=== PATIENT | male | born 1955 | race Caucasian/White ===

== ENCOUNTER 2016-03-06 17:58 | Inpatient (IN) | payer BC ==
[~2016-03-06] VITALS: Ht 170.2 cm; Wt 85.9 kg
[~2016-03-06 17:58] MED LIST: AMLO-114 PO; VALS1TAB33 PO
[2016-03-06] MEDS ORDERED: ASPIRIN 324 MG CHEW PO STA (18:29)
--- NOTE | 2016-03-06 18:32 | EMERGENCY ROOM VISIT NOTE ---
History Report prepared by Cari: Jacob Leon Under the Supervision of: Dr. Eren Davidson M.D. First contact with patient: 18:21 Chief Complaint: TACHYCARDIA Stated Complaint: RACING HEART,LIGHT HEADED, HIGH BP, DIZZY History of Present Illness The patient is a 61 year old male who presents to the Emergency Room with complaints of intermittent episodes of lightheadedness that occurred earlier today. The patient felt like if he did not hold onto something he would have passed out. The patient was experiencing diaphoresis with the lightheadedness episodes. He also felt his heart pounding and felt like he was skipping beats. His symptoms came in waves. He has a history of hypertension, and his blood pressure was even higher than baseline when he measured it earlier today. He did not miss his hypertension medications today. The patient was also experiencing indigestion. He was watching football with friends when the symptoms occurred. He notes that he ate a lot of salty foods today. The patient denies any history of heart disease. He has never had his heart scanned. Source of History: patient Onset: earlier today Position: other (global) Quality: other (lightheadedness) Timing: intermittent Associated Symptoms: + diaphoresis Review of Systems See HPI for pertinent positives & negatives. A total of 10 systems reviewed and were otherwise negative. Past Medical & Surgical Medical Problems: (1) HTN (hypertension) Social History Smoking Status: Never Smoker Marital Status: Housing Status: lives with family Current/Historical Medications Scheduled Amlodipine (Norvasc), 10 MG PO QAM Ascorbic Acid (Vitamin C), 1 TAB PO QAM Atorvastatin (Lipitor), 10 MG PO QPM Fish Oil ([place]-3), 2 CAP PO QAM Multivitamin (Multivitamin), 1 TAB PO QAM Valsartan/Hctz (Valsartan/Hydrochlorothia), 1 TAB PO QAM Allergies Coded Allergies: Levofloxacin (Verified Allergy, Unknown, DIFFICULTY WALKING, 09/17/15) Triamcinolone (Verified Allergy, Unknown, BLEEDING, 09/17/15) Physical Exam Vital Signs Date Time Temp Pulse Resp B/P Pulse Ox O2 Delivery O2 Flow Rate FiO2 03/06/16 18:57 81 144/84 89 145/85 93 140/86 03/06/16 18:37 Room Air 03/06/16 18:29 82 03/06/16 18:14 36.7 86 18 150/93 97 Room Air Physical Exam CONSTITUTIONAL: Mild distress. HEENT: No icterus, moist mucous membranes NECK: No meningismus, trachea is midline. CARDIOVASCULAR: Regular rate, normal perfusion. Infrequent PVCs on monitor. RESPIRATORY: Unlabored breathing. Clear to auscultation. GASTROINTESTINAL: Non-tender GENITOURINARY: No flank tenderness MUSCULOSKELETAL: Full range of motion NEUROLOGIC: No acute gross focal deficits. PSYCHIATRIC: Normal affect SKIN: Normal for ethnicity. Medical Decision & Procedures ER Provider Diagnostic Interpretation: X-ray results as stated below per interpretation by me and the radiologist. SINGLE VIEW CHEST CLINICAL HISTORY: Atypical chest pain. Palpitations. FINDINGS: An AP, portable, upright chest radiograph is compared to study dated 10/04/2008. The examination is degraded by portable technique and patient rotation. The heart is mildly enlarged. The pulmonary vasculature is noncongested. There are low lung volumes. Airspace opacities are seen at the left lung base. The lungs are otherwise clear. No pleural effusion or pneumothorax is seen. The bony thorax is grossly intact. IMPRESSION: 1. There are low lung volumes with airspace opacities at the left lung base. This likely represents atelectasis. Correlate clinically for evidence of an infectious or inflammatory pneumonitis. 2. The lungs are otherwise clear. 3. Mild cardiac enlargement without radiographic evidence of congestive failure. Electronically signed by: Willard Suazo M.D. 03/06/2016 7:35 PM Laboratory Results 03/06/16 18:30 Red Blood Count 4.83, Mean Corpuscular Volume 86.5, Mean Corpuscular Hemoglobin 31.3, Mean Corpuscular Hemoglobin Concent 36.1, Mean Platelet Volume 9.1, Neutrophils (%) (Auto) 55.7, Lymphocytes (%) (Auto) 31.2, Monocytes (%) (Auto) 9.5, Eosinophils (%) (Auto) 2.9, Basophils (%) (Auto) 0.6, Neutrophils # (Auto) 3.98, Lymphocytes # (Auto) 2.23, Monocytes # (Auto) 0.68, Eosinophils # (Auto) 0.21, Basophils # (Auto) 0.04 03/06/16 18:30 Test 03/06/16 18:30 White Blood Count 7.15 K/uL (4.8-10.8) Red Blood Count 4.83 M/uL (4.7-6.1) Hemoglobin 15.1 g/dL (14.0-18.0) Hematocrit 41.8 % (42-52) Mean Corpuscular Volume 86.5 fL (80-100) Mean Corpuscular Hemoglobin 31.3 pg (25-34) Mean Corpuscular Hemoglobin Concent 36.1 g/dl (32-36) Platelet Count 175 K/uL (130-400) Mean Platelet Volume 9.1 fL (7.4-10.4) Neutrophils (%) (Auto) 55.7 % Lymphocytes (%) (Auto) 31.2 % Monocytes (%) (Auto) 9.5 % Eosinophils (%) (Auto) 2.9 % Basophils (%) (Auto) 0.6 % Neutrophils # (Auto) 3.98 K/uL (1.4-6.5) Lymphocytes # (Auto) 2.23 K/uL (1.2-3.4) Monocytes # (Auto) 0.68 K/uL (0.11-0.59) Eosinophils # (Auto) 0.21 K/uL (0-0.5) Basophils # (Auto) 0.04 K/uL (0-0.2) RDW Standard Deviation 40.4 fL (36.4-46.3) RDW Coefficient of Variation 12.8 % (11.5-14.5) Immature Granulocyte % (Auto) 0.1 % Immature Granulocyte # (Auto) 0.01 K/uL (0.00-0.02) Prothrombin Time 10.5 SECONDS (9.0-12.0) Prothromb Time International Ratio 1.0 (0.9-1.1) Activated Partial Thromboplast Time 24.4 SECONDS (21.0-31.0) Partial Thromboplastin Ratio 0.9 Anion Gap 13.0 mmol/L (3-11) Est Creatinine Clear Calc Drug Dose 73.8 ml/min Estimated GFR () 83.5 Estimated GFR (Non- 72.1 BUN/Creatinine Ratio 17.7 (10-20) Calcium Level 9.1 mg/dl (8.5-10.1) Magnesium Level 2.3 mg/dl (1.8-2.4) Troponin I < 0.015 ng/ml (0-0.045) Labs reviewed by ED physician. Medications Administered Medications (Trade) Dose Ordered Sig/Giles Route Start Time Stop Time Status Last Admin Dose Admin Aspirin (Aspirin Chew) 324 mg NOW STAT PO 03/06/16 18:29 03/06/16 18:32 DC 03/06/16 18:59 324 MG ECG Indication: diaphoresis, other (lightheadedness) Rate (beats per minute): 84 Rhythm: sinus rhythm Findings: nonspecific-ST abn, no ectopy, other (normal intervals) ED Course 1823: Past medical records reviewed. The patient was evaluated in room B3b. A complete history and physical examination was performed. 1828: Aspirin 324 mg PO. 1944: Hospitalist service paged. 1947: Updated the patient. He is doing well. I discussed everything with him. He understands and agrees with the plan. 1999: Spoke with Dr. Martinez, [facility]. The patient will be evaluated. 2005: Potassium Chloride 40 meq PO, Potassium Chloride 40 meq IV. Medical Decision Differential diagnosis includes coronary artery disease, cardiac dysrhythmia, electrolyte abnormality. 61-year-old without previous cardiac history presents to the emergency room this New Year's for evaluation of palpitations, nausea and lightheadedness with near-syncope but no loss of consciousness. Review of systems was negative for cardiac or pulmonary complaints and no prior history of cardiac disease. EKG did not show any ST changes concerning for STEMI and troponin was normal. Potassium noted to be 2.8 and patient is on valsartan hydrochlorothiazide as well as amlodipine for high blood pressure. He remained hemodynamically stable throughout the emergency room course without any palpitations or chest pains although infrequent PVCs were noted on the monitor. Potassium supplementation was ordered both IV and by mouth and case discussed with Dr. Byrd for admission. Consults Time Called: 1994 Consulting Physician: Dr. Martinez [place] Hospitalist Returned Call: 1999 1999: Spoke with Dr. Martinez [facility]. The patient will be evaluated. Impression Primary Impression: Palpitations Additional Impression: Hypokalemia Scribe Attestation The scribe's documentation has been prepared under my direction and personally reviewed by me in its entirety. I confirm that the note above accurately reflects all work, treatment, procedures, and medical decision making performed by me. Departure Information Dispostion Being Evaluated By Hospitalist Referrals Hever Myers M.D. (PCP) Patient Instructions A Signature Page, My [facility]
[2016-03-06 18:48] LABS: BASO % 0.6 %; BASO ABS # 0.04 K/uL (0-0.2); COMPLETE YES; EOS % 2.9 %; HEMATOCRIT 41.8 % (42-52); IG% 0.1 %; LYMPH % 31.2 %; LYMPH ABS # 2.23 K/uL (1.2-3.4); MEAN CELL VOLUME 86.5 fL (80-100); MEAN CORPUSCULAR HEMOGLOBIN 31.3 pg (25-34); MEAN CORPUSCULAR HGB CONC 36.1 g/dl (32-36); MEAN PLATELET VOLUME 9.1 fL (7.4-10.4); MONO % 9.5 %; NEUT % 55.7 %; PLATELET COUNT 175 K/uL (130-400); RED BLOOD COUNT 4.83 M/uL (4.7-6.1); WHITE BLOOD COUNT 7.15 K/uL (4.8-10.8)
[2016-03-06 18:58] LABS: PARTIAL THROMBOPLASTIN RATIO 0.9; PROTHROMBIN TIME (PATIENT) 10.5 SECONDS (9.0-12.0)
[2016-03-06 19:05] LABS: BLOOD UREA NITROGEN 19 mg/dl (7-18); BUN/CREATININE RATIO 17.7 (10-20); CALCIUM 9.1 mg/dl (8.5-10.1); CARBON DIOXIDE 26 mmol/L (21-32); CHLORIDE 104 mmol/L (98-107); GLUCOSE 143 mg/dl (70-99); POTASSIUM 2.8 mmol/L (3.5-5.1); SODIUM 143 mmol/L (136-145)
--- NOTE | 2016-03-06 19:37 | DIAGNOSTIC IMAGING REPORT ---
SINGLE VIEW CHEST CLINICAL HISTORY: Atypical chest pain. Palpitations. FINDINGS: An AP, portable, upright chest radiograph is compared to study dated 10/04/2008. The examination is degraded by portable technique and patient rotation. The heart is mildly enlarged. The pulmonary vasculature is noncongested. There are low lung volumes. Airspace opacities are seen at the left lung base. The lungs are otherwise clear. No pleural effusion or pneumothorax is seen. The bony thorax is grossly intact. IMPRESSION: 1. There are low lung volumes with airspace opacities at the left lung base. This likely represents atelectasis. Correlate clinically for evidence of an infectious or inflammatory pneumonitis. 2. The lungs are otherwise clear. 3. Mild cardiac enlargement without radiographic evidence of congestive failure. Electronically signed by: Willard Suazo M.D. 03/06/2016 7:35 PM
[2016-03-06] MEDS ORDERED: POTASSIUM CHLORIDE 10 MEQ / 100ML WTR IV STA (20:06)
[2016-03-06] MEDS ORDERED: POTASSIUM CHLORIDE 10 MEQ TABCR PO STA (20:06)
[2016-03-06] MEDS ORDERED: VALS320T2 PO (20:16)
[2016-03-06] MEDS ORDERED: METOPROLOL TARTRATE 50 MG TAB PO STA (21:13)
[2016-03-06] MEDS ORDERED: NITROGLYCERIN 0.4 MG SL PER TAB CHARGE SL PRN (21:15)
[2016-03-06] MEDS ORDERED: ZOLPIDEM TARTRATE 5 MG TAB PO PRN (21:15)
[2016-03-06] MEDS ORDERED: ACETAMINOPHEN 325 MG TAB PO PRN (21:15)
[2016-03-06] MEDS ORDERED: ONDANSETRON INJ 2 MG/ML 2 ML VIAL IV PRN (21:15)
[2016-03-06 21:34] LABS: CKMB/CK RATIO 1.6 (0-3.0)
[2016-03-06 21:40] VITALS: Ht 170.2 cm; Wt 85.9 kg
[2016-03-06 22:15] VITALS: BP 171/93; PULSE 71; TEMP 36.7; O2SAT 96
[2016-03-06] MEDS: POTASSIUM CHLR 10MEQ / WTR IV SCH ×2 (22:19→23:32)
[2016-03-06] MEDS: NSS + 20MEQ KCL 1000ML 1,000 ML IV SCH (22:20)
[2016-03-06] MEDS: NITROGLYCERIN OINT 2% 1GM PACKET EXT SCH (22:59)
[2016-03-06 23:58] VITALS: BP 144/65; PULSE 61; TEMP 37; O2SAT 91
[2016-03-07] VITALS (7 sets, daily range): BP systolic 125–149; BP diastolic 70–82; PULSE 57–76; TEMP 36.7–37; O2SAT 91–96
[2016-03-07] MEDS: POTASSIUM CHLR 10MEQ / WTR IV SCH (00:46)
--- NOTE | 2016-03-07 02:10 | History and Physical ---
History & Physical Date & Time of Service: Mar 07, 2016 at 01:58 Chief Complaint: Acs,Hypokalemia Primary Care Physician: Hever Myers M.D. History of Present Illness Source: patient The patient is a 61-year-old male who presents emergency department with complaint of intermittent episodes of lightheadedness, diaphoresis, palpitations and near syncope that occurred earlier in the day prior to arrival. He reports that these symptoms happened when he was standing today. He notes that he had been eating a lot of salty foods today which is unusual for him. He's never had these symptoms before, and has never had any stress testing in the past. Past Medical/Surgical History Medical Problems: (1) HTN (hypertension) Status: Chronic Social History Smoking Status: Never Smoker Smokeless Tobacco Use: No Alcohol Use: none Drug Use: none Marital Status: Housing status: lives with family Multi-Drug Resistant Organisms History of MDRO: No Allergies Coded Allergies: Levofloxacin (Verified Allergy, Unknown, DIFFICULTY WALKING, 09/17/15) Triamcinolone (Verified Allergy, Unknown, BLEEDING, 09/17/15) Home Medications Scheduled Amlodipine (Norvasc), 10 MG PO QAM Ascorbic Acid (Vitamin C), 500 MG PO QAM Atorvastatin (Lipitor), 10 MG PO QPM Fish Oil ([place]-3), 2 CAP PO QAM Multivitamin (Multivitamin), 1 TAB PO QAM Valsartan/Hctz (Diovan Hct 320MG/25MG), 1 TAB PO DAILY Review of Systems The patient denies cough, lower extremity swelling, vision change, hearing change, sore throat, fevers, chills, sweats, weight change, fatigue, nausea, vomiting, abdominal pain, pelvic pain, blood in urine or stool, dysuria, urinary frequency or urgency, headache, memory loss, rash, abnormal bruising or bleeding, focal or generalized weakness, numbness or tingling in arms or legs, arthralgias or myalgias, back or neck pain, night sweats, or allergy symptoms. The review of systems is otherwise negative other than for that already noted above, and at least 10 systems have been reviewed. Physical Exam Vital Signs Date Time Temp Pulse Resp B/P Pulse Ox O2 Delivery O2 Flow Rate FiO2 03/07/16 00:05 Room Air 03/06/16 23:58 37.0 61 20 144/65 91 Room Air 03/06/16 22:15 36.7 71 18 171/93 96 Room Air 03/06/16 21:41 98 16 158/98 97 03/06/16 21:40 Room Air 03/06/16 20:33 85 16 164/94 95 Room Air 03/06/16 18:57 81 144/84 89 145/85 93 140/86 03/06/16 18:37 Room Air 03/06/16 18:29 82 03/06/16 18:14 36.7 86 18 150/93 97 Room Air The patient is awake, well-developed and adequately nourished, alert and oriented 3, normocephalic and atraumatic, lying in bed and in no acute distress. HEENT--PERRL, EOMI, mucous membranes moist, and oropharynx normal. Neck--supple, no JVD or bruits, thyroid normal, trachea midline, no adenopathy. Heart--normal S1 and S2, frequent extra beats during exam and noted on monitor, no murmurs, rubs or gallops. Lungs--clear bilaterally with good air movement, no respiratory distress, no accessory muscle use. Abdomen--normal bowel sounds and soft, nontender and nondistended, no hernias or masses, no organomegaly. Extremities--no cyanosis, clubbing or edema. There are good distal pulses b/l. Dermatologic--normal skin turgor, normal color, warm and dry, no abnormal lymph nodes, no rash. Neurologic--cranial nerves II through XII grossly intact. Rheumatologic--normal range of motion, nontender, muscles and joints. Psychiatric--normal affect. Diagnostics Laboratory Results Results Past 24 Hours Test 03/06/16 18:30 03/06/16 20:30 Range/Units White Blood Count 7.15 4.8-10.8 K/uL Red Blood Count 4.83 4.7-6.1 M/uL Hemoglobin 15.1 14.0-18.0 g/dL Hematocrit 41.8 42-52 % Mean Corpuscular Volume 86.5 80-100 fL Mean Corpuscular Hemoglobin 31.3 25-34 pg Mean Corpuscular Hemoglobin Concent 36.1 32-36 g/dl Platelet Count 175 130-400 K/uL Mean Platelet Volume 9.1 7.4-10.4 fL Neutrophils (%) (Auto) 55.7 % Lymphocytes (%) (Auto) 31.2 % Monocytes (%) (Auto) 9.5 % Eosinophils (%) (Auto) 2.9 % Basophils (%) (Auto) 0.6 % Neutrophils # (Auto) 3.98 1.4-6.5 K/uL Lymphocytes # (Auto) 2.23 1.2-3.4 K/uL Monocytes # (Auto) 0.68 0.11-0.59 K/uL Eosinophils # (Auto) 0.21 0-0.5 K/uL Basophils # (Auto) 0.04 0-0.2 K/uL RDW Standard Deviation 40.4 36.4-46.3 fL RDW Coefficient of Variation 12.8 11.5-14.5 % Immature Granulocyte % (Auto) 0.1 % Immature Granulocyte # (Auto) 0.01 0.00-0.02 K/uL Prothrombin Time 10.5 9.0-12.0 SECONDS Prothromb Time International Ratio 1.0 0.9-1.1 Activated Partial Thromboplast Time 24.4 21.0-31.0 SECONDS Partial Thromboplastin Ratio 0.9 Sodium Level 143 136-145 mmol/L Potassium Level 2.8 3.5-5.1 mmol/L Chloride Level 104 98-107 mmol/L Carbon Dioxide Level 26 21-32 mmol/L Anion Gap 13.0 3-11 mmol/L Blood Urea Nitrogen 19 7-18 mg/dl Creatinine 1.10 0.60-1.40 mg/dl Est Creatinine Clear Calc Drug Dose 73.8 ml/min Estimated GFR () 83.5 Estimated GFR (Non- 72.1 BUN/Creatinine Ratio 17.7 10-20 Random Glucose 143 70-99 mg/dl Calcium Level 9.1 8.5-10.1 mg/dl Magnesium Level 2.3 1.8-2.4 mg/dl Troponin I < 0.015 < 0.015 0-0.045 ng/ml Total Creatine Kinase 181 39-308 U/L Creatine Kinase MB 2.9 0.5-3.6 ng/ml Creatine Kinase MB Ratio 1.6 0-3.0 Diagnostic Radiology Patient Name: FLORIN GAUTHIER Horace Unit Number: [id number] Dictated: 03/06/161933 Transcribed: 03/06/161933 EV Printed Date/Time: [~ rep prt dt]/[~ rep prt tm] [~ rep ct labl] - [~ rep ct ivnm] [facility] [place] [address] Dictated: 03/06/161933 Transcribed: 03/06/161933 EV Printed Date/Time: [~ rep prt dt]/[~ rep prt tm] [~ rep ct labl] - [~ rep ct ivnm] CLINICAL HISTORY: Atypical chest pain. Palpitations. FINDINGS: An AP, portable, upright chest radiograph is compared to study dated 10/04/2008. The examination is degraded by portable technique and patient rotation. The heart is mildly enlarged. The pulmonary vasculature is noncongested. There are low lung volumes. Airspace opacities are seen at the left lung base. The lungs are otherwise clear. No pleural effusion or pneumothorax is seen. The bony thorax is grossly intact. IMPRESSION: 1. There are low lung volumes with airspace opacities at the left lung base. This likely represents atelectasis. Correlate clinically for evidence of an infectious or inflammatory pneumonitis. 2. The lungs are otherwise clear. 3. Mild cardiac enlargement without radiographic evidence of congestive failure. Electronically signed by: Willard Suazo M.D. 03/06/2016 7:35 PM The status of this report is Signed. Draft = Not yet reviewed or approved by Radiologist. Signed = Reviewed and approved by Radiologist. <AttendingPhy></AttendingPhy> <FamilyPhy>Hever Myers M.D.</FamilyPhy > <PrimaryPhy>Hever Myers M.D.</PrimaryPhy> <UnitNumber>[id number]</ UnitNumber> <VisitNumber>[id number]</VisitNumber> <PatientName>FLORIN GAUTHIER</PatientName> <DateOfBirth>1955</DateOfBirth> <Location>C.EDB</ Location> <ServiceDate>03/06/16</ServiceDate> <MNE>ESINDI</MNE> <OrderingPhy> Yoon Davidson MD</OrderingPhy> <OrderingPhyMNE>f rep ord dr perkins</OrderingPhyMNE > <DictatingPhyMNE>f rep dict dr perkins</DictatingPhyMNE> <CCListMNE>f rep ct marciae</ CCListMNE> <AdmittingPhyMNE>f pt admit dr perkins</AdmittingPhyMNE> <AttendingPhyMNE >f pt attend dr perkins</AttendingPhyMNE> <ConsultingPhyMNE>f pt consult dr perkins</ConsultingPhyMNE> <FamilyPhyMNE>f pt fam dr perkins</FamilyPhyMNE> <OtherPhyMNE>f pt other dr perkins</OtherPhyMNE> < PrimaryPhyMNE>f pt prim care dr perkins</PrimaryPhyMNE> <ReferringPhyMNE>f pt referring dr perkins</ReferringPhyMNE> EKG EKG shows normal sinus rhythm at 84, with possible old inferior wall IN, ST depressions of 1/2 millimeter in V3 and V5, and 1 mm in V4. Follow up EKG shows resolution of above ST depressions. Impression Assessment and Plan ACS/hypokalemia/PACs/PVCs/near syncope--the patient will be admitted to the telemetry unit, for serial cardiac enzymes, cardiac rhythm monitoring, and a 2- D echocardiogram with Dopplers. He'll be started on aspirin 81 mg by mouth daily, placed on Nitropaste 1 inch ACW every 6 hours. We'll stop amlodipine 10 mg by mouth daily, and start metoprolol tartrate 50 mg by mouth twice a day. We 'll change valsartan/HCTZ 320/25 to valsartan and 320 mg by mouth daily. He is been given potassium chloride 40 mEq by mouth in the ED, and ordered 40 mEq IV as well. We'll order follow-up BMP and magnesium levels for the a.m. We'll consult cardiology to assess patient in the a.m. Hyperlipidemia--continue atorvastatin 10 mg by mouth every afternoon and fish oil 2 capsules by mouth every morning. Hyperglycemia--blood sugar upon admission was 143, which check a hemoglobin A1c. Level of Care Telemetry Advanced Directives Existing Advance Directive: No Existing Living Will: No Existing Power of Bale Coverer: No Resuscitation Status FULL RESUSCITATION VTE Prophylaxis VTE Risk Assessment Done? Y/N: Yes Risk Level: Low Given or contraindicated: SCD's Social Service Consult None Apply
[2016-03-07] MEDS: NITROGLYCERIN OINT 2% 1GM PACKET EXT SCH ×2 (06:03→12:35)
[2016-03-07 07:18] LABS: BASO % 0.6 %; BASO ABS # 0.04 K/uL (0-0.2); COMPLETE YES; EOS % 2.6 %; HEMATOCRIT 37.5 % (42-52); IG% 0.1 %; LYMPH % 27.9 %; LYMPH ABS # 1.91 K/uL (1.2-3.4); MEAN CELL VOLUME 88.2 fL (80-100); MEAN CORPUSCULAR HEMOGLOBIN 30.6 pg (25-34); MEAN CORPUSCULAR HGB CONC 34.7 g/dl (32-36); MEAN PLATELET VOLUME 9.5 fL (7.4-10.4); MONO % 9.8 %; PLATELET COUNT 161 K/uL (130-400); RED BLOOD COUNT 4.25 M/uL (4.7-6.1); WHITE BLOOD COUNT 6.84 K/uL (4.8-10.8)
[2016-03-07 07:28] LABS: PARTIAL THROMBOPLASTIN RATIO 0.9; PROTHROMBIN TIME (PATIENT) 10.5 SECONDS (9.0-12.0)
[2016-03-07 07:47] LABS: BUN/CREATININE RATIO 18.4 (10-20); CALCIUM 8.2 mg/dl (8.5-10.1); CREATININE 0.9 mg/dl (0.60-1.40); MAGNESIUM 2.3 mg/dl (1.8-2.4); POTASSIUM 3.9 mmol/L (3.5-5.1)
[2016-03-07 08:05] LABS: ESTIMATED AVERAGE GLUCOSE 103 mg/dl; HA1C FLAG Normal (Normal)
[2016-03-07] MEDS ORDERED: VALSARTAN 80 MG TAB PO SCH (09:00)
[2016-03-07] MEDS ORDERED: ASCORBIC ACID 500 MG TAB PO SCH (09:00)
[2016-03-07] MEDS: NSS + 20MEQ KCL 1000ML 1,000 ML IV SCH (09:00)
[2016-03-07] MEDS ORDERED: OMEGA-3 (PURIFIED FISH OIL) 1 GM CAP PO SCH (09:00)
[2016-03-07] MEDS ORDERED: METOPROLOL TARTRATE 50 MG TAB PO SCH (09:00)
[2016-03-07] MEDS ORDERED: ASPIRIN 81 MG ECTAB PO SCH (09:00)
[2016-03-07] MEDS ORDERED: MULTIVITAMIN TAB PO SCH (09:00)
[2016-03-07] MEDS ORDERED: POTASSIUM CHLORIDE 20 MEQ/15 ML UDC PO ONE (10:00)
--- NOTE | 2016-03-07 10:46 | ECHOCARDIOGRAM REPORT ---
*NOTICE TO RECEIVING [employer] This information is strictly Confidential and protected under [place] law. [place] law prohibits you from making any further disclosure of this information unless further disclosure is expressly permitted by the written consent of the person to whom it pertains or is authorized by law. A general authorization for the release of medical or other information is not sufficient for this purpose. Hospital accepts no responsibility if the information is made available to any other person, INCLUDING THE PATIENT. Interpretation Summary * Name: FLORIN GAUTHIER Study Date: 03/07/2016 08:00 AM BP: 125/70 mmHg * Patient Location: [facility] HR: 60 * : 1955 (M/d/yyyy) Gender: Male Height: 67 in * Age: 61 yrs Ethnicity: CA Weight: 188 lb * Ordering Physician: SARINA SANDRA MD * Performed By: Nancy Travis * * Reason For Study: ACS * BSA: 2.0 m2 * -- Conclusions -- * 1. Normal LV size and wall thickness. * 2. Normal LV systolic function. LVEF 60-65%. Moderate posterior wall hypokinesis. * 3. Normal RV size and function. * 4. Grade I diastolic dysfunction. * 5. No significant valvular pathology. * 6. Normal estimated RA and PA pressures. * 7. No prior study for comparison. Procedure Details * A complete two-dimensional transthoracic echocardiogram was performed (2D, M-mode, Doppler and color flow Doppler). Left Ventricle * The left ventricle is grossly normal size. * There is normal left ventricular wall thickness. * Ejection Fraction = 60-65%. * There is moderate posterior wall hypokinesis. Right Ventricle * The right ventricle is grossly normal size. * The right ventricular systolic function is normal as assessed by tricuspid annular plane systolic excursion (TAPSE) (normal >1.5 cm). Atria * The left atrial size is normal. * Right atrial size is normal. * No ASD detected; PFO is not assessed. Mitral Valve * The mitral valve is grossly normal. * There is no mitral valve stenosis. * There is trace mitral regurgitation. Tricuspid Valve * The tricuspid valve is not well visualized, but is grossly normal. * There is no tricuspid stenosis. * There is trace tricuspid regurgitation. Aortic Valve * The aortic valve opens well. * No hemodynamically significant valvular aortic stenosis. * There is no significant aortic regurgitation. Pulmonic Valve * The pulmonic valve is not well seen, but is grossly normal. * There is no pulmonic valvular stenosis. * Trace pulmonic valvular regurgitation. Great Vessels * The aortic root and proximal ascending aorta are normal sized. Pericardium/Pleural * There is no pericardial effusion. Great Vessels * Normal inferior vena cava size and collapsability with sniff indicates a normal right atrial pressure of 3 mmHg Left Ventricular Diastolic Function * Grade I diastolic dysfunction, (abnormal relaxation pattern). MMode 2D Measurements and Calculations IVSd 1.1 cm IVSs 1.6 cm LVIDd 4.7 cm LVIDs 3.0 cm LVPWd 0.78 cm LVPWs 2.1 cm IVS/LVPW 1.5 FS 37.7 % EDV(Teich) 104.9 ml ESV(Teich) 33.9 ml EF(Teich) 67.7 % EDV(cubed) 107.1 ml ESV(cubed) 25.9 ml EF(cubed) 75.8 % % IVS thick 35.3 % % LVPW thick 166.2 % LV mass(C)d 158.8 grams LV mass(C)dI 80.6 grams/m\S\2 LV mass(C)s 216.3 grams LV mass(C)sI 109.8 grams/m\S\2 CO(Teich) 3.8 l/min CI(Teich) 1.9 l/min/m\S\2 SV(Teich) 71.0 ml SI(Teich) 36.0 ml/m\S\2 CO(cubed) 4.4 l/min CI(cubed) 2.2 l/min/m\S\2 SV(cubed) 81.2 ml SI(cubed) 41.2 ml/m\S\2 ACS 1.4 cm asc Aorta Diam 3.5 cm LVOT diam 2.3 cm LVOT area 4.0 cm\S\2 LVAd ap4 31.8 cm\S\2 LVLd ap4 8.5 cm EDV(MOD-sp4) 99.1 ml LVAs ap4 15.1 cm\S\2 LVLs ap4 6.8 cm ESV(MOD-sp4) 28.4 ml EF(MOD-sp4) 71.3 % LVAd ap2 28.4 cm\S\2 LVLd ap2 8.1 cm EDV(MOD-sp2) 84.5 ml LVAs ap2 13.8 cm\S\2 LVLs ap2 6.4 cm ESV(MOD-sp2) 25.3 ml EF(MOD-sp2) 70.1 % CO(MOD-sp4) 3.8 l/min CI(MOD-sp4) 1.9 l/min/m\S\2 SV(MOD-sp4) 70.7 ml SI(MOD-sp4) 35.9 ml/m\S\2 CO(MOD-sp2) 3.2 l/min CI(MOD-sp2) 1.6 l/min/m\S\2 SV(MOD-sp2) 59.2 ml SI(MOD-sp2) 30.1 ml/m\S\2 Doppler Measurements and Calculations MV E max magnolia 61.0 cm/sec MV A max magnolia 93.2 cm/sec MV E/A 0.65 MV dec time 0.19 sec Ao V2 max 116.2 cm/sec Ao max PG 5.4 mmHg Ao max PG (full) 1.2 mmHg NOAH(V,A) 3.5 cm\S\2 NOAH(V,D) 3.5 cm\S\2 LV V1 max PG 4.2 mmHg LV V1 mean PG 2.0 mmHg LV V1 max 102.4 cm/sec LV V1 mean 65.5 cm/sec LV V1 VTI 22.2 cm MR max magnolia 499.2 cm/sec MR max PG 99.7 mmHg SV(LVOT) 88.8 ml SI(LVOT) 45.1 ml/m\S\2 PA V2 max 48.7 cm/sec PA max PG 0.95 mmHg PI end-d magnolia 92.3 cm/sec TR max magnolia 264.6 cm/sec
[2016-03-07] MEDS ORDERED: NURSING VERBAL MED ORDER ONE (12:00)
[2016-03-07] MEDS ORDERED: PANTOprazole SOD 40 MG TAB PO ONE (12:15)
--- NOTE | 2016-03-07 15:55 | Medical Student: [facility] ---
Med Student History & Physical Date & Time of Service: Mar 07, 2016 at 15:50 Chief Complaint: Acs,Hypokalemia Primary Care Physician: Hever Myers M.D. History of Present Illness Source: patient, hospital records Pt is a 61 yo male with a history of hypertension and reflux, who presented to the ED yesterday with "severe" lightheadedness, palpitations accompanied by diaphoresis. Pt states these symptoms waxed and waned, with some improvement en route to hospital and worsening upon arrival at hospital. Pt was at a football constitution party eating salty foods when he suddenly felt very light headed and was near syncope. Pt denied any chest pain or shortness of breath associated with the episode. No n/v/d, abdominal pain, fever or chills. Pt denies previous cardiovascular sxs including GA, PVD or stroke. Past Medical/Surgical History Medical Problems: (1) Hypokalemia Status: Acute (2) Palpitations Status: Acute Family History Father - hx of cardiac bypass surgery, T2DM Mother - hx of heart failure, enlarged heart Siblings - no chronic medical conditions known. Social History Smoking Status: Never Smoker Smokeless Tobacco Use: No Alcohol Use: glass of wine daily Drug Use: none Marital Status: Housing status: lives with family Occupational Status: employed Allergies Coded Allergies: Levofloxacin (Verified Allergy, Unknown, DIFFICULTY WALKING, 09/17/15) Triamcinolone (Verified Allergy, Unknown, BLEEDING, 09/17/15) Medications Amlodipine (Norvasc), 10 MG PO QAM Ascorbic Acid (Vitamin C), 500 MG PO QAM Atorvastatin (Lipitor), 10 MG PO QPM Fish Oil ([place]-3), 2 CAP PO QAM Multivitamin (Multivitamin), 1 TAB PO QAM Valsartan (Diovan), 1 TAB PO DAILY Review of Systems Constitutional: + sweats, No chills, No fever Eyes: No diplopia, No worsening of vision Respiratory: No cough, No dyspnea at rest, No dyspnea on exertion, No shortness of breath Cardiovascular: + palpitations, No chest pain, No edema, No orthopnea Abdomen: No constipation, No diarrhea, No nausea, No pain, No vomiting Integumentary: + rash Physical Exam Vital Signs (24 Hours) Date Time Temp Pulse Resp B/P Pulse Ox O2 Delivery O2 Flow Rate FiO2 03/07/16 14:55 37.0 64 16 143/79 95 Room Air 03/07/16 12:00 Room Air 03/07/16 11:42 37.0 58 18 149/82 96 Room Air 03/07/16 09:32 57 03/07/16 08:00 95 Room Air 03/07/16 07:06 36.7 60 20 125/70 95 Room Air 03/07/16 05:05 36.8 76 20 130/72 91 Room Air 03/07/16 04:15 Room Air 03/07/16 00:05 Room Air 03/06/16 23:58 37.0 61 20 144/65 91 Room Air 03/06/16 22:15 36.7 71 18 171/93 96 Room Air 03/06/16 21:41 98 16 158/98 97 03/06/16 21:40 Room Air 03/06/16 20:33 85 16 164/94 95 Room Air 03/06/16 18:57 81 144/84 89 145/85 93 140/86 03/06/16 18:37 Room Air 03/06/16 18:29 82 03/06/16 18:14 36.7 86 18 150/93 97 Room Air General Appearance: WD/WN, no apparent distress Head: normocephalic, atraumatic Eyes: normal inspection, EOMI, sclerae normal Neck: supple, no adenopathy, no JVD, no carotid bruits Respiratory/Chest: lungs clear, normal breath sounds, no respiratory distress, no accessory muscle use Cardiovascular: regular rate, rhythm, no edema, no gallop, no JVD, no murmur, normal peripheral pulses Abdomen/GI: non tender, soft Extremities/Musculoskelatal: normal inspection, no pedal edema Neurologic/Psych: no motor/sensory deficits, alert, normal mood/affect Skin: normal color, warm/dry, no rash Diagnostics Laboratory Results Results Past 24 Hours Test 03/06/16 18:30 03/06/16 20:30 03/07/16 06:36 Range/Units White Blood Count 7.15 6.84 4.8-10.8 K/uL Red Blood Count 4.83 4.25 4.7-6.1 M/uL Hemoglobin 15.1 13.0 14.0-18.0 g/dL Hematocrit 41.8 37.5 42-52 % Mean Corpuscular Volume 86.5 88.2 80-100 fL Mean Corpuscular Hemoglobin 31.3 30.6 25-34 pg Mean Corpuscular Hemoglobin Concent 36.1 34.7 32-36 g/dl Platelet Count 175 161 130-400 K/uL Mean Platelet Volume 9.1 9.5 7.4-10.4 fL Neutrophils (%) (Auto) 55.7 59.0 % Lymphocytes (%) (Auto) 31.2 27.9 % Monocytes (%) (Auto) 9.5 9.8 % Eosinophils (%) (Auto) 2.9 2.6 % Basophils (%) (Auto) 0.6 0.6 % Neutrophils # (Auto) 3.98 4.03 1.4-6.5 K/uL Lymphocytes # (Auto) 2.23 1.91 1.2-3.4 K/uL Monocytes # (Auto) 0.68 0.67 0.11-0.59 K/uL Eosinophils # (Auto) 0.21 0.18 0-0.5 K/uL Basophils # (Auto) 0.04 0.04 0-0.2 K/uL RDW Standard Deviation 40.4 42.6 36.4-46.3 fL RDW Coefficient of Variation 12.8 13.2 11.5-14.5 % Immature Granulocyte % (Auto) 0.1 0.1 % Immature Granulocyte # (Auto) 0.01 0.01 0.00-0.02 K/uL Prothrombin Time 10.5 10.5 9.0-12.0 SECONDS Prothromb Time International Ratio 1.0 1.0 0.9-1.1 Activated Partial Thromboplast Time 24.4 24.6 21.0-31.0 SECONDS Partial Thromboplastin Ratio 0.9 0.9 Sodium Level 143 145 136-145 mmol/L Potassium Level 2.8 3.9 3.5-5.1 mmol/L Chloride Level 104 111 98-107 mmol/L Carbon Dioxide Level 26 26 21-32 mmol/L Anion Gap 13.0 8.0 3-11 mmol/L Blood Urea Nitrogen 19 17 7-18 mg/dl Creatinine 1.10 0.90 0.60-1.40 mg/dl Est Creatinine Clear Calc Drug Dose 73.8 90.3 ml/min Estimated GFR () 83.5 106.5 Estimated GFR (Non- 72.1 91.9 BUN/Creatinine Ratio 17.7 18.4 10-20 Random Glucose 143 101 70-99 mg/dl Calcium Level 9.1 8.2 8.5-10.1 mg/dl Magnesium Level 2.3 2.3 1.8-2.4 mg/dl Troponin I < 0.015 < 0.015 0-0.045 ng/ml Total Creatine Kinase 181 39-308 U/L Creatine Kinase MB 2.9 0.5-3.6 ng/ml Creatine Kinase MB Ratio 1.6 0-3.0 Estimated Average Glucose 103 mg/dl Hemoglobin A1c 5.2 4.5-5.6 % Phosphorus Level 2.6 2.5-4.9 mg/dl Impression Assessment and Plan Pt is 61 yo male who presented with near syncope and was found to be hypokalemic. Possible etiologies include ACS, electrolyte abnormalities secondary to HCTZ, cardiac dysrhythmias. Hypokalemia 1. K replacement with KCL 2. Stop Valsartan/HCTZ, start Valsartan alone to help replenish K. Lightheadedness/PVCs 1. Continue to monitor troponins q 6 hrs. 2. Cardiology Consult - Echocardiogram, Stress Test 3. Monitor BP, bradycardia (likely secondary to beta oscar). Consider d/c pending Cardiology consult. Full Resuscitation. Medical Student Supervision Note: Please see my separate documentation of care for this patient. Documented By: Santiago Zuleta Advanced Directives Existing Advance Directive: No Existing Living Will: No Existing Power of Fabrication Mig Welder: No
[2016-03-07] MEDS ORDERED: AMLO-114 PO (16:13)
[2016-03-07] MEDS ORDERED: VALS320T PO (16:13)
--- NOTE | 2016-03-07 16:17 | Discharge Instructions ---
Discharge Instructions Admission Reason for Admission: Acs,Hypokalemia Discharge Discharge Diagnosis / Problem: Low potassium level. Discharge Goals Goal(s): Improve disease control Activity Recommendations Activity Limitations: resume your previous activity Exercise/Sports Limitations: gradually increase as tolerated May Resume Sexual Activity: when tolerated Shower/Bathe: no limitations Driving or Machine Use: no limitations . Instructions / Follow-Up Instructions / Follow-Up Follow up with your PCP to review your blood pressure medications. Get a "Basic Metabolic Panel" checked to check your POTASSIUM level. This was most recently 3.9 on 03/07/16, and was 2.8 when you were admitted on 03/06/16. Some of your blood pressure medications were also changed The medication VALSARTAN-HYDROCHLOROTHIAZIDE was stopped, and we prescribed VALSARTAN 320mg to take once a day. This was sent to your preferred pharmacy. Keep taking the Amlodipine 10mg once a day. Current Hospital Diet Patient's current hospital diet: AHA Diet (Heart Healthy) Discharge Diet Recommended Diet: AHA Diet (Heart Healthy) Procedures Procedures Performed: Echocardiogram Stress test Pending Studies Studies pending at discharge: no Laboratory Results Hemoglobin A1c Test 03/07/16 06:36 Range/Units Estimated Average Glucose 103 mg/dl Hemoglobin A1c 5.2 4.5-5.6 % Medical Emergencies . Who to Call and When: Medical Emergencies: If at any time you feel your situation is an emergency, please call 911 immediately. . Non-Emergent Contact Non-Emergency issues call your: Primary Care Provider . . "Provider Documentation" section prepared by Janet Brunson. VTE Core Measure Inpt VTE Proph given/why not?: SCD's
--- NOTE | 2016-03-07 16:25 | Discharge Summary ---
Discharge Summary Admission Date: Mar 06, 2016 at 20:59 Discharge Date: Mar 07, 2016 Discharge Disposition: Home Principal Diagnosis: Hypokalemia. Procedures: ECHOCARDIOGRAM 03/07/16: * -- Conclusions -- * 1. Normal LV size and wall thickness. * 2. Normal LV systolic function. LVEF 60-65%. Moderate posterior wall hypokinesis. * 3. Normal RV size and function. * 4. Grade I diastolic dysfunction. * 5. No significant valvular pathology. * 6. Normal estimated RA and PA pressures. * 7. No prior study for comparison. STRESS TEST COMPLETED: Pending final read by time of discharge, but negative per Cardiology. (Janet Brunson MD) Medication Reconciliation New Medications: Valsartan (Diovan) 320 Mg Tab 1 TAB PO DAILY for 30 Days, #30 TAB 5 Refills Continued Medications: Amlodipine (Norvasc) 10 Mg Tab 10 MG PO QAM for 30 Days, #30 TAB (This prescription has been renewed) Ascorbic Acid (Vitamin C) 500 Mg Tab 500 MG PO QAM Atorvastatin (Lipitor) 10 Mg Tab 10 MG PO QPM, TAB Fish Oil ([place]-3) 1 Ea Cap 2 CAP PO QAM, CAP Multivitamin (Multivitamin) Tab 1 TAB PO QAM, TAB Discontinued Medications: Valsartan/Hctz (Diovan Hct 320MG/25MG) 1 Tab Tab 1 TAB PO DAILY, TAB Discharge Exam Review of Systems: Constitutional: No chills, No fatigue, No fever, No sweats, No weakness, No weight loss Eyes: No worsening of vision ENT: No hearing loss Respiratory: No cough, No dyspnea at rest, No dyspnea on exertion, No shortness of breath, No sputum, No wheezing Cardiovascular: No PND, No chest pain, No claudication, No edema, No orthopnea Abdomen: No constipation, No diarrhea, No nausea, No pain, No vomiting Musculoskeletal: No calf pain, No joint pain, No muscle pain, No swelling Genitourinary - Female: No dysuria, No urinary frequency, No urinary urgency Genitourinary - Male: No dysuria, No hematuria, No urinary frequency, No urinary urgency Neurologic: No memory loss, No paralysis, No weakness Psychiatric: No depression symptoms Endocrine: No fatigue Hematologic / Lymphatic: No abnormal bleeding/bruising Integumentary: No rash Physical Exam: General Appearance: WD/WN, no apparent distress Eyes: normal inspection, PERRL ENT: hearing grossly normal Neck: supple, no JVD Respiratory/Chest: lungs clear, normal breath sounds, no respiratory distress Cardiovascular: regular rate, rhythm, no murmur, normal peripheral pulses Abdomen / GI: normal bowel sounds, non tender, soft Extremities: no calf tenderness, no pedal edema Neurologic/Psychiatric: alert, normal mood/affect, normal reflexes, oriented x 3 Skin: no rash Lymphatic: no adenopathy (Janet Brunson MD) Hospital Course HPI: The patient is a 61 year old male who presents to the Emergency Room with complaints of intermittent episodes of lightheadedness that occurred earlier today. The patient felt like if he did not hold onto something he would have passed out. The patient was experiencing diaphoresis with the lightheadedness episodes. He also felt his heart pounding and felt like he was skipping beats. His symptoms came in waves. He has a history of hypertension, and his blood pressure was even higher than baseline when he measured it earlier today. He did not miss his hypertension medications today. The patient was also experiencing indigestion. He was watching football with friends when the symptoms occurred. He notes that he ate a lot of salty foods today. The patient denies any history of heart disease. He has never had his heart scanned. 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 Stress test negative - final report pending. - Was reviewed by Cardiology - BP meds adjusted - Valsartan-HCTZ stopped, Valsartan 320mg daily started, Amlodipine continued, Metoprolol given as inpatient but pt was borderline bradycardic Hypokalemia - Was repleted with PO and IV supplementation - Discharge level 3.9, was 2.8 on admission Hyperlipidemia - Is tolerating 10mg atorvastatin, would recommend increasing to higher dose once BP meds stable Screening for DM - HbA1c <6 Total Time Spent: Greater than 30 minutes This includes examination of the patient, discharge planning, medication reconciliation, and communication with other providers. (Janet Brunson MD) Resident Physician Supervision Note: I was present with Dr. Brunson during the history and exam. I discussed the case with the resident and agree with the findings and plan as documented in the note. I also personally discussed the case with Dr. Lopez of cardiology after he reviewed the stress images. Recommend 1) Stop ARB-HCTZ combination in light of hypokalemia and discharge on ARB. 2) Was started on beta oscar as inpatient but had some bradycardia; given normal stress test, will stop beta oscar and resume home dose of Norvasc. 3) He will need outpatient follow up in 1-2 weeks to check BMP (potassium) and blood pressure. Documented By: Santiago Zuleta (Santiago Zuleta.,D.O.) Discharge Instructions Please refer to the electronic Patient Visit Report (Discharge Instructions) for additional information. (Janet Brunson MD) Follow-Up Within 1 week to have potassium level rechecked and BP checked (Janet Brunson MD) Additional Copies To Hever Myers M.D. Resident Tracking Resident Involvement: Resident Care Provided Care Provided: Adult Hospital Medicine (Janet Brunson MD)
--- NOTE | 2016-03-07 16:26 | EXERCISE STRESS ECHO ---
*NOTICE TO RECEIVING CONSTITUTION PARTY AGENCY This information is strictly Confidential and protected under [place] law. [place] law prohibits you from making any further disclosure of this information unless further disclosure is expressly permitted by the written consent of the person to whom it pertains or is authorized by law. A general authorization for the release of medical or other information is not sufficient for this purpose. Hospital accepts no responsibility if the information is made available to any other person, INCLUDING THE PATIENT. Interpretation Summary * Name: FLORIN GAUTHIER Study Date: 03/07/2016 03:12 PM BP: 157/84 mmHg * Patient Location: [facility] HR: 68 * : 1955 (M/d/yyyy) Gender: Male Height: 67 in * Age: 61 yrs Ethnicity: [place] Weight: 189 lb * Ordering Physician: MD Hever Lopez MD * Performed By: Nancy Travis * * Reason For Study: syncope * BSA: 2.0 m2 * -- Conclusions -- * 1. Negative exercise stress echo for ischemia at 91% MPHR. Appropriate augmentation of resting hypokinetic posterior wall * 2. No exercise induced ST changes. Frequent PVCs with periods of bigeminy during stress. No couplets or sustained arrhythmias. * 3. Excellent functional capacity. Exercised 10:18 mins, achieving 12.2 METS. * 4. No exercise induced chest pain * 5. Normal hemodynamic response to exercise. * 6. See Echo report from earlier today for full details regarding rest images. Procedure Details * ECHOEX, CPT #84851 Left Ventricular Findings with Stress * This was essentially a normal study. Stress Parameters * Normal baseline electrocardiogram. * Stress ECG: No ST changes. No arrhythmias. * Frequent PVCs with periods of bigeminy during stress. No couplets or sustained arrhythmias. * The stress portion of this study was personally supervised by the undersigned interpreting physician. * Rest heart rate was '68' BPM. * Rest blood pressure was '157/84' * Maximum heart rate achieved was 146 bpm. * Maximum heart rate was 91 % of maximum age-predicted heart rate. * Maximum blood pressure was '183/83' * Total exercise time was '10:18' * Maximum exercise MET level achieved was '12.20' METS * Maximum treadmill speed was '4.20' miles per hour. * Maximum treadmill elevation was '16.00'% grade. * Normal blood pressure response to exercise. * Test terminated due to target heart rate achieved. Left Ventricular Findings with Stress * The study was technically adequate.
--- NOTE | 2016-03-07 19:59 | CARDIOLOGY CONSULTATION ---
DATE OF CONSULTATION: 03/07/2016 CONSULTATION REQUESTED BY: Hung Martinez MD REASON FOR CONSULTATION: Chest pain, question of ACS. HISTORY OF PRESENT ILLNESS: Mr. Melara is a very pleasant 61-year-old man with a history of hypertension and GERD, who presented to the Emergency Department yesterday after an episode of lightheadedness and palpitations. The patient states that he had been in his normal state of health up until mid afternoon, when after getting up and talking with guests at his home, he started to feel dizzy with associated palpitations and diaphoresis. He denied any associated chest pain or shortness of breath, but due to the symptoms was concerned and presented to the Emergency Department. The patient states that at baseline he is very active; walks and runs without symptoms, although not as much recently. He denies any prior history of chest pain. He has no significant cardiac history in the past. In the Emergency Department, the patient was initially hypertensive with blood pressure up to the 170s. Orthostatics were negative. He was afebrile and satting well on room air. He had a chest x-ray which showed mild cardiomegaly, but no significant pulmonary vascular congestion and no acute cardiopulmonary process. His troponins were negative x2. He had an initial EKG which showed normal sinus rhythm with no significant dynamic ST changes. There was question of an inferior infarct noted on his first and second EKG, not seen on the third EKG. The patient remained chest pain free. Overnight he was started on aspirin, nitro paste and metoprolol. Overnight on telemetry, he was bradycardic with heart rates to the high 40s and low 50s. PAST MEDICAL HISTORY: 1. Hypertension. 2. GERD. SOCIAL HISTORY: He has never smoked. Denies significant alcohol use. Denies any drug use. He is and lives with his family. 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 ALLERGIES: ALLERGIC TO LEVOFLOXACIN AND TRIAMCINOLONE. HOME MEDICATIONS: Include; amlodipine 10 mg, vitamin C, atorvastatin 10 mg, fish oil, multivitamin, valsartan and hydrochlorothiazide 1 tab p.o. daily. FAMILY HISTORY: Father had coronary artery disease requiring CABG in his 70s. Otherwise, no significant history of premature coronary artery disease or sudden cardiac . REVIEW OF SYSTEMS: A 10-point review of systems was completed and otherwise negative and as listed in the HPI. PHYSICAL EXAMINATION: VITAL SIGNS: Temperature 36.7, pulse 60, blood pressure 125/70, satting 95% on room air. GENERAL: The patient appears comfortable, in no acute distress. He is alert and oriented x3. HEENT: Sclerae are anicteric. Oropharynx is clear. Mucous membranes are moist. NECK: Supple with no lymphadenopathy. LUNGS: Clear to auscultation bilaterally. HEART: Regular rate and rhythm with no murmurs, rubs or gallops. ABDOMEN: Soft, nontender, nondistended with positive bowel sounds and no hepatosplenomegaly. EXTREMITIES: Warm with no significant lower extremity edema. He had intact distal pulses throughout. SKIN: Showed no rashes or lesions. NEUROLOGIC: Cranial nerves II-XII are grossly intact. Remainder of exam was nonfocal. LABORATORY DATA: Hemoglobin 13, white blood cell count 6.8, platelets of 161. INR 1.0. Sodium 145, potassium 3.9, BUN 17, creatinine 0.9, troponin was negative x2. CK-MB was within normal limits at 2.9. IMAGING: Chest x-ray showed no acute cardiopulmonary process with mild cardiomegaly. Echo reviewed by me today shows preserved LV function, with apparent moderate posterior wall hypokinesis. There is no other significant valvular pathology. IMPRESSION AND PLAN: 1. Transient presyncope/palpitations. 2. Posterior wall hypokinesis. 3. Hypertension. 4. Dyslipidemia. The patient presents today with transient episode of presyncope in the setting of diaphoresis and palpitations. EKG and troponin have largely been unremarkable and telemetry has shown no significant arrhythmia. Echocardiogram this morning shows presumably new posterior wall motion abnormality. In that setting with risk factors suspicion for acute coronary syndrome is elevated, although risk of adverse cardiac events is likely low. We will plan to further risk stratify with a stress test. We will obtain an exercise stress echocardiogram later today. Assuming that test is unremarkable, the patient could go home and follow up as an outpatient with continued blood pressure control. These findings were discussed with the primary team. We will follow up with patient while in hospital. Thank you for this consultation. Please contact with any questions. PAUL
[2016-03-07] MEDS ORDERED: ATORVASTATIN 10 MG TAB PO SCH (21:00)
[2017-02-19] MEDS ORDERED: ASCA500 PO (09:12)
[2017-02-19] MEDS ORDERED: OMEG10007 PO (09:12)
[2017-02-19] MEDS ORDERED: ATOR10TA82 PO (09:12)
[2017-02-19] MEDS ORDERED: MULT-506 PO (09:12)
== END 2016-03-07 16:41 | disposition home or self-care (01) | DRG 641 ==
LOC: ENRESERVTM → ENRESERVDT → C.EDB 18:02 → C.MED 20:59
PROVIDERS: ADMIT Hospitalist; ATTEND Hospitalist
DX: E87.6 Hypokalemia (principal); I10 Essential (primary) hypertension; E78.5 Hyperlipidemia, unspecified; K21.9 Gastro-esophageal reflux disease without esophagitis

== ENCOUNTER → 2016-03-17 | Outpatient (CLI) | payer BC, OTHER ==
[~2016-03-17] MED LIST changes: +ASCA500 PO; +ATOR10TA88 PO; +MULT-506 PO; +OMEG10007 PO; -VALS1TAB33 PO; +VALS320T PO
[2016-03-17 18:41] LABS: CHOLESTEROL/HDL RATIO 3.6
[2016-03-17 19:04] LABS: BLOOD UREA NITROGEN 17 mg/dl (7-18); BUN/CREATININE RATIO 18.9 (10-20); CALCIUM 9.3 mg/dl (8.5-10.1); CARBON DIOXIDE 24 mmol/L (21-32); CHLORIDE 106 mmol/L (98-107); CREATININE 0.89 mg/dl (0.60-1.40); GLUCOSE 83 mg/dl (70-99); POTASSIUM 3.8 mmol/L (3.5-5.1); SODIUM 140 mmol/L (136-145)
[2016-03-17 19:07] LABS: ALB/GLOB RATIO 1.2 (0.9-2); ALKALINE PHOSPHATASE 82 U/L (45-117); ALT/SGPT 41 U/L (12-78); AST/SGOT 16 U/L (15-37)
== END | disposition home or self-care (01) ==
LOC: C.LABBFT 12:54
PROVIDERS: ATTEND Internal Medicine
DX: I10 Essential (primary) hypertension (principal); R73.9 Hyperglycemia, unspecified; E87.6 Hypokalemia; E78.5 Hyperlipidemia, unspecified

== ENCOUNTER 2017-02-19 20:31 | Inpatient (IN) | payer BC ==
[~2017-02-19] VITALS: Ht 170.2 cm; Wt 89.3 kg
[~2017-02-19 20:31] MED LIST changes: +ATOR10TA82 PO; -ATOR10TA88 PO
[2017-02-19] MEDS ORDERED: SODIUM CHLORIDE 0.9% 1000ML 1,000 ML IV STA (20:37)
--- NOTE | 2017-02-19 20:50 | EMERGENCY ROOM VISIT NOTE ---
History Report prepared by Cari: Kelley Suggs Under the Supervision of: Dr. Kartik Garcia M.D. First contact with patient: 20:35 Chief Complaint: CARDIAC ASSESSMENT Stated Complaint: etoh, V tach History of Present Illness The patient is a 62 year old who presents to the Emergency Room with complaints of an episode of syncope beginning just [employer]. The patient states that he was watching a football game and was drinking wine tonight. After the game he went home and reports that he felt his heart racing and had an episode of syncope. Just after the fall he had an episode of vomiting and his called the ambulance. The patient was noted to be pale and diaphoretic per EMS. He reports a history of low potassium and notes that he had a stress test 1 year ago. He denies any history of atrial fibrillation. Source of History: patient, EMS Onset: just [employer] Position: other (global) Quality: other (syncope) Timing: other (episode) Associated Symptoms: + vomiting Note: Pt complains of his heart racing. Review of Systems See HPI for pertinent positives & negatives. A total of 10 systems reviewed and were otherwise negative. Past Medical & Surgical Medical Problems: (1) ACS (acute coronary syndrome) (2) HTN (hypertension) Family History No pertinent family history stated. Social History Smoking Status: Never Smoker Alcohol Use: occasionally Drug Use: none Marital Status: Housing Status: lives with family Occupation Status: employed Current/Historical Medications Scheduled Amlodipine Besylate (Norvasc), 10 MG PO QAM Ascorbic Acid (Vitamin C), 500 MG PO QAM Atorvastatin (Lipitor), 10 MG PO QPM Fish Oil ([place]-3), 2 CAP PO QAM Multivitamin (Multivitamin), 1 TAB PO QAM Valsartan (Diovan), 320 MG PO DAILY Allergies Coded Allergies: Levofloxacin (Verified Allergy, Unknown, DIFFICULTY WALKING, 09/17/15) Triamcinolone (Verified Allergy, Unknown, BLEEDING, 09/17/15) Physical Exam Vital Signs Date Time Temp Pulse Resp B/P (MAP) Pulse Ox O2 Delivery O2 Flow Rate FiO2 02/19/17 22:44 64 02/19/17 21:45 67 16 118/72 94 Room Air 02/19/17 21:13 66 15 116/70 96 Room Air 02/19/17 20:47 74 02/19/17 20:47 93 Room Air 02/19/17 20:47 93 Room Air 02/19/17 20:37 93 Room Air 02/19/17 20:37 36.8 82 16 93/64 93 Room Air Physical Exam GENERAL: Patient is a healthy-appearing well-nourished male, he is diaphoretic HEAD: Normocephalic atraumatic EYES: Ocular movements intact pupils equal and react to light OROPHARYNX mucous membranes are moist no exudates present no erythema or edema present NECK: Supple no nuchal rigidity CHEST: Good equal expansion LUNGS: Clear and equal to auscultation CARDIAC: Normal S1 and S2 ABDOMEN: Soft nontender no guarding BACK: No CVA tenderness EXTREMITIES: No pain upon palpation normal muscle strength in all groups no clubbing cyanosis or edema NEURO: Patient is following commands and answering questions appropriately. Alert and oriented x3 Cranial Nerves 2-12 grossly intact Medical Decision & Procedures ER Provider Diagnostic Interpretation: Radiology results as stated below per my review and radiologist interpretation: CHEST ONE VIEW PORTABLE FINDINGS: Mildly low lung volumes with prominence of the cardiomediastinal silhouette and pulmonary vasculature. Lungs and pleural spaces otherwise clear. Osseous structures normal. Upper abdomen normal. IMPRESSION: 1. Mildly low lung volumes with hypoventilatory changes. No convincing evidence of acute cardiopulmonary disease. Electronically signed by: Kyle Bragg M.D. 02/19/2017 9:22 PM Dictated Date/Time: 02/19/2017 9:21 PM Laboratory Results 02/19/17 20:46 Red Blood Count 4.42, Mean Corpuscular Volume 92.3, Mean Corpuscular Hemoglobin 31.2, Mean Corpuscular Hemoglobin Concent 33.8, Mean Platelet Volume 9.9, Neutrophils (%) (Auto) 52.8, Lymphocytes (%) (Auto) 36.1, Monocytes (%) (Auto) 6.7, Eosinophils (%) (Auto) 3.6, Basophils (%) (Auto) 0.4, Neutrophils # (Auto) 4.83, Lymphocytes # (Auto) 3.31, Monocytes # (Auto) 0.61, Eosinophils # (Auto) 0.33, Basophils # (Auto) 0.04 02/19/17 20:46 Test 02/19/17 20:46 02/19/17 20:51 02/19/17 20:54 White Blood Count 9.16 K/uL (4.8-10.8) Red Blood Count 4.42 M/uL (4.7-6.1) Hemoglobin 13.8 g/dL (14.0-18.0) Hematocrit 40.8 % (42-52) Mean Corpuscular Volume 92.3 fL (80-100) Mean Corpuscular Hemoglobin 31.2 pg (25-34) Mean Corpuscular Hemoglobin Concent 33.8 g/dl (32-36) Platelet Count 200 K/uL (130-400) Mean Platelet Volume 9.9 fL (7.4-10.4) Neutrophils (%) (Auto) 52.8 % Lymphocytes (%) (Auto) 36.1 % Monocytes (%) (Auto) 6.7 % Eosinophils (%) (Auto) 3.6 % Basophils (%) (Auto) 0.4 % Neutrophils # (Auto) 4.83 K/uL (1.4-6.5) Lymphocytes # (Auto) 3.31 K/uL (1.2-3.4) Monocytes # (Auto) 0.61 K/uL (0.11-0.59) Eosinophils # (Auto) 0.33 K/uL (0-0.5) Basophils # (Auto) 0.04 K/uL (0-0.2) RDW Standard Deviation 43.7 fL (36.4-46.3) RDW Coefficient of Variation 12.9 % (11.5-14.5) Immature Granulocyte % (Auto) 0.4 % Immature Granulocyte # (Auto) 0.04 K/uL (0.00-0.02) Prothrombin Time 10.4 SECONDS (9.0-12.0) Prothromb Time International Ratio 1.0 (0.9-1.1) Activated Partial Thromboplast Time 21.6 SECONDS (21.0-31.0) Partial Thromboplastin Ratio 0.8 Est Creatinine Clear Calc Drug Dose 52.4 ml/min Estimated GFR () 54.4 Estimated GFR (Non- 46.9 BUN/Creatinine Ratio 11.8 (10-20) Calcium Level 8.4 mg/dl (8.5-10.1) Total Bilirubin 0.8 mg/dl (0.2-1) Direct Bilirubin 0.2 mg/dl (0-0.2) Aspartate Amino Transf (AST/SGOT) 203 U/L (15-37) Alanine Aminotransferase (ALT/SGPT) 173 U/L (12-78) Alkaline Phosphatase 102 U/L (45-117) Total Creatine Kinase 152 U/L (39-308) Creatine Kinase MB 3.1 ng/ml (0.5-3.6) Creatine Kinase MB Ratio 2.0 (0-3.0) Troponin I < 0.015 ng/ml (0-0.045) Total Protein 6.9 gm/dl (6.4-8.2) Albumin 3.7 gm/dl (3.4-5.0) Lipase 219 U/L (73-393) Beta-Hydroxybutyric Acid 1.44 mg/dL (0.2-2.81) Ethyl Alcohol mg/dL < 3.0 mg/dl (0-3) Bedside D-Dimer 431 ng/mlFEU (0-450) Bedside Hemoglobin 13.3 g/dl (14.0-18.0) Bedside Hematocrit 39 % (42-52) Bedside Sodium 141 mEq/L (135-144) Bedside Potassium 2.8 mEq/L (3.3-5.0) Bedside Chloride 102 mEq/L (101-112) Bedside Total CO2 20 mEq/l (24-31) Anion Gap 23.0 mmol/L (16-25) Bedside Blood Urea Nitrogen 18 mg/dl (7-18) Bedside Creatinine 1.3 mg/dl (0.6-1.3) Bedside Glucose (other) 301 mg/dl (70-99) Bedside Ionized Calcium (Kim) 1.15 mmol/l (1.12-1.32) Labs reviewed by ED physician. Medications Administered Medications (Trade) Dose Ordered Sig/Giles Route Start Time Stop Time Status Last Admin Dose Admin Sodium Chloride 1,000 ml @ 999 mls/hr Q1H1M STAT IV 02/19/17 20:37 02/19/17 21:37 DC 02/19/17 20:50 999 MLS/HR Magnesium Sulfate (Magnesium Sulfate) 1 gm NOW STAT IV 02/19/17 21:00 02/19/17 21:02 DC 02/19/17 21:13 1 GM Potassium Chloride (Klor-Con M10) 40 meq NOW STAT PO 02/19/17 21:00 02/19/17 21:02 DC 02/19/17 21:13 40 MEQ Potassium Chloride (Latisha Ciel Elix) 40 meq NOW STAT PO 02/19/17 21:37 02/19/17 21:38 DC 02/19/17 22:34 40 MEQ Metoclopramide HCl (Reglan Inj) 10 mg NOW STAT IV 02/19/17 21:37 02/19/17 21:38 DC 02/19/17 22:34 10 MG ECG Indication: chest pain Rate (beats per minute): 71 Rhythm: atrial fibrillation Findings: no acute ischemic change, no ectopy, other (old inferior infarct) Change: EKG #2: Normal Sinus, 73, 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 The patient was evaluated in room A1. A complete history and physical examination was performed. 2036: Sodium Chloride 1000 ml @ 999 mls/hr IV. 2099: Klor-Con M10 40meq PO, Magnesium Sulfate 1gm IV. 2136: Reglan Inj 10mg IV, Latisha Ciel Elix 40meq PO. 2220: I discussed the patient's case with Dr. Martinez, he has agreed to evaluate the patient for further management and care. 2226: Upon reexamination the patient is doing well. I discussed results and treatment plan with the patient. He verbalizes agreement and understanding. I spoke with Dr. Martinez from the [facility]. The patient will be evaluated for further management. Medical Decision Differential diagnosis: Etiologies such as cardiac ischemia, aortic dissection, pulmonary embolism, pneumonia, pneumothorax, musculoskeletal, infections, pericarditis, myocarditis , esophageal rupture, gastrointestinal, as well as others were entertained. This is a 62-year-old male who presents emergency department after an episode of ventricular tachycardia. I did take medical command on this patient. The patient had a heart rate in excess of 200. He was given IV amiodarone with successful conversion to in atrial fibrillation. The patient was found to have a low potassium level therefore I began repleting his potassium in the emergency department. He was also given a fluid bolus. The patient was found to have an elevation in his blood sugar and appears to be acutely dehydrated. He was sent for CAT scan of the head. I did discuss the case with the hospitalist service who agreed to admit the patient. Patient was in agreement with the treatment plan. Medication Reconcilliation Current Medication List: was personally reviewed by me Blood Pressure Screening Patient's blood pressure: Low blood pressure Blood pressure disposition: Did not require urgent referral Consults Time Called: 2215 Consulting Physician: Dr. Martinez Returned Call: 2220 I discussed the patient's case with Dr. Martinez, he has agreed to evaluate the patient for further management and care. Impression Primary Impression: Ventricular tachycardia Additional Impression: Hypokalemia Critical Care I have personally spent greater than 30 minutes of critical care time in the direct management of this patient. This includes bedside care, interpretation of diagnostic studies, and testing, discussion with consultants, patient, and family members, and other required patient management activities. This 30 minutes is in excess of all separately billable procedures. Scribe Attestation The scribe's documentation has been prepared under my direction and personally reviewed by me in its entirety. I confirm that the note above accurately reflects all work, treatment, procedures, and medical decision making performed by me. Departure Information Dispostion Being Evaluated By Hospitalist Hever Gaona M.D. (PCP) Patient Instructions My [facility] Problem Qualifiers
[2017-02-19] MEDS ORDERED: POTASSIUM CHLORIDE 10 MEQ TABCR PO STA (21:00)
[2017-02-19] MEDS ORDERED: MAGNESIUM SULFATE 1GM / D5W 1 GM BAG IV STA (21:00)
[2017-02-19 21:06] LABS: ISTAT CREATININE 1.3 mg/dl (0.6-1.3); ISTAT HEMOGLOBIN 13.3 g/dl (14.0-18.0); ISTAT IONIZED CALCIUM 1.15 mmol/l (1.12-1.32)
[2017-02-19] MEDS ORDERED: AMLO10TA2 PO (21:11)
[2017-02-19] MEDS ORDERED: VALS320T PO (21:11)
[2017-02-19 21:15] LABS: BASO % 0.4 %; BASO ABS # 0.04 K/uL (0-0.2); COMPLETE YES; EOS % 3.6 %; HEMATOCRIT 40.8 % (42-52); IG% 0.4 %; LYMPH % 36.1 %; LYMPH ABS # 3.31 K/uL (1.2-3.4); MEAN CELL VOLUME 92.3 fL (80-100); MEAN CORPUSCULAR HEMOGLOBIN 31.2 pg (25-34); MEAN CORPUSCULAR HGB CONC 33.8 g/dl (32-36); MEAN PLATELET VOLUME 9.9 fL (7.4-10.4); MONO % 6.7 %; NEUT % 52.8 %; PLATELET COUNT 200 K/uL (130-400); RED BLOOD COUNT 4.42 M/uL (4.7-6.1); WHITE BLOOD COUNT 9.16 K/uL (4.8-10.8)
--- NOTE | 2017-02-19 21:24 | DIAGNOSTIC IMAGING REPORT ---
CHEST ONE VIEW PORTABLE CLINICAL HISTORY: 62 years-old Male presenting with CHEST PAIN. TECHNIQUE: Portable upright AP view of the chest was obtained. COMPARISON: 03/06/2016. FINDINGS: Mildly low lung volumes with prominence of the cardiomediastinal silhouette and pulmonary vasculature. Lungs and pleural spaces otherwise clear. Osseous structures normal. Upper abdomen normal. IMPRESSION: 1. Mildly low lung volumes with hypoventilatory changes. No convincing evidence of acute cardiopulmonary disease. Electronically signed by: Kyle Bragg M.D. 02/19/2017 9:22 PM Dictated Date/Time: 02/19/2017 9:21 PM
[2017-02-19] MEDS ORDERED: POTASSIUM CHLORIDE 20 MEQ/15 ML UDC PO STA (21:37)
[2017-02-19] MEDS ORDERED: METOCLOPRAMIDE HCL INJ 5 MG/ML 2 ML VIAL IV STA (21:37)
[2017-02-19 21:39] LABS: ALT/SGPT 173 U/L (12-78); BLOOD UREA NITROGEN 18 mg/dl (7-18); BUN/CREATININE RATIO 11.8 (10-20); CALCIUM 8.4 mg/dl (8.5-10.1); CARBON DIOXIDE 21 mmol/L (21-32); CHLORIDE 103 mmol/L (98-107); CREATININE 1.56 mg/dl (0.60-1.40); GLUCOSE 301 mg/dl (70-99); POTASSIUM 2.8 mmol/L (3.5-5.1); SODIUM 139 mmol/L (136-145)
[2017-02-19 21:42] LABS: AST/SGOT 203 U/L (15-37)
[2017-02-19 21:49] LABS: ALKALINE PHOSPHATASE 102 U/L (45-117); BETA-HYDROXYBUTYRATE 1.44 mg/dL (0.2-2.81)
[2017-02-19 21:53] LABS: PARTIAL THROMBOPLASTIN RATIO 0.8; PROTHROMBIN TIME (PATIENT) 10.4 SECONDS (9.0-12.0)
--- NOTE | 2017-02-19 22:58 | DIAGNOSTIC IMAGING REPORT ---
HEAD WITHOUT CONTRAST (CT) CLINICAL HISTORY: 62 years-old Male presenting with Pt c/o syncope, EtOH and ventricular tachycardia. TECHNIQUE: Multidetector CT imaging of the head was performed without the use of intravenous contrast. IV contrast: None. A dose lowering technique was used consistent with the principles of ALARA (as low as reasonably achievable). COMPARISON: None. CT DOSE (mGy.cm): The estimated cumulative dose is 614.27 mGy.cm. FINDINGS: Quartz Cutter topogram: Unremarkable. Ventricles and sulci normal in size. Brain parenchyma normal in appearance with preserved corbett-white differentiation. No mass effect or midline shift. No hemorrhage or acute territorial infarct. No extra-axial fluid collection. Paranasal sinuses and mastoid air cells clear. Calvarium intact. IMPRESSION: 1. No acute intracranial abnormality. Electronically signed by: Kyle Bragg M.D. 02/19/2017 10:57 PM Dictated Date/Time: 02/19/2017 10:55 PM
[2017-02-19 22:59] LABS: MAGNESIUM 2.5 mg/dl (1.8-2.4)
[2017-02-20] VITALS (12 sets, daily range): BP systolic 154–172; BP diastolic 78–98; PULSE 58–73; TEMP 36.7–37.3; O2SAT 92–98; Ht 170.2 cm; Wt 89.3 kg
[2017-02-20] MEDS ORDERED: ACETAMINOPHEN 325 MG TAB PO PRN (00:30)
[2017-02-20] MEDS: NSS + 20MEQ KCL 1000ML 1,000 ML IV SCH ×2 (03:04→13:06)
--- NOTE | 2017-02-20 05:06 | History and Physical ---
History & Physical Date & Time of Service: Feb 20, 2017 at 04:55. The patient was seen and examined on 02/19/2017 Chief Complaint: Syncope And Collapse,Ventricular Tachycardia Primary Care Physician: Hever Myers M.D. History of Present Illness Source: patient, hospital records The patient is a 62-year-old male who presents emergency department with a syncopal episode that occurred just prior to arrival. He reports he was watching the [employer] game and was drinking some wine tonight with friends, and when he went home he felt his heart racing and had a syncopal episode. His reports that he then had a vomiting episode, and she called the ambulance. He reports having been admitted for a rapid heart rate in the past, on 03/06/2016, which is thought secondary to low potassium, and he did have a stress test performed that time which was normal. He reports that in route to the hospital, he had another syncopal episode, and EMS reports a heart rate 240 for which he received 300 mg of IV amiodarone in route. Past Medical/Surgical History Medical Problems: (1) HTN (hypertension) Status: Chronic Family History Noncontributory Social History Smoking Status: Never Smoker Smokeless Tobacco Use: No Alcohol Use: history of heavy use in the past Drug Use: none Marital Status: Housing status: lives with family Occupational Status: employed Immunizations History of Influenza Vaccine: Unknown History of Tetanus Vaccine?: Unknown History of Pneumococcal: Unknown History of Hepatitis B Vaccine: Unknown Multi-Drug Resistant Organisms History of MDRO: No Allergies Coded Allergies: Levofloxacin (Verified Allergy, Unknown, DIFFICULTY WALKING, 09/17/15) Triamcinolone (Verified Allergy, Unknown, BLEEDING, 09/17/15) Home Medications Scheduled Amlodipine Besylate (Norvasc), 10 MG PO QAM Ascorbic Acid (Vitamin C), 500 MG PO QAM Atorvastatin (Lipitor), 10 MG PO QPM Fish Oil ([place]-3), 2 CAP PO QAM Multivitamin (Multivitamin), 1 TAB PO QAM Valsartan (Diovan), 320 MG PO DAILY Review of Systems The patient denies chest pain, shortness of breath, cough, lower extremity swelling, vision change, hearing change, sore throat, fevers, chills, sweats, weight change, diarrhea or constipation, abdominal pain, pelvic pain, blood in urine or stool, dysuria, urinary frequency or urgency, rash, abnormal bruising or bleeding, imbalance, focal weakness, numbness or tingling in arms or legs, generalized arthralgias or myalgias, back or neck pain, or night sweats. The review of systems is otherwise negative other than for that already noted above, and at least 10 systems have been reviewed. Physical Exam Vital Signs Date Time Temp Pulse Resp B/P (MAP) Pulse Ox O2 Delivery O2 Flow Rate FiO2 02/20/17 02:14 36.7 73 16 166/82 (110) 98 Room Air 02/20/17 01:51 36.7 73 16 166/82 98 Room Air 02/20/17 01:00 67 20 142/81 92 Room Air 02/20/17 00:30 67 18 144/82 94 Room Air 02/20/17 00:00 69 18 144/78 94 Room Air 02/19/17 23:30 65 20 141/79 91 Room Air 02/19/17 23:00 67 18 135/76 93 Room Air 02/19/17 22:44 64 02/19/17 22:30 65 20 132/77 95 Room Air 02/19/17 22:00 70 21 134/90 95 Room Air 02/19/17 21:45 67 16 118/72 94 Room Air 02/19/17 21:13 66 15 116/70 96 Room Air 02/19/17 20:47 74 02/19/17 20:47 93 Room Air 02/19/17 20:47 93 Room Air 02/19/17 20:37 93 Room Air 02/19/17 20:37 36.8 82 16 93/64 93 Room Air The patient is awake, well-developed and adequately nourished, alert and oriented 3, normocephalic and atraumatic, lying in bed and in no acute distress. HEENT--PERRL, EOMI, mucous membranes and oropharynx dry. Neck--supple, no JVD or bruits, thyroid normal, trachea midline, no adenopathy. Heart--normal S1 and S2, no extra beats, no murmurs, rubs or gallops. Lungs--clear bilaterally with good air movement, no respiratory distress, no accessory muscle use. Abdomen--normal bowel sounds and soft, nontender and nondistended, no hernias or masses, no organomegaly. Extremities--no cyanosis, clubbing or edema. There are good distal pulses b/l. Dermatologic--normal skin turgor, normal color, warm and dry, no abnormal lymph nodes, no rash. Neurologic--cranial nerves II through XII grossly intact. Rheumatologic--normal range of motion. Psychiatric--normal affect. Diagnostics Laboratory Results Results Past 24 Hours Test 02/19/17 20:46 02/19/17 20:51 02/19/17 20:54 Range/Units White Blood Count 9.16 4.8-10.8 K/uL Red Blood Count 4.42 4.7-6.1 M/uL Hemoglobin 13.8 14.0-18.0 g/dL Hematocrit 40.8 42-52 % Mean Corpuscular Volume 92.3 80-100 fL Mean Corpuscular Hemoglobin 31.2 25-34 pg Mean Corpuscular Hemoglobin Concent 33.8 32-36 g/dl Platelet Count 200 130-400 K/uL Mean Platelet Volume 9.9 7.4-10.4 fL Neutrophils (%) (Auto) 52.8 % Lymphocytes (%) (Auto) 36.1 % Monocytes (%) (Auto) 6.7 % Eosinophils (%) (Auto) 3.6 % Basophils (%) (Auto) 0.4 % Neutrophils # (Auto) 4.83 1.4-6.5 K/uL Lymphocytes # (Auto) 3.31 1.2-3.4 K/uL Monocytes # (Auto) 0.61 0.11-0.59 K/uL Eosinophils # (Auto) 0.33 0-0.5 K/uL Basophils # (Auto) 0.04 0-0.2 K/uL RDW Standard Deviation 43.7 36.4-46.3 fL RDW Coefficient of Variation 12.9 11.5-14.5 % Immature Granulocyte % (Auto) 0.4 % Immature Granulocyte # (Auto) 0.04 0.00-0.02 K/uL Prothrombin Time 10.4 9.0-12.0 SECONDS Prothromb Time International Ratio 1.0 0.9-1.1 Activated Partial Thromboplast Time 21.6 21.0-31.0 SECONDS Partial Thromboplastin Ratio 0.8 Sodium Level 139 136-145 mmol/L Potassium Level 2.8 3.5-5.1 mmol/L Chloride Level 103 98-107 mmol/L Carbon Dioxide Level 21 21-32 mmol/L Anion Gap 15.0 23.0 16-25 mmol/L Blood Urea Nitrogen 18 7-18 mg/dl Creatinine 1.56 0.60-1.40 mg/dl Est Creatinine Clear Calc Drug Dose 52.4 ml/min Estimated GFR () 54.4 Estimated GFR (Non- 46.9 BUN/Creatinine Ratio 11.8 10-20 Random Glucose 301 70-99 mg/dl Calcium Level 8.4 8.5-10.1 mg/dl Phosphorus Level 5.0 2.5-4.9 mg/dl Magnesium Level 2.5 1.8-2.4 mg/dl Total Bilirubin 0.8 0.2-1 mg/dl Direct Bilirubin 0.2 0-0.2 mg/dl Aspartate Amino Transf (AST/SGOT) 203 15-37 U/L Alanine Aminotransferase (ALT/SGPT) 173 12-78 U/L Alkaline Phosphatase 102 45-117 U/L Total Creatine Kinase 152 39-308 U/L Creatine Kinase MB 3.1 0.5-3.6 ng/ml Creatine Kinase MB Ratio 2.0 0-3.0 Troponin I < 0.015 0-0.045 ng/ml Total Protein 6.9 6.4-8.2 gm/dl Albumin 3.7 3.4-5.0 gm/dl Lipase 219 73-393 U/L Beta-Hydroxybutyric Acid 1.44 0.2-2.81 mg/dL Ethyl Alcohol mg/dL < 3.0 0-3 mg/dl Bedside D-Dimer 431 0-450 ng/mlFEU Bedside Hemoglobin 13.3 14.0-18.0 g/dl Bedside Hematocrit 39 42-52 % Bedside Sodium 141 135-144 mEq/L Bedside Potassium 2.8 3.3-5.0 mEq/L Bedside Chloride 102 101-112 mEq/L Bedside Total CO2 20 24-31 mEq/l Bedside Blood Urea Nitrogen 18 7-18 mg/dl Bedside Creatinine 1.3 0.6-1.3 mg/dl Bedside Glucose (other) 301 70-99 mg/dl Bedside Ionized Calcium (Kim) 1.15 1.12-1.32 mmol/l Diagnostic Radiology Patient Name: FLORIN GAUTHIER Unit Number: [id number] Dictated: 02/19/172120 Transcribed: 02/19/172120 PBS Printed Date/Time: [~ rep prt dt]/[~ rep prt tm] [~ rep ct labl] - [~ rep ct ivnm] [facility] [place] [address] Dictated: 02/19/172120 Transcribed: 02/19/172120 PBS Printed Date/Time: [~ rep prt dt]/[~ rep prt tm] [~ rep ct labl] - [~ rep ct ivnm] [~ rep ct add3]] CHEST ONE VIEW PORTABLE CLINICAL HISTORY: 62 years-old Male presenting with CHEST PAIN. TECHNIQUE: Portable upright AP view of the chest was obtained. COMPARISON: 03/06/2016. FINDINGS: Mildly low lung volumes with prominence of the cardiomediastinal silhouette and pulmonary vasculature. Lungs and pleural spaces otherwise clear. Osseous structures normal. Upper abdomen normal. IMPRESSION: 1. Mildly low lung volumes with hypoventilatory changes. No convincing evidence of acute cardiopulmonary disease. Electronically signed by: Kyle Bragg M.D. 02/19/2017 9:22 PM Dictated Date/Time: 02/19/2017 9:21 PM The status of this report is Signed. Draft = Not yet reviewed or approved by Radiologist. Signed = Reviewed and approved by Radiologist. <AttendingPhy></AttendingPhy> <FamilyPhy>Hever Myers M.D.</FamilyPhy > <PrimaryPhy>Hever Myers M.D.</PrimaryPhy> <UnitNumber>[id number]</ UnitNumber> <VisitNumber>[id number]</VisitNumber> <PatientName>FLORIN GAUTHIER </PatientName> <DateOfBirth>1955</DateOfBirth> <Location>[facility]</Location> <ServiceDate>02/19/17</ServiceDate> <MNE>ESINDI</MNE> <OrderingPhy>Kartik Gracia MD</OrderingPhy> <OrderingPhyMNE>f rep ord dr perkins</OrderingPhyMNE> < DictatingPhyMNE>f rep dict dr perkins</DictatingPhyMNE> <CCListMNE>f rep ct mne</ CCListMNE> <AdmittingPhyMNE>f pt admit dr perkins</AdmittingPhyMNE> <AttendingPhyMNE >f pt attend dr perkins</AttendingPhyMNE> <ConsultingPhyMNE>f pt consult dr perkins</ConsultingPhyMNE> <FamilyPhyMNE>f pt fam dr perkins</FamilyPhyMNE> <OtherPhyMNE>f pt other dr perkins</OtherPhyMNE> < PrimaryPhyMNE>f pt prim care dr perkins</PrimaryPhyMNE> <ReferringPhyMNE>f pt referring dr perkins</ReferringPhyMNE> Patient Name: FLORIN GAUTHIER Unit Number: [id number] Dictated: 02/19/172254 Transcribed: 02/19/172254 PBS Printed Date/Time: [~ rep prt dt]/[~ rep prt tm] [~ rep ct labl] - [~ rep ct ivnm] [facility] Radiology Department [place] [id number] Dictated: 02/19/172254 Transcribed: 02/19/172254 PBS Printed Date/Time: [~ rep prt dt]/[~ rep prt tm] [~ rep ct labl] - [~ rep ct ivnm] [~ rep ct add3]] HEAD WITHOUT CONTRAST (CT) CLINICAL HISTORY: 62 years-old Male presenting with Pt c/o syncope, EtOH and ventricular tachycardia. TECHNIQUE: Multidetector CT imaging of the head was performed without the use of intravenous contrast. IV contrast: None. A dose lowering technique was used consistent with the principles of ALARA (as low as reasonably achievable). COMPARISON: None. CT DOSE (mGy.cm): The estimated cumulative dose is 614.27 mGy.cm. FINDINGS: [employer] topogram: Unremarkable. Ventricles and sulci normal in size. Brain parenchyma normal in appearance with preserved corbett-white differentiation. No mass effect or midline shift. No hemorrhage or acute territorial infarct. No extra-axial fluid collection. Paranasal sinuses and mastoid air cells clear. Calvarium intact. IMPRESSION: 1. No acute intracranial abnormality. Electronically signed by: Kyle Bragg M.D. 02/19/2017 10:57 PM Dictated Date/Time: 02/19/2017 10:55 PM The status of this report is Signed. Draft = Not yet reviewed or approved by Radiologist. Signed = Reviewed and approved by Radiologist. <AttendingPhy></AttendingPhy> <FamilyPhy>Hever Myers M.D.</FamilyPhy > <PrimaryPhy>Hever Myers M.D.</PrimaryPhy> <UnitNumber>[id number]</ UnitNumber> <VisitNumber>[id number]</VisitNumber> <PatientName>FLORIN GAUTHIER </PatientName> <DateOfBirth>1955</DateOfBirth> <Location>C.[facility]</Location> <ServiceDate>02/19/17</ServiceDate> <MNE>ESINDI</MNE> <OrderingPhy>Kartik Garcia MD</OrderingPhy> <OrderingPhyMNE>f rep ord dr perkins</OrderingPhyMNE> < DictatingPhyMNE>f rep dict dr perkins</DictatingPhyMNE> <CCListMNE>f rep ct gregorio</ CCListMNE> <AdmittingPhyMNE>f pt admit dr perkins</AdmittingPhyMNE> <AttendingPhyMNE >f pt attend dr perkins</AttendingPhyMNE> <ConsultingPhyMNE>f pt consult dr perkins</ConsultingPhyMNE> <FamilyPhyMNE>f pt fam dr perkins</FamilyPhyMNE> <OtherPhyMNE>f pt other dr perkins</OtherPhyMNE> < PrimaryPhyMNE>f pt prim care dr perkins</PrimaryPhyMNE> <ReferringPhyMNE>f pt referring dr perkins</ReferringPhyMNE> EKG Rhythm strip from EMS shows heart rate at 240 bpm, wide-complex tachycardia, V. tach versus atrial fibrillation with aberrancy. EKG in the emergency department shows atrial fibrillation. Follow-up EKG in the emergency department shows normal sinus rhythm at 73 bpm with no acute ST-T changes. Impression Assessment and Plan Syncope/wide-complex tachycardia/atrial fibrillation/conversion to normal sinus rhythm/administration of amiodarone 300 mg IV by EMS-- The patient will be admitted to telemetry for serial cardiac enzymes, cardiac rhythm monitoring and a 2-D echocardiogram with Dopplers. Patient is a normal sinus rhythm at this point, and will not administer any additional amiodarone at this time. Hypokalemia with potassium 2.8 will be corrected with both oral and IV treatments. Repeat BMP and magnesium level in the a.m. Hold amlodipine 10 mg by mouth every morning. Continue Diovan 320 mg by mouth daily with hold parameters Start aspirin 81 mg every morning. Consult cardiology EPS Dr. Vincent. Hyperlipidemia-- continue atorvastatin 10 mg by mouth every evening and fish oil. Level of Care Telemetry Advanced Directives Existing Advance Directive: No Existing Living Will: No Existing Power of Primary Care Provider: No Resuscitation Status FULL RESUSCITATION VTE Prophylaxis VTE Risk Assessment Done? Y/N: Yes Risk Level: Moderate Given or contraindicated: SCD's Social Service Consult None Apply
--- NOTE | 2017-02-20 06:37 | DIAGNOSTIC IMAGING REPORT ---
(RENAL)RETROPERITON COMP HISTORY: 62 years-old Male RENAL INSUFFICIENCY COMPARISON: None available TECHNIQUE: Multiple real-time sonographic images of the kidneys and urinary bladder were obtained assessing grayscale appearance and color Doppler flow. FINDINGS: Right kidney measures 12.4 x 5.9 x 5.6 cm and is within normal limits without renal calculi, hydronephrosis or focal renal mass lesion identified. Cortical medullary differentiation is preserved. Left kidney measures 11.6 x 6.2 x 5.3 cm and demonstrates multiple renal cysts, largest which measures up to 2.1 cm within the inferior pole. Additionally, there are several left-sided shadowing renal calculi present, largest of which measures 7 mm within the region of the upper pole. No associated hydronephrosis or definite solid renal mass lesions identified. Mild trabeculation of the urinary bladder wall. Ureteral jets not identified. IMPRESSION: 1. Multiple nonobstructing left-sided renal calculi. No hydronephrosis. 2. Mild nonspecific trabeculation of the urinary bladder wall . 3. Unremarkable sonographic appearance of the right kidney. The above report was generated using voice recognition software. It may contain grammatical, syntax or spelling errors. Electronically signed by: Hadley Cobb M.D. 02/20/2017 6:36 AM Dictated Date/Time: 02/20/2017 6:33 AM
[2017-02-20 07:02] LABS: ESTIMATED AVERAGE GLUCOSE 100 mg/dl; HA1C FLAG Normal (Normal)
[2017-02-20 07:55] LABS: BASO % 0.1 %; BASO ABS # 0.01 K/uL (0-0.2); EOS % 0.6 %; HEMATOCRIT 37.9 % (42-52); IG% 0.1 %; LYMPH % 16.7 %; LYMPH ABS # 1.29 K/uL (1.2-3.4); MEAN CELL VOLUME 89.8 fL (80-100); MEAN CORPUSCULAR HEMOGLOBIN 31.5 pg (25-34); MEAN PLATELET VOLUME 9.5 fL (7.4-10.4); MONO % 10.3 %; NEUT % 72.2 %; PLATELET COUNT 159 K/uL (130-400); RED BLOOD COUNT 4.22 M/uL (4.7-6.1); WHITE BLOOD COUNT 7.73 K/uL (4.8-10.8)
[2017-02-20 08:01] LABS: COMPLETE YES; MEAN CORPUSCULAR HGB CONC 35.1 g/dl (32-36)
[2017-02-20] MEDS ORDERED: HEPARIN SOD 5000 UNIT/0.5 ML CARP SQ ONE (08:15)
[2017-02-20 08:16] LABS: BUN/CREATININE RATIO 16.1 (10-20); CALCIUM 8.5 mg/dl (8.5-10.1); CREATININE 0.73 mg/dl (0.60-1.40); MAGNESIUM 2.5 mg/dl (1.8-2.4); POTASSIUM 4.1 mmol/L (3.5-5.1)
[2017-02-20] MEDS ORDERED: VALSARTAN 80 MG TAB PO SCH (09:00)
[2017-02-20] MEDS ORDERED: ASCORBIC ACID 500 MG TAB PO SCH (09:00)
[2017-02-20] MEDS ORDERED: ASPIRIN 81 MG ECTAB PO SCH (09:00)
[2017-02-20] MEDS ORDERED: MULTIVITAMIN TAB PO SCH (09:00)
--- NOTE | 2017-02-20 12:01 | ECHOCARDIOGRAM REPORT ---
*NOTICE TO RECEIVING REPUBLICAN AGENCY This information is strictly Confidential and protected under [place] law. [place] law prohibits you from making any further disclosure of this information unless further disclosure is expressly permitted by the written consent of the person to whom it pertains or is authorized by law. A general authorization for the release of medical or other information is not sufficient for this purpose. Hospital accepts no responsibility if the information is made available to any other person, INCLUDING THE PATIENT. Interpretation Summary * Name: FLORIN GAUTHIER Study Date: 02/20/2017 08:25 AM BP: 154/78 mmHg * Patient Location: [facility] HR: 70 * : 1955 (M/d/yyyy) Gender: Male Height: 67 in * Age: 62 yrs Ethnicity: CA Weight: 196 lb * Ordering Physician: Hung Martinez * Performed By: Roberta Chaney RDCS * * Reason For Study: VTACH, SYNCOPE * BSA: 2.0 m2 * -- Conclusions -- * 1. Normal LV size. Normal LV wall thickness. * 2. Normal LV systolic function. LVEF 60-65%. No regional wall motion abnormalities. * 3. Normal RV size and function. * 4. Mild mitral regurgitation. * 5. Compared with prior study on 03/07/2016: No regional wall motion abnormalities. Procedure Details * A complete two-dimensional transthoracic echocardiogram was performed (2D, M-mode, Doppler and color flow Doppler). Left Ventricle * The left ventricle is grossly normal size. * There is normal left ventricular wall thickness. * Ejection Fraction = 60-65%. * No regional wall motion abnormalities noted. Right Ventricle * The right ventricle is grossly normal size. * The right ventricular systolic function is normal as assessed by tricuspid annular plane systolic excursion (TAPSE) (normal >1.5 cm). Atria * The left atrial size is normal. * Right atrial size is normal. * No ASD detected; PFO is not assessed. Mitral Valve * The mitral valve is grossly normal. * There is no mitral valve stenosis. * There is mild mitral regurgitation. Tricuspid Valve * The tricuspid valve is not well visualized, but is grossly normal. * There is trace tricuspid regurgitation. Aortic Valve * The aortic valve is normal in structure and function. * The aortic valve is trileaflet. * No hemodynamically significant valvular aortic stenosis. * There is no significant aortic regurgitation. Pulmonic Valve * The pulmonary valve is inadequately visualized, but the Doppler data is adequate for interpretation. * Pulmonic stenosis is absent. * There is no significant pulmonary regurgitation. Great Vessels * The aortic root and proximal ascending aorta are normal sized. Pericardium/Pleural * There is no pericardial effusion. Great Vessels * IVC > 2.1, >50% change with respiration. Est RA 8 mmHg. MMode 2D Measurements and Calculations IVSd 1.3 cm IVSs 1.8 cm LVIDd 4.6 cm LVIDs 2.9 cm LVPWd 1.3 cm LVPWs 1.5 cm IVS/LVPW 10 FS 37.4 % EDV(Teich) 97.8 ml ESV(Teich) 31.8 ml EF(Teich) 67.5 % EDV(cubed) 97.9 ml ESV(cubed) 24.0 ml EF(cubed) 75.5 % % IVS thick 44.8 % % LVPW thick 20.1 % LV mass(C)d 223.5 grams LV mass(C)dI 111.5 grams/m\S\2 LV mass(C)s 183.9 grams LV mass(C)sI 91.7 grams/m\S\2 SV(Teich) 66.0 ml SI(Teich) 32.9 ml/m\S\2 SV(cubed) 73.9 ml SI(cubed) 36.9 ml/m\S\2 LA dimension 4.0 cm LVAd ap4 34.2 cm\S\2 LVLd ap4 8.7 cm EDV(MOD-sp4) 110.3 ml EDV(sp4-el) 114.5 ml LVAs ap4 19.0 cm\S\2 LVLs ap4 7.5 cm ESV(MOD-sp4) 41.6 ml ESV(sp4-el) 40.6 ml EF(MOD-sp4) 62.3 % EF(sp4-el) 64.5 % LVAd ap2 35.9 cm\S\2 LVLd ap2 8.8 cm EDV(MOD-sp2) 117.2 ml EDV(sp2-el) 124.1 ml LVAs ap2 20.3 cm\S\2 LVLs ap2 7.9 cm ESV(MOD-sp2) 46.0 ml ESV(sp2-el) 44.5 ml EF(MOD-sp2) 60.7 % EF(sp2-el) 64.2 % LVLd %diff 2.0 % EDV(MOD-bp) 115.2 ml LVLs %diff 4.4 % ESV(MOD-bp) 44.1 ml EF(MOD-bp) 61.7 % SV(MOD-sp4) 68.7 ml SI(MOD-sp4) 34.3 ml/m\S\2 SV(MOD-sp2) 71.2 ml SI(MOD-sp2) 35.5 ml/m\S\2 SV(MOD-bp) 71.1 ml SI(MOD-bp) 35.5 ml/m\S\2 SV(sp4-el) 73.9 ml SI(sp4-el) 36.9 ml/m\S\2 SV(sp2-el) 79.6 ml SI(sp2-el) 39.7 ml/m\S\2 Doppler Measurements and Calculations MV E max magnolia 97.6 cm/sec MV A max magnolia 100.3 cm/sec MV E/A 0.97 MV dec time 0.25 sec Ao V2 max 173.2 cm/sec Ao max PG 12.0 mmHg Ao max PG (full) 7.4 mmHg LV V1 max PG 4.6 mmHg LV V1 max 107.5 cm/sec TR max magnolia 282.9 cm/sec
--- NOTE | 2017-02-20 13:13 | Hospitalist Progress Note ---
Hospitalist Progress Note Date of Service Feb 20, 2017. (Jodi Velasquez ., PA-C) Subjective Pt evaluation today including: conversation w/ patient, physical exam, lab review, review of studies, review of inpatient medication list Voiding: no voiding problems Patient resting in bed. Denies any more palpations, lightheadedness/dizziness since admission. States he felt his heart racing yesterday while eating dinner. He felt extremely lightheaded, then had a syncope event. Had a similar experience in March- was hypokalemic at that time. K was corrected and HCTZ was discontinued. Symptoms of lightheadedness/dizziness- no syncopal event, and palpitations. Had cardiology workup at that time, which was negative. Was not instructed to f/u w/ cardiology outpatient. Went for ECHO this AM. Patient denies any fever, chills, sweats, lightheadedness, dizziness, vision changes, CP, palpitations, edema, SOB, wheezing, cough, abdominal pain, nausea, vomiting, diarrhea, urinary symptoms, melena, numbness/tingling, weakness, muscle/joint pain, anxiety/depression, active bleeding, or new skin discoloration/changes. (Jodi Velasquez ., PA-C) Medications Current Inpatient Medications Medications (Trade) Dose Ordered Sig/Giles Route Start Time Stop Time Status Last Admin Dose Admin Potassium Chloride/Sodium Chloride 1,000 ml @ 100 mls/hr Q10H IV 02/20/17 03:00 03/22/17 00:28 02/20/17 03:04 100 MLS/HR Acetaminophen (Tylenol Tab) 650 mg Q4H PRN PO 02/20/17 00:30 03/22/17 00:29 Ascorbic Acid (Vitamin C Tab) 500 mg QAM PO 02/20/17 09:00 03/22/17 08:59 02/20/17 08:20 500 MG Atorvastatin Calcium (Lipitor Tab) 10 mg QPM PO 02/20/17 21:00 03/22/17 20:59 Multivitamins (Multivitamin Tab) 1 tab QAM PO 02/20/17 09:00 03/22/17 08:59 02/20/17 08:22 1 TAB Valsartan (Diovan Tab) 320 mg DAILY PO 02/20/17 09:00 03/22/17 08:59 02/20/17 08:21 320 MG Aspirin (Ecotrin Tab) 81 mg QAM PO 02/20/17 09:00 03/22/17 08:59 02/20/17 08:22 81 MG Heparin Sodium (Porcine) (Heparin Sq 5000 Unit/0.5ml) 5,000 unit Q8 SQ 02/20/17 14:00 03/22/17 13:59 (Jodi Velasquez PA-C) Objective Vital Signs Date Time Temp Pulse Resp B/P (MAP) Pulse Ox O2 Delivery O2 Flow Rate FiO2 02/20/17 12:00 94 Room Air 02/20/17 11:16 37.3 64 18 172/88 (116) 94 Room Air 02/20/17 08:00 92 Room Air 02/20/17 07:17 36.9 70 18 154/78 (103) 92 Room Air 02/20/17 06:28 162/83 (109) 02/20/17 04:00 Room Air 02/20/17 02:14 36.7 73 16 166/82 (110) 98 Room Air 02/20/17 01:51 36.7 73 16 166/82 98 Room Air 02/20/17 01:00 67 20 142/81 92 Room Air 02/20/17 00:30 67 18 144/82 94 Room Air 02/20/17 00:00 69 18 144/78 94 Room Air 02/19/17 23:30 65 20 141/79 91 Room Air 02/19/17 23:00 67 18 135/76 93 Room Air 02/19/17 22:44 64 02/19/17 22:30 65 20 132/77 95 Room Air 02/19/17 22:00 70 21 134/90 95 Room Air 02/19/17 21:45 67 16 118/72 94 Room Air 02/19/17 21:13 66 15 116/70 96 Room Air 02/19/17 20:47 74 02/19/17 20:47 93 Room Air 02/19/17 20:47 93 Room Air 02/19/17 20:37 93 Room Air 02/19/17 20:37 36.8 82 16 93/64 93 Room Air (Jodi Velasquez PA-C) Physical Exam General Appearance: no apparent distress Eyes: normal inspection, PERRL ENT: hearing grossly normal Neck: supple Respiratory/Chest: lungs clear, no respiratory distress, no accessory muscle use Cardiovascular: regular rate, rhythm Abdomen: normal bowel sounds, non tender, soft Extremities: no pedal edema, no calf tenderness Neurologic/Psychiatric: alert, normal mood/affect, oriented x 3 Skin: normal color, warm/dry, no rash (Jodi Velasquez, JAMARCUS) Laboratory Results Last 24 Hours Test 02/19/17 20:46 02/19/17 20:51 02/19/17 20:54 02/20/17 07:42 White Blood Count 9.16 K/uL 7.73 K/uL Red Blood Count 4.42 M/uL 4.22 M/uL Hemoglobin 13.8 g/dL 13.3 g/dL Hematocrit 40.8 % 37.9 % Mean Corpuscular Volume 92.3 fL 89.8 fL Mean Corpuscular Hemoglobin 31.2 pg 31.5 pg Mean Corpuscular Hemoglobin Concent 33.8 g/dl 35.1 g/dl Platelet Count 200 K/uL 159 K/uL Mean Platelet Volume 9.9 fL 9.5 fL Neutrophils (%) (Auto) 52.8 % 72.2 % Lymphocytes (%) (Auto) 36.1 % 16.7 % Monocytes (%) (Auto) 6.7 % 10.3 % Eosinophils (%) (Auto) 3.6 % 0.6 % Basophils (%) (Auto) 0.4 % 0.1 % Neutrophils # (Auto) 4.83 K/uL 5.57 K/uL Lymphocytes # (Auto) 3.31 K/uL 1.29 K/uL Monocytes # (Auto) 0.61 K/uL 0.80 K/uL Eosinophils # (Auto) 0.33 K/uL 0.05 K/uL Basophils # (Auto) 0.04 K/uL 0.01 K/uL RDW Standard Deviation 43.7 fL 42.6 fL RDW Coefficient of Variation 12.9 % 13.1 % Immature Granulocyte % (Auto) 0.4 % 0.1 % Immature Granulocyte # (Auto) 0.04 K/uL 0.01 K/uL Prothrombin Time 10.4 SECONDS Prothromb Time International Ratio 1.0 Activated Partial Thromboplast Time 21.6 SECONDS Partial Thromboplastin Ratio 0.8 Sodium Level 139 mmol/L 141 mmol/L Potassium Level 2.8 mmol/L 4.1 mmol/L Chloride Level 103 mmol/L 110 mmol/L Carbon Dioxide Level 21 mmol/L 23 mmol/L Anion Gap 15.0 mmol/L 23.0 mmol/L 9.0 mmol/L Blood Urea Nitrogen 18 mg/dl 12 mg/dl Creatinine 1.56 mg/dl 0.73 mg/dl Est Creatinine Clear Calc Drug Dose 52.4 ml/min 111.9 ml/min Estimated GFR () 54.4 115.2 Estimated GFR (Non- 46.9 99.4 BUN/Creatinine Ratio 11.8 16.1 Random Glucose 301 mg/dl 92 mg/dl Estimated Average Glucose 100 mg/dl Hemoglobin A1c 5.1 % Calcium Level 8.4 mg/dl 8.5 mg/dl Phosphorus Level 5.0 mg/dl Magnesium Level 2.5 mg/dl 2.5 mg/dl Total Bilirubin 0.8 mg/dl 0.8 mg/dl Direct Bilirubin 0.2 mg/dl 0.2 mg/dl Aspartate Amino Transf (AST/SGOT) 203 U/L 99 U/L Alanine Aminotransferase (ALT/SGPT) 173 U/L 174 U/L Alkaline Phosphatase 102 U/L 91 U/L Total Creatine Kinase 152 U/L Creatine Kinase MB 3.1 ng/ml Creatine Kinase MB Ratio 2.0 Troponin I < 0.015 ng/ml 0.848 ng/ml Total Protein 6.9 gm/dl 6.6 gm/dl Albumin 3.7 gm/dl 3.5 gm/dl Lipase 219 U/L Beta-Hydroxybutyric Acid 1.44 mg/dL Ethyl Alcohol mg/dL < 3.0 mg/dl Bedside D-Dimer 431 ng/mlFEU Bedside Hemoglobin 13.3 g/dl Bedside Hematocrit 39 % Bedside Sodium 141 mEq/L Bedside Potassium 2.8 mEq/L Bedside Chloride 102 mEq/L Bedside Total CO2 20 mEq/l Bedside Blood Urea Nitrogen 18 mg/dl Bedside Creatinine 1.3 mg/dl Bedside Glucose (other) 301 mg/dl Bedside Ionized Calcium (Kim) 1.15 mmol/l (Jodi Velasquez, JAMARCUS) Assessment and Plan The patient is a 62-year-old male who presents emergency department with a syncopal episode that occurred just prior to arrival. He reports he was watching the [employer] game and was drinking some wine tonight with friends, and when he went home he felt his heart racing and had a syncopal episode. His reports that he then had a vomiting episode, and she called the ambulance. He reports having been admitted for a rapid heart rate in the past, on 03/06/2016, which is thought secondary to low potassium, and he did have a stress test performed that time which was normal. He reports that in route to the hospital, he had another syncopal episode, and EMS reports a heart rate 240 for which he received 300 mg of IV amiodarone in route. Syncope, wide-complex tachycardia, atrial fibrillation- converted to NSR, hypokalemia at 2.8: - Admit to tele for cardiac monitoring- NSR w/ rates in 70s since admission - Trending cardiac enzymes- mild troponin elevation at 0.848 - EKG QAM and PRN for chest pain - Treated w/ IV Amiodarone 300 mg x1, IV Mag 1 gm x1 - Hypokalemia now 4.1- replaced w/ 40 mEq KCL PO supplement x2 + IVF w/ KCL supplement @ 100 ml/hr -- ?etiology of hypoK- check urine sodium, potassium, osmolality- recommend outpatient nephrology f/u -- Start 10 mEq KCL supplement BID - ECHO: EF 60-65%, no wall abnormalities, mild mitral regurgitation - Head CT unremarkable for acute findings - Start ASA 81 mg daily - Consult cardiology, appreciate recommendations- planning for EP study tomorrow HTN: - Amlodipine 10 mg QAM held at admission due to hypotension- BPs improved, resume tomorrow - Continue Diovan 320 mg daily Hyperlipidemia: Continue Atorvastatin 10 mg QPM, fish oil JEFFREY w/ psychiatric lpn at 1.59 at admission- RESOLVED: - Treated w/ IVF, will d/c - Renal US unremarkable DVT prophylaxis: Heparin SQ TID Code Status: LEVEL I, FULL Dispo: Discharge to home once medically stable (Jodi Velasquez ., PA-C)
[2017-02-20] MEDS: HEPARIN SOD 5000 UNIT/0.5 ML CARP SQ SCH ×2 (14:38→21:12)
[2017-02-20] MEDS ORDERED: METOPROLOL TARTRATE 50 MG TAB PO ONE (15:04)
--- NOTE | 2017-02-20 15:18 | Discharge Instructions ---
Discharge Instructions Date of Service Feb 20, 2017. Admission Reason for Admission: Syncope And Collapse,Ventricular Tachycardia Discharge Discharge Diagnosis / Problem: Ventricular trachcardia, syncope, hypokalemia, HTN Discharge Goals Goal(s): Decrease discomfort, Improve function, Improve disease control, Learn about illness, Diagnostic testing, Therapeutic intervention, Prevent Disease Progression Activity Recommendations Activity Limitations: per Instructions/Follow-up section (As per [facility] instructions when discharged from [facility] facility ) . Instructions / Follow-Up Instructions / Follow-Up Please refer to [facility] instructions at discharge from their facility. FOLLOWS-UPS: Please follow-up with your PCP within 5-7 days after discharge from [facility] Please follow-up with Nephrology within 1-2 weeks after discharge from [facility] for continued hypokalemia workup Please follow-up/keep all of your subspecialty appointments Other follow-ups as per [facility] provider Current Hospital Diet Patient's current hospital diet: AHA Diet (Heart Healthy) Discharge Diet Recommended Diet: AHA Diet (Heart Healthy) Pending Studies Studies pending at discharge: no Laboratory Results Hemoglobin A1c Test 02/19/17 20:46 Range/Units Estimated Average Glucose 100 mg/dl Hemoglobin A1c 5.1 4.5-5.6 % Medical Emergencies . Who to Call and When: Medical Emergencies: If at any time you feel your situation is an emergency, please call 911 immediately. . Non-Emergent Contact Non-Emergency issues call your: Primary Care Provider . . "Provider Documentation" section prepared by Jodi Velasquez. . VTE Core Measure Inpt VTE Proph given/why not?: Unfractionated heparin SQ, SCD's
[2017-02-20] MEDS ORDERED: METO50TA16 PO (15:19)
[2017-02-20] MEDS ORDERED: POTA10CA28 PO (15:19)
[2017-02-20] MEDS ORDERED: ASPEC81 PO (15:19)
--- NOTE | 2017-02-20 15:23 | Discharge Summary ---
Discharge Summary Date of Service Feb 20, 2017. Discharge Summary Admission Date: Feb 20, 2017 at 00:28 Discharge Date: Feb 20, 2017 Discharge Disposition: Acute care facility ([facility]) Principal Diagnosis: Ventricular Tachycardia, Syncope Problems/Secondary Diagnoses: Syncope Lone atrial fibrillation Demand ischemia Hypokalemia HTN Hyperlipidemia JEFFREY Mild mitral regurgitation Immunizations: Have You Had Influenza Vaccine: Unknown History of Tetanus Vaccine?: Unknown History of Pneumococcal: Unknown History of Hepatitis B Vaccine: Unknown Procedures: ECHOCARDIOGRAM: Interpretation Summary * Name: FLORIN GAUTHIER Study Date: 02/20/2017 08:25 AM BP: 154/78 mmHg * Patient Location: [facility] HR: 70 * : 1955 (M/d/yyyy) Gender: Male Height: 67 in * Age: 62 yrs Ethnicity: AR Weight: 196 lb * Ordering Physician: Hung Martinez * Performed By: Roberta Chaney RDCS * * Reason For Study: VTACH, SYNCOPE * BSA: 2.0 m2 * -- Conclusions -- * 1. Normal LV size. Normal LV wall thickness. * 2. Normal LV systolic function. LVEF 60-65%. No regional wall motion abnormalities. * 3. Normal RV size and function. * 4. Mild mitral regurgitation. * 5. Compared with prior study on 03/07/2016: No regional wall motion abnormalities. Procedure Details * A complete two-dimensional transthoracic echocardiogram was performed (2D, M-mode, Doppler and color flow Doppler). Left Ventricle * The left ventricle is grossly normal size. * There is normal left ventricular wall thickness. * Ejection Fraction = 60-65%. * No regional wall motion abnormalities noted. Right Ventricle * The right ventricle is grossly normal size. * The right ventricular systolic function is normal as assessed by tricuspid annular plane systolic excursion (TAPSE) (normal >1.5 cm). Atria * The left atrial size is normal. * Right atrial size is normal. * No ASD detected; PFO is not assessed. Mitral Valve * The mitral valve is grossly normal. * There is no mitral valve stenosis. * There is mild mitral regurgitation. Tricuspid Valve * The tricuspid valve is not well visualized, but is grossly normal. * There is trace tricuspid regurgitation. Aortic Valve * The aortic valve is normal in structure and function. * The aortic valve is trileaflet. * No hemodynamically significant valvular aortic stenosis. * There is no significant aortic regurgitation. Pulmonic Valve * The pulmonary valve is inadequately visualized, but the Doppler data is adequate for interpretation. * Pulmonic stenosis is absent. * There is no significant pulmonary regurgitation. Great Vessels * The aortic root and proximal ascending aorta are normal sized. Pericardium/Pleural * There is no pericardial effusion. Great Vessels * IVC > 2.1, >50% change with respiration. Est RA 8 mmHg. CHEST ONE VIEW PORTABLE CLINICAL HISTORY: 62 years-old Male presenting with CHEST PAIN. TECHNIQUE: Portable upright AP view of the chest was obtained. COMPARISON: 03/06/2016. FINDINGS: Mildly low lung volumes with prominence of the cardiomediastinal silhouette and pulmonary vasculature. Lungs and pleural spaces otherwise clear. Osseous structures normal. Upper abdomen normal. IMPRESSION: 1. Mildly low lung volumes with hypoventilatory changes. No convincing evidence of acute cardiopulmonary disease. Electronically signed by: Kyle Bragg M.D. 02/19/2017 9:22 PM Dictated Date/Time: 02/19/2017 9:21 PM The status of this report is Signed. Draft = Not yet reviewed or approved by Radiologist. Signed = Reviewed and approved by Radiologist. HEAD WITHOUT CONTRAST (CT) CLINICAL HISTORY: 62 years-old Male presenting with Pt c/o syncope, EtOH and ventricular tachycardia. TECHNIQUE: Multidetector CT imaging of the head was performed without the use of intravenous contrast. IV contrast: None. A dose lowering technique was used consistent with the principles of ALARA (as low as reasonably achievable). COMPARISON: None. CT DOSE (mGy.cm): The estimated cumulative dose is 614.27 mGy.cm. FINDINGS: Restaurant Operations Manager topogram: Unremarkable. Ventricles and sulci normal in size. Brain parenchyma normal in appearance with preserved corbett-white differentiation. No mass effect or midline shift. No hemorrhage or acute territorial infarct. No extra-axial fluid collection. Paranasal sinuses and mastoid air cells clear. Calvarium intact. IMPRESSION: 1. No acute intracranial abnormality. Electronically signed by: Kyle Bragg M.D. 02/19/2017 10:57 PM Dictated Date/Time: 02/19/2017 10:55 PM The status of this report is Signed. Draft = Not yet reviewed or approved by Radiologist. Signed = Reviewed and approved by Radiologist. (RENAL)RETROPERITON COMP HISTORY: 62 years-old Male RENAL INSUFFICIENCY COMPARISON: None available TECHNIQUE: Multiple real-time sonographic images of the kidneys and urinary bladder were obtained assessing grayscale appearance and color Doppler flow. FINDINGS: Right kidney measures 12.4 x 5.9 x 5.6 cm and is within normal limits without renal calculi, hydronephrosis or focal renal mass lesion identified. Cortical medullary differentiation is preserved. Left kidney measures 11.6 x 6.2 x 5.3 cm and demonstrates multiple renal cysts, largest which measures up to 2.1 cm within the inferior pole. Additionally, there are several left-sided shadowing renal calculi present, largest of which measures 7 mm within the region of the upper pole. No associated hydronephrosis or definite solid renal mass lesions identified. Mild trabeculation of the urinary bladder wall. Ureteral jets not identified. IMPRESSION: 1. Multiple nonobstructing left-sided renal calculi. No hydronephrosis. 2. Mild nonspecific trabeculation of the urinary bladder wall . 3. Unremarkable sonographic appearance of the right kidney. The above report was generated using voice recognition software. It may contain grammatical, syntax or spelling errors. Electronically signed by: Hadley Cobb M.D. 02/20/2017 6:36 AM Dictated Date/Time: 02/20/2017 6:33 AM The status of this report is Signed. Draft = Not yet reviewed or approved by Radiologist. Signed = Reviewed and approved by Radiologist. Consultations: Cardiology- Dr. Vincent Medication Reconciliation New Medications: Aspirin (Aspirin EC Low Dose) 81 Mg Ectab 81 MG PO QAM for 30 Days Metoprolol Tartrate (Lopressor) (Lopressor) 50 Mg Tab 50 MG PO Q12 for 30 Days, #60 TAB Potassium Chloride (Micro-K Ext Rel) 10 Meq Capcr 10 MEQ PO BID for 30 Days Continued Medications: Amlodipine Besylate (Norvasc) 10 Mg Tab 10 MG PO QAM, TAB Ascorbic Acid (Vitamin C) 500 Mg Tab 500 MG PO QAM Atorvastatin (Lipitor) 10 Mg Tab 10 MG PO QPM, TAB Fish Oil (Ranchita-3) 1 Ea Cap 2 CAP PO QAM, CAP Multivitamin (Multivitamin) Tab 1 TAB PO QAM, TAB Valsartan (Diovan) 320 Mg Tab 320 MG PO DAILY, TAB Discharge Exam Review of Systems: Constitutional: No fever, No chills, No sweats, No weakness, No fatigue Eyes: No worsening of vision ENT: No hearing loss Respiratory: No cough, No shortness of breath, No hemoptysis Cardiovascular: No chest pain, No edema, No palpitations Abdomen: No pain, No nausea, No vomiting, No diarrhea, No constipation Musculoskeletal: No joint pain, No muscle pain, No swelling, No calf pain Genitourinary - Male: No hematuria, No dysuria Neurologic: No weakness, No numbness/tingling Psychiatric: No depression symptoms, No anxiety Endocrine: No fatigue Integumentary: No rash, No itch, No new/changing skin lesions Physical Exam: General Appearance: no apparent distress Eyes: normal inspection, PERRL ENT: hearing grossly normal Neck: supple Respiratory/Chest: lungs clear, no respiratory distress, no accessory muscle use Cardiovascular: regular rate, rhythm Abdomen / GI: normal bowel sounds, non tender, soft Extremities: no calf tenderness, no pedal edema Neurologic/Psychiatric: alert, normal mood/affect, oriented x 3 Skin: normal color, warm/dry, no rash Hospital Course Admission H&P: The patient is a 62-year-old male who presents emergency department with a syncopal episode that occurred just prior to arrival. He reports he was watching the [employer] game and was drinking some wine tonight with friends, and when he went home he felt his heart racing and had a syncopal episode. His reports that he then had a vomiting episode, and she called the ambulance. He reports having been admitted for a rapid heart rate in the past, on 03/06/2016, which is thought secondary to low potassium, and he did have a stress test performed that time which was normal. He reports that in route to the hospital, he had another syncopal episode, and EMS reports a heart rate 240 for which he received 300 mg of IV amiodarone in route. Physical Exam Vital Signs Date Time Temp Pulse Resp B/P (MAP) Pulse Ox O2 Delivery O2 Flow Rate FiO2 02/20/17 02:14 36.7 73 16 166/82 (110) 98 Room Air 02/20/17 01:51 36.7 73 16 166/82 98 Room Air 02/20/17 01:00 67 20 142/81 92 Room Air 02/20/17 00:30 67 18 144/82 94 Room Air 02/20/17 00:00 69 18 144/78 94 Room Air 02/19/17 23:30 65 20 141/79 91 Room Air 02/19/17 23:00 67 18 135/76 93 Room Air 02/19/17 22:44 64 02/19/17 22:30 65 20 132/77 95 Room Air 02/19/17 22:00 70 21 134/90 95 Room Air 02/19/17 21:45 67 16 118/72 94 Room Air 02/19/17 21:13 66 15 116/70 96 Room Air 02/19/17 20:47 74 02/19/17 20:47 93 Room Air 02/19/17 20:47 93 Room Air 02/19/17 20:37 93 Room Air 02/19/17 20:37 36.8 82 16 93/64 93 Room Air The patient is awake, well-developed and adequately nourished, alert and oriented 3, normocephalic and atraumatic, lying in bed and in no acute distress. HEENT--PERRL, EOMI, mucous membranes and oropharynx dry. Neck--supple, no JVD or bruits, thyroid normal, trachea midline, no adenopathy. Heart--normal S1 and S2, no extra beats, no murmurs, rubs or gallops. Lungs--clear bilaterally with good air movement, no respiratory distress, no accessory muscle use. Abdomen--normal bowel sounds and soft, nontender and nondistended, no hernias or masses, no organomegaly. Extremities--no cyanosis, clubbing or edema. There are good distal pulses b/l. Dermatologic--normal skin turgor, normal color, warm and dry, no abnormal lymph nodes, no rash. Neurologic--cranial nerves II through XII grossly intact. Rheumatologic--normal range of motion. Psychiatric--normal affect. Hospital Course: Syncope, wide-complex tachycardia, atrial fibrillation- converted to NSR, hypokalemia at 2.8: - Admit to [facility] for cardiac monitoring- NSR w/ rates in 70s since admission - Trending cardiac enzymes- mild troponin elevation at 0.848 - EKG QAM and PRN for chest pain - Treated w/ IV Amiodarone 300 mg x1, IV Mag 1 gm x1 - Hypokalemia now 4.1- replaced w/ 40 mEq KCL PO supplement x2 + IVF w/ KCL supplement @ 100 ml/hr -- ?etiology of hypoK- check urine sodium, potassium, osmolality- recommend outpatient nephrology f/u -- Start 10 mEq KCL supplement BID - ECHO: EF 60-65%, no wall abnormalities, mild mitral regurgitation - Head CT unremarkable for acute findings - Start ASA 81 mg daily - Consult cardiology, appreciate recommendations- recommend transfer to [facility] for VT ablation due to concerns of L ventricular origin HTN: - Amlodipine 10 mg QAM held at admission due to hypotension- BPs improved, resume - Continue Diovan 320 mg daily - Start Metoprolol tartrate 50 mg BID for better BP control Hyperlipidemia: Continue Atorvastatin 10 mg QPM, fish oil JEFFREY w/ rodeo clown at 1.59 at admission, now 0.73- RESOLVED: - Treated w/ IVF x3 bags - Renal US unremarkable DVT prophylaxis: Heparin SQ TID Code Status: LEVEL I, FULL Dispo: Transfer to [facility] Total Time Spent: Greater than 30 minutes This includes examination of the patient, discharge planning, medication reconciliation, and communication with other providers. Discharge Instructions Please refer to the electronic Patient Visit Report (Discharge Instructions) for additional information. Follow-Up Please follow-up with your PCP within 5-7 days after discharge from [facility] Please follow-up with Nephrology within 1-2 weeks after discharge from [facility] for continued hypokalemia workup Please follow-up/keep all of your subspecialty appointments Other follow-ups as per [facility] provider Additional Copies To Hever Myers M.D. Reviewed: Pt Seen/Exam by Me History Physician Signwriter Supervision Note: I interviewed and examined the patient. Discussed with MAYA Velasquez and agree with findings and plan as documented in the note. Any exceptions or clarifications are listed here: Pt was admitted for sustained ventricular tachycardia and syncope. First episode occurred at home with heart palpitations, followed by syncope. He then had another occurrence of the same in the EMS and was given amiodarone and broke to A-fib briefly, then to a sinus rhythm. He never had any chest pain. He normally is quite active with biking and exercising, running. He had a previous admission in 03/2016 for palpitations, hypokalemia, chest pain, and had a normal stress ECHO at that time, but no arrhythmias. He had no further arrhythmias on telemetry here, but was quite hypertensive. He was seen by Cardiology/EP and thought was that he has VT of LV origin. May need a LV ablation. He was started on metoprolol tartrate 50mg po bid and will be transferred to [facility] for evaluation for VT ablation. As for his hypokalemia, this is a recurrence of that with no etiology. The first time it happened in 03/2016, he was on HCTZ which was discontinued at that time. Currently no explanation. Could be RTA. Ordered urine lytes but not completed at the time of this summary. Should f/u with PCP and/or Nephrology as an outpt and have his BMP checked routinely. Vitals reviewed Tele with NSR, frequent couplets RRR no gr CTAB, no wcr Abd +BS soft NT ND Ext no edema, no calf tenderness Documented By: Bernie Aviles
--- NOTE | 2017-02-20 15:31 | Cardiology Consultation ---
Cardiology Consultation Date of Consultation: Feb 20, 2017. Requesting Physician: Dr. Martinez Reason for Consultation: WCT Pt evaluation today including: conversation w/ patient, conversation w/ family , physical exam, lab review, review of studies, review of inpatient medication list, conversation w/ attending History of Present Illness This is a very pleasant 62-year-old gentleman who has a history of lightheadedness and presyncope and momentary syncope in March 2016, that occurred out of hospital and no recordings of his rhythm were made. On arrival in the emergency room on that occasion he felt well, he underwent stress testing which was negative for ischemia and he had a normal echocardiogram and a normal electrocardiogram and no enzyme abnormality. He was found to be hypokalemic. He was discharged for outpatient follow-up, clinically he did well until having an episode of severe lightheadedness, presyncope and several episodes of syncope in close succession at around 7:00 PM on 02/20/2017. He was watching a football game, he went home, the symptoms worsened and the ambulance was called. He then was brought into the emergency room. In route he was noted to be in a wide complex tachycardia for which he received amiodarone, 12-lead was done as noted below. He then converted from the wide complex tachycardia to a rate controlled atrial fibrillation and after about 25 minutes after arrival in the emergency room to sinus rhythm. Since then he has remained in sinus rhythm with occasional isolated PVCs. An echocardiogram today showed normal left ventricular function without wall motion abnormalities, he had slight elevation of troponin on his second set ( his first was negative), and the third set was down significantly suggesting that this was demand ischemia. There were no acute changes on his electrocardiogram and no evidence of preexcitation. His potassium has been corrected. At the time of my evaluation he was feeling well and had no complaints. He did not have CPR or electric shock. Past Medical/Surgical History (1) HTN (hypertension) (2) Palpitations Social History Smoking Status: Never Smoker History of Alcohol Use: Yes (Glass a wine with supper. Not every night. ) Review of Systems Constitutional: No fever, No weight loss, No weakness Respiratory: No cough, No wheezing, No shortness of breath, No dyspnea on exertion Cardiac: + see HPI, + problem reported ([place], pre-syncope and syncope) , No chest pain, No orthopnea, No PND, No edema, No palpitations Abdomen: No pain, No nausea, No vomiting, No diarrhea, No GI bleeding Male : No urinary frequency, No nocturia more than once/night, No slowing stream, No sexual dysfunction Neurologic: No paralysis, No weakness, No numbness/tingling, No balance problems Heme: No abnormal bleeding/bruising, No clotting problems Endo: No fatigue Skin: No problem reported All Other Systems: Reviewed and Negative Allergies Coded Allergies: Levofloxacin (Verified Allergy, Unknown, DIFFICULTY WALKING, 09/17/15) Triamcinolone (Verified Allergy, Unknown, BLEEDING, 09/17/15) Medications Current Inpatient Medications Medications (Trade) Dose Ordered Sig/Giles Route Start Time Stop Time Status Last Admin Dose Admin Acetaminophen (Tylenol Tab) 650 mg Q4H PRN PO 02/20/17 00:30 03/22/17 00:29 Ascorbic Acid (Vitamin C Tab) 500 mg QAM PO 02/20/17 09:00 03/22/17 08:59 02/20/17 08:20 500 MG Atorvastatin Calcium (Lipitor Tab) 10 mg QPM PO 02/20/17 21:00 03/22/17 20:59 Multivitamins (Multivitamin Tab) 1 tab QAM PO 02/20/17 09:00 03/22/17 08:59 02/20/17 08:22 1 TAB Valsartan (Diovan Tab) 320 mg DAILY PO 02/20/17 09:00 03/22/17 08:59 02/20/17 08:21 320 MG Aspirin (Ecotrin Tab) 81 mg QAM PO 02/20/17 09:00 03/22/17 08:59 02/20/17 08:22 81 MG Heparin Sodium (Porcine) (Heparin Sq 5000 Unit/0.5ml) 5,000 unit Q8 SQ 02/20/17 14:00 03/22/17 13:59 Amlodipine Besylate (Norvasc Tab) 10 mg QAM PO 02/21/17 09:00 03/23/17 08:59 Fish Oil ([place]-3 (Purified Fish Oil) Cap) 1 gm QAM PO 02/21/17 09:00 03/23/17 08:59 Potassium Chloride (Klor-Con M10) 10 meq BID PO 02/20/17 21:00 03/22/17 20:59 Physical Exam Vital Signs Past 12 Hours Date Time Temp Pulse Resp B/P (MAP) Pulse Ox O2 Delivery O2 Flow Rate FiO2 02/20/17 13:07 64 18 171/90 (117) 94 Room Air 02/20/17 12:00 94 Room Air 02/20/17 11:16 37.3 64 18 172/88 (116) 94 Room Air 02/20/17 08:00 92 Room Air 02/20/17 07:17 36.9 70 18 154/78 (103) 92 Room Air 02/20/17 06:28 162/83 (109) 02/20/17 04:00 Room Air Constitutional: General Apperance: heathly-appearing Level of Distress: NAD Psychiatric: Mental Status: active & alert Head: normocephalic Eyes: EOM: EOMI ENMT: normal ENT inspection, hearing grossly normal Neck: supple, no masses Lungs: Respiratory effort: no dyspnea, good air movement Auscultation: breath sounds normal, no wheezing Cardiovascular: Heart Auscultation: RRR, no murmurs, no rubs, no gallops Peripheral Pulses: Bruits: none appreciated Abdomen: Bowel Sounds: normal Inspection & Palpation: soft, no tenderness, guarding & rebound, no masses Musculoskeletal: normal strength (5/5 throughout) Extremities: no edema Neurologic: Cranial Nerves: grossly intact Sensation: grossly intact Data Laboratory Results: Last 24 Hours Test 02/19/17 20:46 02/19/17 20:51 02/19/17 20:54 02/20/17 07:42 White Blood Count 9.16 K/uL 7.73 K/uL Red Blood Count 4.42 M/uL 4.22 M/uL Hemoglobin 13.8 g/dL 13.3 g/dL Hematocrit 40.8 % 37.9 % Mean Corpuscular Volume 92.3 fL 89.8 fL Mean Corpuscular Hemoglobin 31.2 pg 31.5 pg Mean Corpuscular Hemoglobin Concent 33.8 g/dl 35.1 g/dl Platelet Count 200 K/uL 159 K/uL Mean Platelet Volume 9.9 fL 9.5 fL Neutrophils (%) (Auto) 52.8 % 72.2 % Lymphocytes (%) (Auto) 36.1 % 16.7 % Monocytes (%) (Auto) 6.7 % 10.3 % Eosinophils (%) (Auto) 3.6 % 0.6 % Basophils (%) (Auto) 0.4 % 0.1 % Neutrophils # (Auto) 4.83 K/uL 5.57 K/uL Lymphocytes # (Auto) 3.31 K/uL 1.29 K/uL Monocytes # (Auto) 0.61 K/uL 0.80 K/uL Eosinophils # (Auto) 0.33 K/uL 0.05 K/uL Basophils # (Auto) 0.04 K/uL 0.01 K/uL RDW Standard Deviation 43.7 fL 42.6 fL RDW Coefficient of Variation 12.9 % 13.1 % Immature Granulocyte % (Auto) 0.4 % 0.1 % Immature Granulocyte # (Auto) 0.04 K/uL 0.01 K/uL Prothrombin Time 10.4 SECONDS Prothromb Time International Ratio 1.0 Activated Partial Thromboplast Time 21.6 SECONDS Partial Thromboplastin Ratio 0.8 Sodium Level 139 mmol/L 141 mmol/L Potassium Level 2.8 mmol/L 4.1 mmol/L Chloride Level 103 mmol/L 110 mmol/L Carbon Dioxide Level 21 mmol/L 23 mmol/L Anion Gap 15.0 mmol/L 23.0 mmol/L 9.0 mmol/L Blood Urea Nitrogen 18 mg/dl 12 mg/dl Creatinine 1.56 mg/dl 0.73 mg/dl Est Creatinine Clear Calc Drug Dose 52.4 ml/min 111.9 ml/min Estimated GFR () 54.4 115.2 Estimated GFR (Non- 46.9 99.4 BUN/Creatinine Ratio 11.8 16.1 Random Glucose 301 mg/dl 92 mg/dl Estimated Average Glucose 100 mg/dl Hemoglobin A1c 5.1 % Calcium Level 8.4 mg/dl 8.5 mg/dl Phosphorus Level 5.0 mg/dl Magnesium Level 2.5 mg/dl 2.5 mg/dl Total Bilirubin 0.8 mg/dl 0.8 mg/dl Direct Bilirubin 0.2 mg/dl 0.2 mg/dl Aspartate Amino Transf (AST/SGOT) 203 U/L 99 U/L Alanine Aminotransferase (ALT/SGPT) 173 U/L 174 U/L Alkaline Phosphatase 102 U/L 91 U/L Total Creatine Kinase 152 U/L Creatine Kinase MB 3.1 ng/ml Creatine Kinase MB Ratio 2.0 Troponin I < 0.015 ng/ml 0.848 ng/ml Total Protein 6.9 gm/dl 6.6 gm/dl Albumin 3.7 gm/dl 3.5 gm/dl Lipase 219 U/L Beta-Hydroxybutyric Acid 1.44 mg/dL Ethyl Alcohol mg/dL < 3.0 mg/dl Bedside D-Dimer 431 ng/mlFEU Bedside Hemoglobin 13.3 g/dl Bedside Hematocrit 39 % Bedside Sodium 141 mEq/L Bedside Potassium 2.8 mEq/L Bedside Chloride 102 mEq/L Bedside Total CO2 20 mEq/l Bedside Blood Urea Nitrogen 18 mg/dl Bedside Creatinine 1.3 mg/dl Bedside Glucose (other) 301 mg/dl Bedside Ionized Calcium (Kim) 1.15 mmol/l Test 02/20/17 14:15 Imaging: NAD EKG: During WCT 12 lead from ambulance suggests a VT with LV origin. On arrival in our ER he was in AF with a HR of 71 BPM, no pre-excitation. Telemetry reviewed: AF at a controlled HR on admission, about 25 min after arrival conversion to SR, remains in SR Echo: Normal LV function with no wall motion abnormalities Assessment & Plan 1. WCT: His tachycardia is suspicious for ventricular tachycardia, possibly left ventricular. The rate is just under 300 bpm. It is consistent with his symptoms. Although hypokalemia may have something to do with it seems unlikely at this is only due to hypokalemia with a potassium of 2.8. It may have responded to amiodarone, but he only got a dose in the ambulance. It seems that he has only rare episodes, at least that he is aware of, the only other time he was aware of it was in March 2016. It seems unlikely to be ischemic, his enzymes are slightly elevated but in the descending pattern and probably demand ischemia. I think the most appropriate course of action is to transfer him to a tertiary care center for definitive evaluation and treatment. I discussed all this with him and his and all are in agreement. I discussed it also with the cardiology department at [facility] and we will arrange transport tonight.
[2017-02-20] MEDS ORDERED: ATORVASTATIN 10 MG TAB PO SCH (21:00)
[2017-02-20] MEDS ORDERED: POTASSIUM CHLORIDE 10 MEQ TABCR PO SCH (21:00)
[2017-02-21] MEDS ORDERED: METOPROLOL TARTRATE 50 MG TAB PO SCH (07:00)
[2017-02-21] MEDS ORDERED: AMLODIPINE BESYLATE 5 MG TAB PO SCH (09:00)
[2017-02-21] MEDS ORDERED: OMEGA-3 (PURIFIED FISH OIL) 1 GM CAP PO SCH (09:00)
== END 2017-02-20 23:15 | disposition short-term general hospital (02) | DRG 309 ==
LOC: EDBD 20:31 → C.EDA 20:36 → C.MED 02-20 00:28 → ENRESERV 02-20 00:57 → C.2T 02-20 20:23
PROVIDERS: ADMIT Hospitalist; ATTEND Family Medicine
DX: I47.2 Ventricular tachycardia (principal); I24.8 Other forms of acute ischemic heart disease; N17.9 Acute kidney failure, unspecified; I48.91 Unspecified atrial fibrillation; E87.6 Hypokalemia; I10 Essential (primary) hypertension; E78.5 Hyperlipidemia, unspecified

== ENCOUNTER → 2017-03-10 | Outpatient (CLI) | payer OTHER ==
[~2017-03-10] MED LIST changes: -AMLO-114 PO; +AMLO10TA2 PO; +ASPI-320 PO; +METO50TA16 PO; +POTA10CA28 PO
[2017-03-10 17:42] LABS: ALBUMIN 3.9 gm/dl (3.4-5.0); ALT/SGPT 33 U/L (12-78); AST/SGOT 10 U/L (15-37); BLOOD UREA NITROGEN 15 mg/dl (7-18); CALCIUM 9.1 mg/dl (8.5-10.1); CARBON DIOXIDE 29 mmol/L (21-32); GLUCOSE 94 mg/dl (70-99); SODIUM 139 mmol/L (136-145)
[2017-03-10 17:47] LABS: ALKALINE PHOSPHATASE 78 U/L (45-117); CHOLESTEROL 121 mg/dl (0-200); LDL CHOLESTEROL CALCULATED 57 mg/dl; TOTAL PROTEIN 7.4 gm/dl (6.4-8.2)
== END | disposition home or self-care (01) ==
LOC: C.LABBFT 12:26
PROVIDERS: ATTEND Physician Assistant Medical
DX: R73.9 Hyperglycemia, unspecified (principal); R97.20 Elevated prostate specific antigen [PSA]

== ENCOUNTER → 2017-04-10 | Outpatient (CLI) | payer OTHER ==
[~2017-04-10] MED LIST changes: +ASPEC81 PO; -ASPI-320 PO
[2017-04-10 14:33] LABS: POTASSIUM RANDOM URINE 15.8 mEq/L
[2017-04-10 14:42] LABS: ALKALINE PHOSPHATASE 80 U/L (45-117); ALT/SGPT 32 U/L (12-78); AST/SGOT 15 U/L (15-37); BLOOD UREA NITROGEN 16 mg/dl (7-18); CALCIUM 9.2 mg/dl (8.5-10.1); CARBON DIOXIDE 28 mmol/L (21-32); CREATININE 1.01 mg/dl (0.60-1.40); GLUCOSE 100 mg/dl (70-99); POTASSIUM 3.5 mmol/L (3.5-5.1); SODIUM 139 mmol/L (136-145); TOTAL PROTEIN 7.6 gm/dl (6.4-8.2)
[2017-04-10 14:53] LABS: PHOSPHORUS 2.9 mg/dl (2.5-4.9)
== END | disposition home or self-care (01) ==
LOC: C.LAB1850 12:11
PROVIDERS: ATTEND Internal Medicine Nephrology
DX: E87.6 Hypokalemia (principal)

== ENCOUNTER → 2017-06-15 | Outpatient (CLI) | payer OTHER ==
[~2017-06-15] MED LIST changes: -ASPEC81 PO; +ASPI-320 PO
[2017-06-15 16:38] LABS: ALBUMIN 3.5 gm/dl (3.4-5.0); BLOOD UREA NITROGEN 14 mg/dl (7-18); CALCIUM 9.2 mg/dl (8.5-10.1); CARBON DIOXIDE 31 mmol/L (21-32); CREATININE 0.96 mg/dl (0.60-1.40); GLUCOSE 90 mg/dl (70-99); PHOSPHORUS 2.7 mg/dl (2.5-4.9); POTASSIUM 4.3 mmol/L (3.5-5.1); SODIUM 139 mmol/L (136-145)
== END | disposition home or self-care (01) ==
LOC: C.LABBFT 11:49
PROVIDERS: ATTEND Internal Medicine Nephrology
DX: E87.6 Hypokalemia (principal)

== ENCOUNTER 2017-10-18 18:46 | Emergency (ER) | payer OTHER ==
[~2017-10-18] VITALS: Ht 170.2 cm; Wt 84.0 kg
[2017-10-18 18:51] VITALS: TEMP 36.8; Ht 170.2 cm; Wt 84.0 kg
--- NOTE | 2017-10-18 20:16 | DIAGNOSTIC IMAGING REPORT ---
L ELBOW MIN 3 VIEWS ROUTINE CLINICAL HISTORY: Left elbow pain/ecchymosis. COMPARISON: None FINDINGS: Alignment of the left elbow is anatomic. No fracture or osseous lesion is evident. There is no evidence for a left elbow joint effusion. Marked soft tissue swelling overlying the olecranon is noted. There is minimal osteophytosis of the ulnotrochlear articulation. IMPRESSION: 1. No acute fracture or joint effusion of the left elbow. 2. Marked soft tissue swelling overlying the olecranon which is nonspecific but may reflect olecranon bursitis or soft tissue contusion. Electronically signed by: Aamir Ponce M.D. 10/18/2017 8:14 PM Dictated Date/Time: 10/18/2017 8:13 PM
[2017-10-18 20:47] VITALS: BP 167/72; PULSE 52; O2SAT 95
--- NOTE | 2017-10-20 00:46 | EMERGENCY ROOM VISIT NOTE ---
ED Visit Note First contact with patient: 19:23 Chief Complaint: Left elbow was swollen. History of Present Illness: Mr. Melara is a 62-year-old white male who ambulates into the ED son complaining of left elbow swelling. Patient reports approximately 1 hour ago he was driving and noticed that his left elbow was starting to swell. He reports he has not had any precipitating trauma and has had no previous significant injuries or surgeries to the elbow. Besides the swelling he has no other symptoms and denies pain, fevers, chills, skin eruptions, skin color changes, left upper extremity weakness/numbness/ tingling, decreased appetite, nausea, vomiting, shortness of breath. Review of Systems: As noted above in history of present illness. 8 body systems were reviewed and found to be negative as noted above. Past Medical History: Hypertension, ventricular tachycardia, defibrillator implantation. Current Medications: Lopressor, aspirin, potassium, Lipitor, multivitamins, Norvasc, Diovan. Allergies to Medications: Triamcinolone, levothyroxine. Social History: Patient is currently employed; he feels safe in his home environment; he denies tobacco use admits to alcohol use. Physical Examination: Vital Signs: Date Time Temp Pulse Resp B/P (MAP) Pulse Ox O2 Delivery O2 Flow Rate FiO2 10/18/17 20:47 52 18 167/72 95 10/18/17 18:51 36.8 46 18 189/95 95 Room Air GENERAL: 62-year-old male in no acute distress, nontoxic-appearing, afebrile and hemodynamically stable. NEUROLOGICAL: Awake, alert and oriented to person, place and time. Answering questions appropriately and following commands. SKIN: Warm, dry and pink. No soft tissue eruptions or trauma noted. LEFT UPPER EXTREMITY: No gross bony deformity. No tenderness over the shoulder , upper arm, elbow, forearm, wrist or hand. Over the olecranon process patient has what appears to be a non-traumatic bursitis of the olecranon bursa. There is no soft tissue injuries noted. No noted insect bites. The bursa is not erythematous. The bursa is nontender. He has full range of motion in all movements of the shoulder, elbow, forearm and wrist. All distal neurovascular statuses are intact and equal bilaterally. ED Course: Patient is assessed as noted above. Patient's medication list was reviewed. Left Elbow X-Rays: Were read by myself and the radiologist and shows no acute fractures or dislocations. Marked soft tissue swelling over the olecranon process of questionable etiology. Patient was placed in an Shaan bandage for compression. Patient was educated about today's findings and instructed on his treatment plan ; he verbalizes understanding and agreement with this plan. Clinical Impression: Nontraumatic olecranon bursitis. Decision-Making: Initially my differential diagnosis I considered bursitis, elbow fracture, elbow dislocation, skin infection, insect bite and other causes. Disposition: Patient discharged home in stable condition accompanied by his ; prior to departure he was reassessed and subjectively reported he was still pain free. Plan: Patient was encouraged you 600 mg of ibuprofen every 6 hours as needed for pain/ anti-inflammatory effect; patient was encouraged to take with food and stop for stomach pain or indigestion. Patient was encouraged to use the Shaan bandage for compression for the next 4-5 days or until resolution of swelling. Patient was educated on signs of infection. Patient was encouraged to follow-up with his PCP for recheck if no better in 4- 5 days. Patient was encouraged return the ED for any signs of infection, worsening/ uncontrolled pain or any new/concerning symptoms.
== END 2017-10-18 20:48 | disposition home or self-care (01) ==
LOC: C.EDB 18:47 → C.EDD 20:48
DX: M70.22 Olecranon bursitis, left elbow (principal); Z95.810 Presence of automatic (implantable) cardiac defibrillator

== ENCOUNTER 2018-05-04 01:01 | Inpatient (IN) ==
[2018-05-04] MEDS ORDERED: ACETAMINOPHEN 1,000 MG/100 ML VIAL IV STA (01:17)
[2018-05-04] MEDS ORDERED: ONDANSETRON INJ 2 MG/ML 2 ML VIAL IV STA (01:17)
[2018-05-04] MEDS ORDERED: MoRPHine SULFATE 10 MG/ML CARP/VIAL IV STA (01:17)
[2018-05-04] MEDS ORDERED: SODIUM CHLORIDE 0.9% 1000ML 1,000 ML IV SCH (01:30)
[2018-05-04 01:34] LABS: Basophils # (auto) 0.01 K/uL (0-0.2); Basophils % (auto) 0.1 %; Eosinophils # (auto) 0.28 K/uL (0-0.5); Eosinophils % (auto) 3.8 %; Hematocrit (blood only) 41.9 % (42-52); Hemoglobin 14.2 g/dL (14.0-18.0); Immature Granulocytes # (auto) 0.01 K/uL (0.00-0.02); Immature Granulocytes % (auto) 0.1 %; Lymphocytes % (auto) 6.8 %; Mean Corpuscular Hgb Conc 33.9 g/dL (32-36); Mean Corpuscular Volume 90.3 fL (80-100); Mean Platelet Volume 9.6 fL (7.4-10.4); Monocytes # (auto) 0.43 K/uL (0.11-0.59); Monocytes % (auto) 5.8 %; Neutrophils # (auto) 6.14 K/uL (1.4-6.5); Neutrophils % (auto) 83.4 %; Platelet Count 134 K/uL (130-400); RDW Coefficient of Variation 12.8 % (11.5-14.5); RDW Standard Deviation 42.4 fL (36.4-46.3); Red Blood Count 4.64 M/uL (4.7-6.1); White Blood Count 7.37 K/uL (4.8-10.8)
[2018-05-04 01:38] LABS: Appearance Urine Clear (Clear); Bacteria Urine Automated Negative (Negative); Bilirubin Urine Negative (Negative); Blood Urine 1+ (Negative); Color Urine Yellow; Glucose Urine UA Negative (Negative); Ketones Urine 1+ (Negative); Leukocyte Esterase Urine Trace (Negative); Nitrite Urine Negative (Negative); Protein Urine Negative (Negative); Specific Gravity Urine 1.022 (1.000-1.030); Urobilinogen Urine Negative (Negative)
[2018-05-04 01:52] LABS: Albumin Level 3.8 gm/dl (3.4-5.0); BUN Creatinine Ratio 13.4 (10-20); Calcium 8.1 mg/dl (8.5-10.1); Creatinine Clr Calc Pharmacy 56.3 ml/min; Est GFR (Non-African American) 52.6; Potassium 4.1 mmol/L (3.5-5.1)
[2018-05-04 01:55] LABS: Albumin Globulin Ratio 1.1 (0.9-2); Bilirubin,Total 0.9 mg/dl (0.2-1); Globulin 3.5 gm/dl (2.5-4.0); Total Protein 7.3 gm/dl (6.4-8.2)
[2018-05-04] MEDS ORDERED: cefTRIAXone SODIUM 1,000 MG/50 ML BAG IV STA (02:47)
--- NOTE | 2018-05-04 04:00 | Emergency Department Note ---
History of Present Illness General Chief complaint: Abdominal Pain Stated complaint: abd pain,bladder area, fever Time Seen by Provider: 05/04/18 01:07 History of Present Illness Maximum Pain Intensity: 8 This is a 63-year-old male presenting to the emergency department for evaluation of lower abdominal pain and fever. The patient was seen and evaluated 4 days ago with left flank pain and was found to have a 4 mm ureteral calculi at that time. The patient states that he is on Bactrim from his primary care physician as his initial symptoms were felt to be related to a urine infection. The patient is still taking the Bactrim. Tonight, approximately 8 hours prior to arrival, the patient noticed a fever of 101 F. He has been taking oxycodone and Flomax for his kidney stone. The patient was told to return to the ER if he developed a fever, and now presents for further evaluation. He rates his overall discomfort in 10/13. He continues to have some dull left flank pain and urinary hesitancy. Home Medications Home Medications Medication Instructions Recorded Confirmed Type amlodipine 5 mg PO QAM 04/29/18 05/04/18 History ascorbic acid (vitamin C) [Vitamin 500 mg PO DAILY 04/29/18 05/04/18 History C] aspirin 81 mg PO DAILY 04/29/18 05/04/18 History atorvastatin 10 mg PO QPM 04/29/18 05/04/18 History cholecalciferol (vitamin D3) 1,000 units PO DAILY 04/29/18 05/04/18 History [Vitamin D3] metoprolol succinate 100 mg PO QAM 04/29/18 05/04/18 History naproxen 250 mg PO BID #14 tab 04/29/18 05/04/18 Rx ondansetron 4 mg PO Q6H PRN #10 tab 04/29/18 05/04/18 Rx oxycodone 5 mg PO Q6H PRN #12 tab 04/29/18 05/04/18 Rx sulfamethoxazole-trimethoprim 1 tab PO BID 04/29/18 05/04/18 History tamsulosin 0.4 mg PO DAILY #20 cap 04/29/18 05/04/18 Rx valsartan 320 mg PO DAILY 04/29/18 05/04/18 History vit C-s.qdnmlx-niisvh-wfmbt sd 1 cap PO DAILY 04/29/18 05/04/18 History [[place]] Allergies Allergy/AdvReac Type Severity Reaction Status Date / Time levofloxacin Allergy Unknown DIFFICULTY Verified 05/04/18 01:35 WALKING triamcinolone Allergy Unknown BLEEDING Verified 05/04/18 01:35 Past Med/Surg History Medical History HTN (hypertension) (Chronic) ACS (acute coronary syndrome) Atrial fibrillation with rapid ventricular response Olecranon bursitis, left elbow (Acute) Syncope and collapse Social History Feels Safe at Home: Yes Smoking Status: Never smoker Review of Systems A total of 10 systems reviewed and were otherwise negative Physical Exam Vital Signs Vital Signs - 24 hr 05/04/18 01:04 05/04/18 02:26 05/04/18 04:27 Temperature 38.4 C H 37.3 C 37.0 C Temperature Source Oral Oral Oral Sepsis Recent Fever Within 48 Hours Yes Sepsis Action Taken by Nursing No Action Required Pulse Rate 73 Pulse Rate [Left Radial] 80 60 Respiratory Rate 18 18 18 Respiratory Effort / Characteristics Non-Labored Non-Labored Non-Labored Respiratory Depth Normal Normal Normal Blood Pressure 186/90 H Blood Pressure [Left Arm] 134/86 112/58 L Blood Pressure Mean 122 Blood Pressure Mean [Left Arm] 102 76 Pulse Oximetry 95 94 94 Oxygen Delivery Method Room Air Room Air Room Air VITALS: Vitals are noted on the nurse's note and reviewed by myself. Vital signs with noted fever GENERAL: Well-developed, well-nourished, white male who is mildly uncomfortable but not toxic. HEAD: Normocephalic atraumatic. EARS: External ear normal. External auditory canals clear, tympanic membranes pearly corbett without erythema or effusion bilaterally. NOSE: Patent, turbinates without inflammation or discharge. NECK: Supple without nuchal rigidity. No lymphadenopathy. No thyromegaly. Cervical spine is nontender. HEART: Regular rate and rhythm without murmurs gallops or rubs. LUNGS: Clear to auscultation bilaterally without wheezes, rales or rhonchi. No retractions or accessory muscle use. ABDOMEN: Positive normal bowel sounds x 4. Soft, nontender, without masses or organomegaly. No guarding or rebound tenderness. No CVA tenderness. MUSCULOSKELETAL: No muscle atrophy, erythema, or edema noted. Full range of motion in all extremities. NEURO: Patient was alert and oriented to person place and time. CN II through XII grossly intact. SKIN: The skin was without rashes, erythema, edema, or bruising. Capillary refill less than 2 seconds. Course Administered Medications Discontinued Medications Acetaminophen (Ofirmev) 1,000 mg in 100 mls @ 400 mls/hr IV NOW STA Stop: 05/04/18 01:31 Last Infusion: 05/04/18 02:10 Dose: 0 mls/hr Documented by: [id number] Admin: 05/04/18 01:28 Dose: 400 mls/hr Documented by: [id number] Sodium Chloride (Nss 1000ml) 1,000 mls @ 999 mls/hr IV .Q1H1M TOBY Stop: 05/04/18 02:30 Last Infusion: 05/04/18 02:26 Dose: 0 mls/hr Documented by: [id number] Admin: 05/04/18 01:28 Dose: 999 mls/hr Documented by: [id number] Ceftriaxone Sodium (Rocephin) 1,000 mg in 50 mls @ 100 mls/hr IV NOW STA Stop: 05/04/18 03:16 Last Infusion: 05/04/18 04:27 Dose: 0 mls/hr Documented by: [id number] Admin: 05/04/18 02:58 Dose: 100 mls/hr Documented by: [id number] Morphine Sulfate (Morphine Sulfate) 6 mg IV NOW STA Stop: 05/04/18 01:18 Last Admin: 05/04/18 01:27 Dose: 6 mg Documented by: [id number] Ondansetron HCl (Zofran) 4 mg IV NOW STA Stop: 05/04/18 01:18 Last Admin: 05/04/18 01:27 Dose: 4 mg Documented by: [id number] Medical Decision Making Differential Diagnosis Differential diagnosis: Etiologies such as ureteral calculi, sepsis, biliary colic, cholecystitis, hepatitis, pancreatitis, cardiac disease, pancreatitis, gastritis, peptic ulcer disease, appendicitis, cystitis, diverticulitis, mesenteric ischemia, inflammatory bowel disease, ileus, bowel obstruction, testicular/adnexal torsion, aortic pathology, shingles, as well as others were considered Laboratory Data Result diagrams: 05/04/18 01:20 05/04/18 01:20 Lab Results 05/04/18 05/04/18 05/04/18 Range/Units 01:20 01:20 01:20 WBC 7.37 (4.8-10.8) K/uL RBC 4.64 L (4.7-6.1) M/uL Hgb 14.2 (14.0-18.0) g/dL Hct 41.9 L (42-52) % MCV 90.3 (80-100) fL MCH 30.6 (25-34) pg MCHC 33.9 (32-36) g/dL RDW Std Deviation 42.4 (36.4-46.3) fL RDW Coeff of K[place] 12.8 (11.5-14.5) % Plt Count 134 (130-400) K/uL MPV 9.6 (7.4-10.4) fL Immature Gran % (Auto) 0.1 % Neut % (Auto) 83.4 % Lymph % (Auto) 6.8 % [place] % (Auto) 5.8 % Eos % (Auto) 3.8 % Baso % (Auto) 0.1 % Immature Gran # (Auto) 0.01 (0.00-0.02) K/uL Neut # (Auto) 6.14 (1.4-6.5) K/uL Lymph # (Auto) 0.50 L (1.2-3.4) K/uL [place] # (Auto) 0.43 (0.11-0.59) K/uL Eos # (Auto) 0.28 (0-0.5) K/uL Baso # (Auto) 0.01 (0-0.2) K/uL Sodium 135 L (136-145) mmol/L Potassium 4.1 (3.5-5.1) mmol/L Chloride 103 (98-107) mmol/L Carbon Dioxide 26 (21-32) mmol/L Anion Gap 6.0 (3-11) BUN 19 H (7-18) mg/dl Creatinine 1.41 H (0.6-1.4) mg/dl Est Cr Clr Drug Dosing 56.3 ml/min Est GFR ( Amer) 61.0 Est GFR (Non-Af Amer) 52.6 BUN/Creatinine Ratio 13.4 (10-20) Glucose 113 H (70-99) mg/dl Lactate (0.4-2.0) mmol/L Calcium 8.1 L (8.5-10.1) mg/dl Total Bilirubin 0.9 (0.2-1) mg/dl AST 27 (15-37) U/L ALT 36 (12-78) U/L Alkaline Phosphatase 96 (45-117) U/L Total Protein 7.3 (6.4-8.2) gm/dl Albumin 3.8 (3.4-5.0) gm/dl Globulin 3.5 (2.5-4.0) gm/dl Albumin/Globulin Ratio 1.1 (0.9-2) Lipase 90 (73-393) U/L Procalcitonin 0.09 (0-0.5) ng/ml Urine Color Urine Appearance (Clear) Urine pH (4.5-7.5) Ur Specific [place] (1.000-1.030) Urine Protein (Negative) Urine Glucose (UA) (Negative) Urine Ketones (Negative) Urine Blood (Negative) Urine Nitrite (Negative) Urine Bilirubin (Negative) Urine Urobilinogen (Negative) Ur Leukocyte Esterase (Negative) Urine WBC (Auto) (0-5) /hpf Urine RBC (Auto) (0-4) /hpf U Hyaline Cast (Auto) (0-5) /lpf U Epithel Cells (Auto) (0-5) /lpf Urine Bacteria (Auto) (Negative) Influenza Type A Ag (Neg) Influenza Type B Ag (Neg) 05/04/18 05/04/18 05/04/18 Range/Units 01:20 01:20 02:30 WBC (4.8-10.8) K/uL RBC (4.7-6.1) M/uL Hgb (14.0-18.0) g/dL Hct (42-52) % MCV (80-100) fL MCH (25-34) pg MCHC (32-36) g/dL RDW Std Deviation (36.4-46.3) fL RDW Coeff of Kely (11.5-14.5) % Plt Count (130-400) K/uL MPV (7.4-10.4) fL Immature Gran % (Auto) % Neut % (Auto) % Lymph % (Auto) % [place] % (Auto) % Eos % (Auto) % Baso % (Auto) % Immature Gran # (Auto) (0.00-0.02) K/uL Neut # (Auto) (1.4-6.5) K/uL Lymph # (Auto) (1.2-3.4) K/uL [place] # (Auto) (0.11-0.59) K/uL Eos # (Auto) (0-0.5) K/uL Baso # (Auto) (0-0.2) K/uL Sodium (136-145) mmol/L Potassium (3.5-5.1) mmol/L Chloride (98-107) mmol/L Carbon Dioxide (21-32) mmol/L Anion Gap (3-11) BUN (7-18) mg/dl Creatinine (0.6-1.4) mg/dl Est Cr Clr Drug Dosing ml/min Est GFR ( Amer) Est GFR (Non-Af Amer) BUN/Creatinine Ratio (10-20) Glucose (70-99) mg/dl Lactate 1.0 (0.4-2.0) mmol/L Calcium (8.5-10.1) mg/dl Total Bilirubin (0.2-1) mg/dl AST (15-37) U/L ALT (12-78) U/L Alkaline Phosphatase (45-117) U/L Total Protein (6.4-8.2) gm/dl Albumin (3.4-5.0) gm/dl Globulin (2.5-4.0) gm/dl Albumin/Globulin Ratio (0.9-2) Lipase (73-393) U/L Procalcitonin (0-0.5) ng/ml Urine Color Yellow Urine Appearance Clear (Clear) Urine pH 6.0 (4.5-7.5) Ur Specific [place] 1.022 (1.000-1.030) Urine Protein Negative (Negative) Urine Glucose (UA) Negative (Negative) Urine Ketones 1+ H (Negative) Urine Blood 1+ H (Negative) Urine Nitrite Negative (Negative) Urine Bilirubin Negative (Negative) Urine Urobilinogen Negative (Negative) Ur Leukocyte Esterase Trace H (Negative) Urine WBC (Auto) 5-10 H (0-5) /hpf Urine RBC (Auto) 5-10 H (0-4) /hpf U Hyaline Cast (Auto) 5-10 H (0-5) /lpf U Epithel Cells (Auto) 10-20 H (0-5) /lpf Urine Bacteria (Auto) Negative (Negative) Influenza Type A Ag Neg for Influ A (Neg) Influenza Type B Ag Neg for Influ B (Neg) Imaging Data Radiologist's Impression: Preliminary Findings Only See Final Report For Complete Findings US RENAL: Comparison: US dated 02/20/2017. Mild left hydronephrosis with evidence of calculus within left proximal ureter. Calculus appears to measure approximately 1 cm in length and is located approximately 2.7 cm from ureteropelvic junction. Correlate clinically and with urinalysis. CT can further assess as clinically warranted. Bilateral ureteral jets visualized in the bladder. Bilateral renal cysts. MDM Narrative Physical exam and history were performed. Nursing notes, EMR, and Medication List were personally reviewed. Patient appears to have developed a fever over the past several hours. He does have a recent diagnosis of ureteral calculi and continues being symptomatic from this. IV access was established and labs were obtained. The patient was hydrated with normal saline. He was given IV morphine, IV Zofran, and IV Tylenol. KUB and ultrasound were performed. Cultures and lactic were gathered. The patient blood work is as above and was reviewed. He does not have a significantly elevated white blood cell count, gross anemia, or significant electrolyte imbalance. Transaminases are not diagnostic. Urine is with esterase and white blood cells. He was given IV Rocephin for possible infection. Lactic acid is negative with cultures pending. KUB does suggest stone with radiology read pending. Ultrasound does confirm a ureteral calculi that appears just proximal to the UVJ. The ultrasound appears to suggest a 1 cm stone, which is markedly different from the [address] The patient does not appear well for discharge home. I have concern for the development of a septic/infected stone that is obstructing. The case was discussed with Dr. Travis of urology who recommended we keep the patient n.p.o. The case was also discussed with the on-call [facility] hospitalist who agreed to evaluate the patient here in the department. Please see the hospitalist dictation for further patient course, plan, and disposition. The chart was completed utilizing [employer] Voice Recognition Software. Grammatical errors, random word insertions, pronoun errors, and incomplete sentences are an occasional consequence of this system due to software limitations, ambient noise, and hardware issues. Any formal questions or concerns about the content, text, or information contained within the body of this dictation should be directly addressed to the provider for clarification. . Impression & Plan Left ureteral calculus Discharge Plan Visit Data Chief Complaint: Abdominal Pain Stated Complaint: abd pain,bladder area, fever ED Provider: Nicole Solis ED Midlevel Provider: Jhonny Mandujano Discharge Problem: Left ureteral calculus Discharge Instructions Interventions: ED Discharge Assessment Last Done: 05/04/18 04:50 Forms Stand Alone Forms: Call Back Authorization, [facility] Prescriptions Prescriptions: No Action atorvastatin 10 mg tablet 10 mg PO QPM RF: 0 metoprolol succinate 100 mg tablet extended release 24 hr 100 mg PO QAM RF: 0 amlodipine 5 mg tablet 5 mg PO QAM RF: 0 sulfamethoxazole-trimethoprim 800-160 mg tablet 1 tab PO BID RF: 0 valsartan 320 mg tablet 320 mg PO DAILY RF: 0 aspirin 81 mg Tablet,Delayed Release (Dr/Ec) 81 mg PO DAILY RF: 0 ascorbic acid (vitamin C) [Vitamin C] 500 mg Tablet 500 mg PO DAILY RF: 0 cholecalciferol (vitamin D3) [Vitamin D3] 1,000 unit Capsule 1,000 units PO DAILY RF: 0 [place] [id number] mg Capsule 1 cap PO DAILY RF: 0 tamsulosin 0.4 mg capsule 0.4 mg PO DAILY Qty: 20 RF: 0 ondansetron 4 mg tablet,disintegrating 4 mg PO Q6H PRN (Reason: nausea and vomiting) Qty: 10 RF: 0 oxycodone 5 mg tablet 5 mg PO Q6H PRN (Reason: pain) Qty: 12 RF: 0 naproxen 250 mg tablet 250 mg PO BID Qty: 14 RF: 0 Referrals Referrals: Christiano Myers MD [Primary Care Provider] -
--- NOTE | 2018-05-04 04:06 | History & Physical Report ---
Date of Service May 04, 2018 Assessment & Plan (1) Kidney stone: 63 y/o M Hx VT, HTN, HLD, BPH, nephrolithiasis. Presented to the ER 04/29 with L flank pain and was diagnosed with a 4mm ureteral calculus. He was discharged with Flomax, pain medications and Bactrim. He returns with worsening pain, nausea, vomiting and describes a fever as well. He had been sieving his urine and did not notice passage of a stone. He states that his pain travelled from his upper to mid L flank and then persisted in the same area. A f/u ultrasound on return to the ER demonstrates a 1cm stone, 3cm from the L UPJ. This likely represents an imaging disparity rather than an additional stone. Labs are notable for JEFFREY. A UA is negative. 1) Obstructing calculus - reported size merits intervention. NPO, IVF, narcotics, Flomax, antiemetics provided. Urology contacted. Despite his defibrillator, his RCRI is 0.4% and he can proceed to the OR without additional cardiovascular workup. He does not appear toxic and his UA is negative. However, a subjective fever was reported and intervention is pending. He is placed on Ceftriaxone therefore. 2) JEFFREY - IVF provided 3) HTN/HLD - Cont Norvasc, Metoprolol - Valsartan held pre-op. 4) VT - cont Metoprolol - defib set to detect at > 225BPM Full code - SCDs Total time for this admit including review of labs, meds, imaging, records - discussion with pt and ER attending - 38 min Present on Admission?: Yes History of Present Illness Chief Complaint: Flank pain, fever, obstructing calculus Primary Care Provider: Hever Myers MD 63 y/o M Hx VT, HTN, HLD, BPH, nephrolithiasis. Presented to the ER 04/29 with L flank pain and was diagnosed with a 4mm ureteral calculus. He was discharged with Flomax, pain medications and Bactrim. He returns with worsening pain, nausea, vomiting and describes a fever as well. He had been sieving his urine and did not notice passage of a stone. He states that his pain travelled from his upper to mid L flank and then persisted in the same area. A f/u ultrasound on return to the ER demonstrates a 1cm stone, 3cm from the L UPJ. This likely represents an imaging disparity rather than an additional stone. Labs are notable for JEFFREY. A UA is negative. PMH: 1) HTN 2) HLD 3) AF 4) VT - Defibrillator - the pt developed VT one year prior leading to a syncopal episode. He awoke spontaneously and did not require CPR. He underwent an extensive workup at both [place] and [facility] and subsequently had a defibrillator placed at [place]. 5) Renal calculus 2003 - passed spontaneously 6) The pt reports an equivocal stress test which was followed by a cardiac cath showing no significant coronary disease 2018. Surgical: Defibrillator 2018 Social: Does not smoke, 1-2 glasses of home made wine HS, avid jogger, manages a hardware store Family: Mother at age 90 CHF Father - CAD/AR Allergies Allergy/AdvReac Type Severity Reaction Status Date / Time levofloxacin Allergy Unknown DIFFICULTY Verified 05/04/18 01:35 WALKING triamcinolone Allergy Unknown BLEEDING Verified 05/04/18 01:35 Home Medications Home Medications Medication Instructions Recorded Confirmed Type amlodipine 5 mg PO QAM 04/29/18 05/04/18 History ascorbic acid (vitamin C) [Vitamin 500 mg PO DAILY 04/29/18 05/04/18 History C] aspirin 81 mg PO DAILY 04/29/18 05/04/18 History atorvastatin 10 mg PO QPM 04/29/18 05/04/18 History cholecalciferol (vitamin D3) 1,000 units PO DAILY 04/29/18 05/04/18 History [Vitamin D3] metoprolol succinate 100 mg PO QAM 04/29/18 05/04/18 History naproxen 250 mg PO BID #14 tab 04/29/18 05/04/18 Rx ondansetron 4 mg PO Q6H PRN #10 tab 04/29/18 05/04/18 Rx oxycodone 5 mg PO Q6H PRN #12 tab 04/29/18 05/04/18 Rx sulfamethoxazole-trimethoprim 1 tab PO BID 04/29/18 05/04/18 History tamsulosin 0.4 mg PO DAILY #20 cap 04/29/18 05/04/18 Rx valsartan 320 mg PO DAILY 04/29/18 05/04/18 History vit C-s.hvjbxx-gigqpv-xlucs sd 1 cap PO DAILY 04/29/18 05/04/18 History [[place]] Past Med/Surg History Medical History HTN (hypertension) (Chronic) ACS (acute coronary syndrome) Atrial fibrillation with rapid ventricular response Olecranon bursitis, left elbow (Acute) Syncope and collapse Social History Feels Safe at Home: Yes Smoking Status: Never smoker Review of Systems Gen: Describes a subjective temp ENT: Denies congestion, throat pain, hearing loss Eyes: Denies acute visual changes CV: Denies CP, palpitations Pulmonary: Denies SOB, cough, wheezing GI: Nausea and vomiting : Persistent L flank pain Neuro: Denies acute or unilateral weakness, acute gait impairment, headache or acute visual changes Musculoskeletal: Denies joint pain, inflammation Endocrine: Denies polydipsia, polyuria Skin: Denies acute rashes or ulcers Physical Exam Vital Signs (Past 24 Hours): Last Vital Signs Temp 37.3 C 05/04/18 02:26 Pulse 80 05/04/18 02:26 Resp 18 05/04/18 02:26 BP 134/86 05/04/18 02:26 Pulse Ox 94 05/04/18 02:26 Physical Exam: General: AAO x 3, no distress ENT: No erythema or exudates, no thrush Eyes: LIZY, EOMI Head and neck: Normocephalic, atraumatic, No JVD, neck is supple. Chest/heart: Nontender, S1,2, RRR, no murmurs, no gallops Lungs: CTAB, no wheezing or crackles Abdomen: Nontender, nondistended, BS+ - After receiving narcotics his flank was not tender Neuro: AAO x 3, speech is clear, no unilateral weakness or loss of sensation, coordination intact Musculoskeletal: No joint inflammation, muscle tenderness, FROM Skin: No acute rashes or ulcers Extremities: No clubbing, cyanosis, edema Results & Data Diagnostic Findings US renal: Mild L hydro, 1cm stone 3cm proximal to UPJ
[2018-05-04] MEDS ORDERED: D5W AND LACTATED RINGERS 1,000 ML IV SCH (05:58)
[2018-05-04] MEDS ORDERED: MAGNESIUM HYDROXIDE SUSP 30 ML UDC PO PRN (05:58)
[2018-05-04] MEDS ORDERED: ONDANSETRON INJ 2 MG/ML 2 ML VIAL IV PRN (05:58)
[2018-05-04] MEDS ORDERED: ALUMINUM/MAGNESIUM SUSP 30 ML UDC PO PRN (05:58)
[2018-05-04] MEDS ORDERED: POLYETHYLENE (MIRALAX) 17 GM PACK PO PRN (05:58)
[2018-05-04] MEDS ORDERED: ZOLPIDEM TARTRATE 5 MG TAB PO PRN (05:58)
--- NOTE | 2018-05-04 06:25 | Urology Consultation ---
Date of Consultation May 04, 2018 Assessment & Plan (1) Kidney stone: A/P 63 yo male with L renal colic due to ureteral calculi, fever at home. Patient's prior UC&S is negative, UA shows epithelial cells, no nitrites or bacteria, WBC wnl and patient appears relatively comfortable and nontoxic. No indications of urosepsis or impending septic decompensation. I am not sure why his fever occurred by I would tend to think it unrelated to his ongoing left stone and urinary issues. Regarding his stone, his CT scan is a more accurate survey of stone size than his current US, the main use of which is to determine the degree of hydro present which seems minimally if at all increased from his CT scan. Stone is not clearly visible on KUB. The distal migration of his pain to the lower abdomen as well as the onset of irritative voiding symptoms implies distal migration of his stone which is encouraging. All of these findings are reviewed with the patient. At this point I do not think acute intervention is necessary. Will leave NPO for now and monitor for recurrent fevers or evidence of decompensation this AM. If he does well and remains stable, consider a diet in the afternoon. If worrisome signs develop we can consider intervention eg. ureteral stent placement later today or tomorrow. Will defer f/u later today to our OCCUPATIONAL SAFETY SPECIALIST and beef boner physician. Patienet vocalizes understanding of the treatment plan. Thank you for allowing us to participate in this patient's acute care. Bubba chase. History of Present Illness Reason for Consultation: Left ureteral stone, fever at home Attending Physician: Satinder Pino MD History of Present Illness 63 yo male admitted due to persistent L flank pain, fever of >101 at home. He was seen in the ER less than a week ago and underwent a CT scan showing a 4 mm proximal L ureteral stone. He was being Rxed at the time for possible UTI by PMD, but culture results were negative. He returned to the ER as instructed due to his temperature. He notes a prior history of stone ~ 10 years ago this being his second episode. His inpatient and outpatient chart are reviewed including CT imaging and KUB. WBC noted to be wnl, currently afebrile. consultation sought out to assist with his acute care. He has been previously seen by Dr. Hair by our service in 2016 at the time of a negative PBx for an elevated PSA. He reports his PSA values have since normalized. Allergies Allergy/AdvReac Type Severity Reaction Status Date / Time levofloxacin Allergy Unknown DIFFICULTY Verified 05/04/18 01:35 WALKING triamcinolone Allergy Unknown BLEEDING Verified 05/04/18 01:35 Home Medications Home Medications Medication Instructions Recorded Confirmed Type amlodipine 5 mg PO QAM 04/29/18 05/04/18 History ascorbic acid (vitamin C) [Vitamin 500 mg PO DAILY 04/29/18 05/04/18 History C] aspirin 81 mg PO DAILY 04/29/18 05/04/18 History atorvastatin 10 mg PO QPM 04/29/18 05/04/18 History cholecalciferol (vitamin D3) 1,000 units PO DAILY 04/29/18 05/04/18 History [Vitamin D3] metoprolol succinate 100 mg PO QAM 04/29/18 05/04/18 History naproxen 250 mg PO BID #14 tab 04/29/18 05/04/18 Rx ondansetron 4 mg PO Q6H PRN #10 tab 04/29/18 05/04/18 Rx oxycodone 5 mg PO Q6H PRN #12 tab 04/29/18 05/04/18 Rx sulfamethoxazole-trimethoprim 1 tab PO BID 04/29/18 05/04/18 History tamsulosin 0.4 mg PO DAILY #20 cap 04/29/18 05/04/18 Rx valsartan 320 mg PO DAILY 04/29/18 05/04/18 History vit C-s.vlutip-taevlr-miywx sd 1 cap PO DAILY 04/29/18 05/04/18 History [[place]] Patient History Medical History HTN (hypertension) (Chronic) ACS (acute coronary syndrome) Atrial fibrillation with rapid ventricular response Olecranon bursitis, left elbow (Acute) Syncope and collapse BPH (benign prostatic hyperplasia) Cardiac defibrillator in place Colic, ureteral Hydronephrosis concurrent with and due to calculi of kidney and ureter Hyperlipemia Kidney stones Urinary frequency Surgical History H/O prostate biopsy Family History Father Diabetes 1.5, managed as type 1 Cardiac abnormality Other Family history non-contributory Social History Preferred Language: Cuban Communication Ability: Effective Beliefs That Will Affect Care: None Current Living Situation: Spouse Other Information That Helps Us Care for You: No Feels Safe at Home: Yes Safety Concerns: Feels Safe At This Time Smoking Status: Never smoker Hx Alcohol Use: Yes Hx Substance Use: No Review of Systems Constitutional: + fever; no weight loss Eyes: no blind spots Ear, Nose, Mouth, Throat: no ear pain Respiratory: no hemoptysis Cardiovascular: no chest pain Gastrointestinal: + abdominal pain; no hematemesis Genitourinary (Male): + urinary frequency and + flank pain Musculoskeletal: no deformity Integumentary: no acne and no boil Neurologic: no paralysis and no numbness Hematologic / Lymphatic: no easy bleeding Physical Exam Vital Signs (Past 24 Hours): Last Vital Signs Temp 36.8 C 05/04/18 05:36 Pulse 63 05/04/18 05:36 Resp 18 05/04/18 05:36 BP 135/71 05/04/18 05:36 Pulse Ox 93 05/04/18 05:36 Constitutional: WD/WN, vitals as above Eyes: eyes not dysmorphic ENMT: Ears: no external ear abnormality Neck: trachea midline; no anterior neck swelling Respiratory: no respiratory distress and does not use accessory muscles Cardiovascular: Vessels: + radial pulses abnormal Gastrointestinal (Abdomen): Percussion/Palpation: abdomen soft; abdomen nontender and no guarding Skin: normal turgor Neurologic: CN's II-XI intact bilaterally and awake; not obtunded Psychiatric: Orientation: oriented x 3 Lymphatic: no lymphadenopathy Results & Data Laboratory Results Laboratory Results - last 48 hr 05/04/18 05/04/18 05/04/18 01:20 01:20 01:20 WBC 7.37 RBC 4.64 L Hgb 14.2 Hct 41.9 L MCV 90.3 MCH 30.6 MCHC 33.9 RDW Std Deviation 42.4 RDW Coeff of [place] 12.8 Plt Count 134 MPV 9.6 Immature Gran % (Auto) 0.1 Neut % (Auto) 83.4 Lymph % (Auto) 6.8 [place] % (Auto) 5.8 Eos % (Auto) 3.8 Baso % (Auto) 0.1 Immature Gran # (Auto) 0.01 Neut # (Auto) 6.14 Lymph # (Auto) 0.50 L [place] # (Auto) 0.43 Eos # (Auto) 0.28 Baso # (Auto) 0.01 Sodium 135 L Potassium 4.1 Chloride 103 Carbon Dioxide 26 Anion Gap 6.0 BUN 19 H Creatinine 1.41 H Est Cr Clr Drug Dosing 56.3 Est GFR ( Amer) 61.0 Est GFR (Non-Af Amer) 52.6 BUN/Creatinine Ratio 13.4 Glucose 113 H Lactate Calcium 8.1 L Total Bilirubin 0.9 AST 27 ALT 36 Alkaline Phosphatase 96 Total Protein 7.3 Albumin 3.8 Globulin 3.5 Albumin/Globulin Ratio 1.1 Lipase 90 Procalcitonin 0.09 Urine Color Urine Appearance Urine pH Ur Specific [place] Urine Protein Urine Glucose (UA) Urine Ketones Urine Blood Urine Nitrite Urine Bilirubin Urine Urobilinogen Ur Leukocyte Esterase Urine WBC (Auto) Urine RBC (Auto) U Hyaline Cast (Auto) U Epithel Cells (Auto) Urine Bacteria (Auto) Influenza Type A Ag Influenza Type B Ag 05/04/18 05/04/18 05/04/18 01:20 01:20 02:30 WBC RBC Hgb Hct MCV MCH MCHC RDW Std Deviation RDW Coeff of [place] Plt Count MPV Immature Gran % (Auto) Neut % (Auto) Lymph % (Auto) [place] % (Auto) Eos % (Auto) Baso % (Auto) Immature Gran # (Auto) Neut # (Auto) Lymph # (Auto) [place] # (Auto) Eos # (Auto) Baso # (Auto) Sodium Potassium Chloride Carbon Dioxide Anion Gap BUN Creatinine Est Cr Clr Drug Dosing Est GFR ( Amer) Est GFR (Non-Af Amer) BUN/Creatinine Ratio Glucose Lactate 1.0 Calcium Total Bilirubin AST ALT Alkaline Phosphatase Total Protein Albumin Globulin Albumin/Globulin Ratio Lipase Procalcitonin Urine Color Yellow Urine Appearance Clear Urine pH 6.0 Ur Specific [place] 1.022 Urine Protein Negative Urine Glucose (UA) Negative Urine Ketones 1+ H Urine Blood 1+ H Urine Nitrite Negative Urine Bilirubin Negative Urine Urobilinogen Negative Ur Leukocyte Esterase Trace H Urine WBC (Auto) 5-10 H Urine RBC (Auto) 5-10 H U Hyaline Cast (Auto) 5-10 H U Epithel Cells (Auto) 10-20 H Urine Bacteria (Auto) Negative Influenza Type A Ag Neg for Influ A Influenza Type B Ag Neg for Influ B Diagnostic Findings Renal US reviewed - mild to mod L hydro. CT images reviewed as noted.
--- NOTE | 2018-05-04 06:46 | XRay Report ---
KUB CLINICAL HISTORY: Left-sided kidney stone. COMPARISON STUDY: CT of the abdomen and pelvis April 29, 2018. FINDINGS: Pacer/AICD is incidentally noted. Pelvic calcifications reflect prostatic calcifications. T here is possible visualization of a 4 mm proximal left ureteral calculus located at the upper L3 leve l. No additional urinary calculi are identified. IMPRESSION: Possible visualization of a 4 mm left ureteral calculus at the upper L3 level. Electronically signed by: Aamir Ponce M.D. 05/04/2018 6:45 AM
--- NOTE | 2018-05-04 07:12 | Ultrasound Report ---
US renal/blad retro comp CLINICAL HISTORY: 63 years-old Male presenting with recent kidney stone. TECHNIQUE: Real-time grayscale and limited color Doppler ultrasound imaging of the kidneys and bladde r was performed. COMPARISON: CT from 04/29/2018. FINDINGS: Right kidney: Normal echogenicity of renal parenchyma. Right kidney measures 11.3 cm. No hydronephros is. Multiple renal cysts, the largest of which is parapelvic in location, measuring 1.1 cm. Left kidney: Normal echogenicity of renal parenchyma. Left kidney measures 12.6 cm. Mild to moderate hydronephrosis. Several renal cysts evident. 1 cm hyperechoic shadowing focus noted in the proximal l eft ureter less than 3 cm from the left ureteropelvic junction, which likely correlates with the know n obstructing calculus. Upper stream ureteral distention. Bladder: Incompletely distended though grossly normal. Bilateral ureteral jets present. Other: None. IMPRESSION: 1. Obstructing or partially obstructing calculus in the proximal left ureter, which correlates with the findings on recent CT. Resultant mild to moderate left hydroureteronephrosis. Electronically signed by: Kyle Bragg M.D. 05/04/2018 7:11 AM
[2018-05-04] MEDS: AMLODIPINE BESYLATE 5 MG TAB PO SCH (07:47)
[2018-05-04] MEDS: TAMSULOSIN HCL 0.4 MG CAP PO SCH (07:47)
[2018-05-04] MEDS: METOPROLOL SUCC 50MG EXT REL TAB PO SCH (07:47)
[2018-05-04] MEDS: HYDROmorphone INJ 0.5 MG/0.5 ML SYR IV PRN ×4 (10:42→23:49)
[2018-05-04] MEDS: ASPIRIN 81 MG ECTAB PO SCH (14:04)
[2018-05-04] MEDS: ACETAMINOPHEN 325 MG TAB PO PRN (14:57)
--- NOTE | 2018-05-04 15:40 | XRay Report ---
XR chest 1V portable CLINICAL HISTORY: preop emergently preoperative evaluation COMPARISON STUDY: 02/19/2017 FINDINGS: Lungs are clear. Diaphragms are smooth. HISTORY: Of bile stimulator pack overlying the left chest wall. IMPRESSION: No acute process. The above report was generated using voice recognition software. It may contain grammatical, syntax or spelling errors. Electronically signed by: John Méndez M.D. 05/04/2018 3:38 PM
--- NOTE | 2018-05-04 16:59 | Hospitalist Progress Note ---
Date of Service May 04, 2018 Assessment & Plan (1) Kidney stone: (2) HTN (hypertension): 63 y/o M Hx VT, HTN, HLD, BPH, nephrolithiasis admitted on 04/29 with Kidney stone asso with L flank pain Kidney stone with 4mm ureteral calculus. ED ultrasound on return to the ER demonstrates a 1cm stone, 3cm from the L UPJ. abd Ct on 04/29/2018: Obstructing 4 mm calculus in the proximal left ureter with resultant mild left hydroureteronephrosis. No additional renal or ureteral calculus. Urology saw patient, continue IV fluid, pain control, Flomax, no plan for procedure except develop sign of worsening blockage and urosepsis, ot was having a subjective fever prior to admission, no more fever, has been on ceftriaxone, will continue JEFFERY , stable will continue IV fluid HTN/HLD - Cont Norvasc, Metoprolol - Valsartan held pre-op, blood pressure is stable at 123/67 hx of VT - cont Metoprolol - defib set to detect at > 225BPM Continue current care continue follow-up more input from neurologist Full code - SCDs Subjective Mild left-sided kidney pain, about 3-4 out of 10, did not request any medicine yet Currently no fever and chill Review of Systems Constitutional: negative weakness, or fatigue Respiratory: no cough, sputum, wheezing, or dyspnea on exertion Cardiac: No chest pain, No orthopnea, No PND, No claudication, No palpitations, Abdomen: No pain, No nausea, No vomiting, No diarrhea Musculoskeletal: No joint pain, No muscle pain, No swelling, : No dysuria, No urinary frequency, No incontinence, No hematuria Neurologic: No paralysis, No weakness, No numbness/tingling, Psychiatric: No depression symptoms, No anhedonism, No anxiety, Heme: No abnormal bleeding/bruising, No clotting problems, N Skin: No rash, No itch, No new/changing skin lesions, No color change, No bleeding Physical Exam Vital Signs (Past 24 Hours): Last Vital Signs Temp 37.5 C 05/04/18 16:23 Pulse 61 05/04/18 15:20 Resp 16 05/04/18 15:20 BP 123/67 05/04/18 15:20 Pulse Ox 93 05/04/18 15:20 Physical Exam: General Appearance: WD/WN, no apparent distress, Eyes: normal inspection, PERRL, EOMI, sclerae normal ENT: normal ENT inspection, hearing grossly normal, pharynx normal Neck: supple, no adenopathy, thyroid normal, no JVD, no carotid bruits, trachea midline Respiratory/Chest: chest non-tender, normal breath sounds, no respiratory distress, no accessory muscle use, rales, wheezing Cardiovascular: regular rate, rhythm, no JVD, no murmur Abdomen: Left CVA neg tenderness , normal bowel sounds, non tender, soft, no organomegaly, Extremities: normal range of motion, non-tender, normal inspection, no pedal edema, no calf tenderness, normal capillary refill, pelvis stable, Neurologic/Psychiatric: program development specialist II-XII nml as tested, no motor/sensory deficits, alert, normal mood/affect, oriented x 3 Skin: normal color, warm/dry, no rash Lymphatic: no adenopathy Results & Data Laboratory Results Laboratory Results - last 24 hr 05/04/18 05/04/18 05/04/18 01:20 01:20 01:20 WBC 7.37 RBC 4.64 L Hgb 14.2 Hct 41.9 L MCV 90.3 MCH 30.6 MCHC 33.9 RDW Std Deviation 42.4 RDW Coeff of [place] 12.8 Plt Count 134 MPV 9.6 Immature Gran % (Auto) 0.1 Neut % (Auto) 83.4 Lymph % (Auto) 6.8 [place] % (Auto) 5.8 Eos % (Auto) 3.8 Baso % (Auto) 0.1 Immature Gran # (Auto) 0.01 Neut # (Auto) 6.14 Lymph # (Auto) 0.[address] [place] # (Auto) 0.43 Eos # (Auto) 0.28 Baso # (Auto) 0.01 Sodium 135 L Potassium 4.1 Chloride 103 Carbon Dioxide 26 Anion Gap 6.0 BUN 19 H Creatinine 1.41 H Est Cr Clr Drug Dosing 56.3 Est GFR ( Amer) 61.0 Est GFR (Non-Af Amer) 52.6 BUN/Creatinine Ratio 13.4 Glucose 113 H Lactate Calcium 8.1 L Total Bilirubin 0.9 AST 27 ALT 36 Alkaline Phosphatase 96 Total Protein 7.3 Albumin 3.8 Globulin 3.5 Albumin/Globulin Ratio 1.1 Lipase 90 Procalcitonin 0.09 Urine Color Urine Appearance Urine pH Ur Specific [place] Urine Protein Urine Glucose (UA) Urine Ketones Urine Blood Urine Nitrite Urine Bilirubin Urine Urobilinogen Ur Leukocyte Esterase Urine WBC (Auto) Urine RBC (Auto) U Hyaline Cast (Auto) U Epithel Cells (Auto) Urine Bacteria (Auto) Influenza Type A Ag Influenza Type B Ag 05/04/18 05/04/18 05/04/18 01:20 01:20 02:30 WBC RBC Hgb Hct MCV MCH MCHC RDW Std Deviation RDW Coeff of Kely Plt Count MPV Immature Gran % (Auto) Neut % (Auto) Lymph % (Auto) [place] % (Auto) Eos % (Auto) Baso % (Auto) Immature Gran # (Auto) Neut # (Auto) Lymph # (Auto) [place] # (Auto) Eos # (Auto) Baso # (Auto) Sodium Potassium Chloride Carbon Dioxide Anion Gap BUN Creatinine Est Cr Clr Drug Dosing Est GFR ( Amer) Est GFR (Non-Af Amer) BUN/Creatinine Ratio Glucose Lactate 1.0 Calcium Total Bilirubin AST ALT Alkaline Phosphatase Total Protein Albumin Globulin Albumin/Globulin Ratio Lipase Procalcitonin Urine Color Yellow Urine Appearance Clear Urine pH 6.0 Ur Specific [place] 1.022 Urine Protein Negative Urine Glucose (UA) Negative Urine Ketones 1+ H Urine Blood 1+ H Urine Nitrite Negative Urine Bilirubin Negative Urine Urobilinogen Negative Ur Leukocyte Esterase Trace H Urine WBC (Auto) 5-10 H Urine RBC (Auto) 5-10 H U Hyaline Cast (Auto) 5-10 H U Epithel Cells (Auto) 10-20 H Urine Bacteria (Auto) Negative Influenza Type A Ag Neg for Influ A Influenza Type B Ag Neg for Influ B
[2018-05-04] MEDS: ATORVASTATIN 10 MG TAB PO SCH (20:32)
[2018-05-05] MEDS: HYDROmorphone INJ 0.5 MG/0.5 ML SYR IV PRN ×4 (03:37→20:36)
[2018-05-05] MEDS: cefTRIAXone SODIUM 1,000 MG/50 ML BAG IV SCH (05:28)
--- NOTE | 2018-05-05 07:17 | XRay Report ---
XR KUB CLINICAL HISTORY: stone progression nephrocalcinosis COMPARISON STUDY: 05/04/2018 FINDINGS: Bowel gas pattern obscures the upper urinary tracts. The 4 mm calcification at approximatel y level of the L2-3 level on the prior study appears to be similar. The bowel pattern itself is nonob structive. IMPRESSION: Limited study suggesting the possibility of an unchanged position of the proximal left u reteral calculus. Visibility is compromised due to overlying bowel content. The above report was generated using voice recognition software. It may contain grammatical, syntax or spelling errors. Electronically signed by: John Méndez M.D. 05/05/2018 7:16 AM
[2018-05-05 07:43] LABS: BUN Creatinine Ratio 15.2 (10-20); Calcium 8.5 mg/dl (8.5-10.1); Creatinine Clr Calc Pharmacy 68.2 ml/min; Est GFR (African American) 77.2; Est GFR (Non-African American) 66.7; Magnesium 2.6 mg/dl (1.8-2.4); Phosphorus 2.5 mg/dl (2.5-4.9); Potassium 4.6 mmol/L (3.5-5.1)
[2018-05-05] MEDS: METOPROLOL SUCC 50MG EXT REL TAB PO SCH (08:06)
[2018-05-05] MEDS: ACETAMINOPHEN 325 MG TAB PO PRN (08:06)
[2018-05-05] MEDS: ASPIRIN 81 MG ECTAB PO SCH (08:07)
[2018-05-05] MEDS: AMLODIPINE BESYLATE 5 MG TAB PO SCH (08:07)
[2018-05-05] MEDS: TAMSULOSIN HCL 0.4 MG CAP PO SCH (08:07)
[2018-05-05] MEDS: SODIUM CHLORIDE 0.9% 1000ML 1,000 ML IV SCH ×2 (10:27→21:56)
[2018-05-05] MEDS ORDERED: fentaNYL citrate 100 MCG/2 ML VIAL ONE (11:43)
[2018-05-05] MEDS ORDERED: LIDOCAINE HCL 2% 2 ML VIAL/AMP(20MG/ML) INFIL ONE (11:43)
[2018-05-05] MEDS ORDERED: PROPOFOL IV EMULSION 10 MG/ML 20 ML VIAL IV ONE (11:43)
[2018-05-05] MEDS ORDERED: MIDAZOLAM HCL 1 MG/ML 2ML VIAL ONE (11:44)
[2018-05-05] MEDS ORDERED: IOTHALAMATE MEGLUMINE II 17.2% 250 ML VIAL ONE (11:45)
--- NOTE | 2018-05-05 11:59 | History & Physical Bridge Note ---
Date of Service May 05, 2018 History & Physical Bridge Note I have examined the patient, reviewed the History & Physical and in the interval since the performance of the History & Physical I have noted the following changes of clinical significance: no changes noted Cystosocpy with left retrograde pyelogram and stent placement.
--- NOTE | 2018-05-05 12:05 | Anesthesiology Consultation ---
Date of Service May 05, 2018 Assessment & Plan Chart Review Chart Review: Acceptable Risk for Surgery Consults Requested none NPO Date Last Intake of Fluids: 05/04/18 Time Last Intake of Fluids: 23:59 Last Intake of Fluids Comment: sip of water with medications Date Last Intake of Solids: 05/04/18 Time Last Intake of Solids: 06:00 History Surgery Operation Date: 05/04/18 08:35 Proposed Procedures p Left Cystoscopy Stent Insertion - Nahun Renner II, DO Height/Weight Height: 5 ft 7 in Weight: 85.7 kg Allergies Allergy/AdvReac Type Severity Reaction Status Date / Time levofloxacin Allergy Unknown DIFFICULTY Verified 05/04/18 01:35 WALKING triamcinolone Allergy Unknown BLEEDING Verified 05/04/18 01:35 Medications Home Medications Medication Instructions Recorded Confirmed Last Taken amlodipine 5 mg PO QAM 04/29/18 05/04/18 05/03/18 ascorbic acid (vitamin C) [Vitamin 500 mg PO DAILY 04/29/18 05/04/18 05/03/18 C] aspirin 81 mg PO DAILY 04/29/18 05/04/18 05/03/18 atorvastatin 10 mg PO QPM 04/29/18 05/04/18 05/03/18 cholecalciferol (vitamin D3) 1,000 units PO DAILY 04/29/18 05/04/18 05/03/18 [Vitamin D3] metoprolol succinate 100 mg PO QAM 04/29/18 05/04/18 05/03/18 naproxen 250 mg PO BID #14 tab 04/29/18 05/04/18 05/03/18 ondansetron 4 mg PO Q6H PRN #10 tab 04/29/18 05/04/18 Unknown oxycodone 5 mg PO Q6H PRN #12 tab 04/29/18 05/04/18 Unknown sulfamethoxazole-trimethoprim 1 tab PO BID 04/29/18 05/04/18 05/03/18 tamsulosin 0.4 mg PO DAILY #20 cap 04/29/18 05/04/18 05/03/18 valsartan 320 mg PO DAILY 04/29/18 05/04/18 05/03/18 vit C-s.skwlka-ahokly-thiac sd 1 cap PO DAILY 04/29/18 05/04/18 05/03/18 [[place]] Active Medications Generic Name Dose Route Start Last Admin Trade Name Freq PRN Reason Stop Dose Admin Acetaminophen 650 mg 05/04/18 05:58 05/05/18 08:06 Tylenol PO 06/03/18 05:57 650 mg Q4H PRN Administration pain/fever Amlodipine Besylate 5 mg 05/04/18 09:00 05/05/18 08:07 Norvasc PO 06/03/18 08:59 5 mg QAM TOBY Administration Aspirin 81 mg 05/04/18 09:00 05/05/18 08:07 Ecotrin Ectab PO 06/03/18 08:59 Not Given DAILY TOBY Atorvastatin Calcium 10 mg 05/04/18 21:00 05/04/18 20:32 Lipitor PO 06/03/18 20:59 10 mg QPM TOBY Administration Hydromorphone HCl 0.5 mg 05/04/18 05:58 05/05/18 09:33 Dilaudid IV 05/18/18 05:57 0.5 mg Q3H PRN Administration Pain Ceftriaxone Sodium 1,000 mg in 50 mls @ 100 mls/hr 05/05/18 06:00 05/05/18 05:58 Rocephin IV 05/15/18 05:59 Infused Q24H TOBY Infusion Sodium Chloride 1,000 mls @ 80 mls/hr 05/05/18 10:15 05/05/18 10:27 Nss 1000ml IV 06/04/18 10:14 80 mls/hr .[id number] TOBY Administration Metoprolol Succinate 100 mg 05/04/18 09:00 05/05/18 08:06 Toprol Xl PO 06/03/18 08:59 100 mg QAM TOBY Administration Tamsulosin HCl 0.4 mg 05/04/18 09:00 05/05/18 08:07 Flomax PO 06/03/18 08:59 0.4 mg DAILY TOBY Administration Past Medical History Medical History HTN (hypertension) (Chronic) ACS (acute coronary syndrome) Atrial fibrillation with rapid ventricular response Olecranon bursitis, left elbow (Acute) Syncope and collapse BPH (benign prostatic hyperplasia) Cardiac defibrillator in place Colic, ureteral Hydronephrosis concurrent with and due to calculi of kidney and ureter Hyperlipemia Kidney stones Urinary frequency Past Family History Family History Father Diabetes 1.5, managed as type 1 Cardiac abnormality Other Family history non-contributory Past Surgical History Surgical History H/O prostate biopsy Social History Smoking Status: Never smoker Hx Alcohol Use: Yes Alcohol type: wine alcohol intake frequency: 0-2 drinks per day Hx Substance Use: No Physical Exam Vital Signs Last Vital Signs Temp 37.7 C H 05/05/18 07:58 Pulse 64 05/05/18 07:58 Resp 16 05/05/18 07:58 BP 143/74 H 05/05/18 07:58 Pulse Ox 93 05/05/18 07:58 Testing Laboratory Results 05/04/18 01:20 05/05/18 06:38 Urine Color Yellow 05/04/18 01:20 Urine Appearance Clear (Clear) 05/04/18 01:20 Urine pH 6.0 (4.5-7.5) 05/04/18 01:20 Ur Specific [place] 1.022 (1.000-1.030) 05/04/18 01:20 Urine Protein Negative (Negative) 05/04/18 01:20 Urine Glucose (UA) Negative (Negative) 05/04/18 01:20 Urine Ketones 1+ (Negative) H 05/04/18 01:20 Urine Nitrite Negative (Negative) 05/04/18 01:20 Ur Leukocyte Esterase Trace (Negative) H 05/04/18 01:20 Urine WBC (Auto) 5-10 /hpf (0-5) H 05/04/18 01:20 Urine RBC (Auto) 5-10 /hpf (0-4) H 05/04/18 01:20 U Hyaline Cast (Auto) 5-10 /lpf (0-5) H 05/04/18 01:20 U Epithel Cells (Auto) 10-20 /lpf (0-5) H 05/04/18 01:20 Urine Bacteria (Auto) Negative (Negative) 05/04/18 01:20 05/04/18 01:35 Blood Culture - Preliminary Blood No growth to date. 05/04/18 01:20 Blood Culture - Preliminary Blood No growth to date.
[2018-05-05] MEDS ORDERED: fentaNYL citrate 100 MCG/2 ML VIAL IV PRN (12:10)
[2018-05-05] MEDS ORDERED: ATROPINE SULFATE 0.1 MG/ML 10ML SYR IV PRN (12:10)
[2018-05-05] MEDS ORDERED: HYDROmorphone INJ 2 MG/ML SYR/VIAL IV PRN (12:10)
[2018-05-05] MEDS ORDERED: ePHEDrine sulfate 50 MG/ML AMP IV PRN (12:10)
[2018-05-05] MEDS ORDERED: GENTAMICIN SULFATE 40 MG/ML 2 ML VIAL ONE (12:22)
--- NOTE | 2018-05-05 12:30 | Operative Report ---
Post Operative Report Pre & Post Diagnosis Obstructing Left Ureteral Stone Same Operation Date: 05/05/18 12:00 <No data on this case meets the specified criteria> Procedure Cystoscopy with left stent placement and retrograde pyelogram. Operation Date: 05/05/18 12:00 <No data on this case meets the specified criteria> Surgeon Nahun Renner, II, DO Stereotype Molder None Estimated Blood Loss 0 Findings Consistent with Post-Op Diagnosis Specimens Urine Left Renal Pelvis. Drains 6 Fr Multilength. Anesthesia Type General Complications none Disposition Disposition: Recovery Room Indications Obstructing stone with intermittent fevers. Risks and benefits discussed at length. Description of Procedure Patient was consented and brought back to the operating room. Patient was placed under anesthesia in the supine position and moved to the dorsal lithotomy position. Patient was prepped and draped in the regular sterile fashion. A time out was completed. A 30degree Cystoscope was placed into the bladder and the entire bladder was examined. The UO's were identified. The left UO was cannulized with a catheter, urine was aspirated, and a retrograde pyelogram was completed. A wire was then placed. With the wire in place, a 6 Fr Double J stent was placed. It was confirmed with fluoroscopy. With the stent in place, the bladder was emptied. The scope was removed. The patient was cleaned, aroused from anesthesia, and transferred to the pacu in stable condition having tolerated the procedure well with no complications. I was present and participated in all aspects of the procedure. The patient will be monitored in the PACU until transferred. I attest to the content of the Intraoperative Record and any orders documented therein. Any exceptions are noted below.
--- NOTE | 2018-05-05 12:35 | Fluoroscopy Report ---
FL retrograde includes kub CLINICAL HISTORY: LT STENTstent placement COMPARISON STUDY: None FLUOROSCOPY TIME: 20 seconds NUMBER OF FLUOROSCOPIC IMAGES: 3 FINDINGS: Successful placement of a left ureteral stent IMPRESSION: Successful placement of a left ureteral stent The above report was generated using voice recognition software. It may contain grammatical, syntax or spelling errors. Electronically signed by: John Méndez M.D. 05/05/2018 12:34 PM
--- NOTE | 2018-05-05 13:19 | Anesthesiology Progress Note ---
Date of Service May 05, 2018 Anesthesia Post Procedure Vital Signs Vital Signs: Temp Pulse Pulse Resp BP BP Pulse Ox 05/05/18 13:15 36.6 C 61 18 123/62 94 05/05/18 13:05 58 L 18 121/69 94 05/05/18 12:55 62 18 122/66 97 05/05/18 12:45 61 18 124/69 97 05/05/18 12:39 36.9 C 61 18 94/61 L 94 05/05/18 07:58 37.7 C H 64 16 143/74 H 93 05/05/18 03:45 37.1 C 05/04/18 23:01 37.3 C 62 16 138/72 94 05/04/18 19:24 37.1 C 56 L 16 122/72 94 05/04/18 16:23 37.5 C 05/04/18 15:20 38.2 C H 61 16 123/67 93 05/04/18 14:56 38.7 C H Pain Intensity Left Flank: Pain Intensity: 4 Pelvic: Pain Intensity: 4 Notes Mental Status: alert / awake / arousable and participated in evaluation Patient Amnestic to Procedure: Yes Nausea / Vomiting: adequately controlled Pain: adequately controlled Airway Patency, RR, SpO2: stable & adequate BP & HR: stable & adequate Hydration State: stable & adequate Anesthetic Complications: no major complications apparent
--- NOTE | 2018-05-05 13:23 | Hospitalist Progress Note ---
Date of Service May 05, 2018 Assessment & Plan (1) Kidney stone: (2) HTN (hypertension): 63 y/o M Hx VT, HTN, HLD, BPH, nephrolithiasis admitted on 04/29 with Kidney stone asso with L flank pain Kidney stone with 4mm ureteral calculus. KUB repeated this morning, seems the position of the stone has no changes, Urology saw patient, planning to do cystoscopy today and stent if needed continue IV fluid, pain control, Flomax Continue on ceftriaxone, JEFFREY upon admission, improved HTN/HLD - Cont Norvasc, Metoprolol - Valsartan held pre-op, blood pressure is stable at 123/67 hx of VT - cont Metoprolol - defib set to detect at > 225BPM Continue current care continue follow-up more input from Full code - SCDs Subjective still have mild left-sided kidney pain, about 3-4 out of 10, did not request any medicine yet Currently no fever and chill, no nausea vomiting Review of Systems Constitutional: negative weakness, or fatigue Respiratory: no cough, sputum, wheezing, or dyspnea on exertion Cardiac: No chest pain, No orthopnea, No PND, No claudication, No palpitations, Abdomen: See above Musculoskeletal: No joint pain, No muscle pain, No swelling, : No dysuria, No urinary frequency, No incontinence, No hematuria Neurologic: No paralysis, No weakness, No numbness/tingling, Psychiatric: No depression symptoms, No anhedonism, No anxiety, Heme: No abnormal bleeding/bruising, No clotting problems, N Skin: No rash, No itch, No new/changing skin lesions, No color change, No bleeding Physical Exam Vital Signs (Past 24 Hours): Last Vital Signs Temp 36.6 C 05/05/18 13:15 Pulse 61 05/05/18 13:15 Resp 18 05/05/18 13:15 BP 123/62 05/05/18 13:15 Pulse Ox 94 05/05/18 13:15 Physical Exam: General Appearance: Mild anxious, reported pain need to be controlled with pain medicine every 3- 4 hours , WD/WN, no apparent distress, Eyes: normal inspection, PERRL, EOMI, sclerae normal ENT: normal ENT inspection, hearing grossly normal, pharynx normal Neck: supple, no adenopathy, thyroid normal, no JVD, no carotid bruits, trachea midline Respiratory/Chest: chest non-tender, normal breath sounds, no respiratory distress, no accessory muscle use, rales, wheezing Cardiovascular: regular rate, rhythm, no JVD, no murmur Abdomen: Left CVA neg tenderness , normal bowel sounds, non tender, soft, no organomegaly, Extremities: normal range of motion, non-tender, normal inspection, no pedal edema, no calf tenderness, normal capillary refill, pelvis stable, 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 05/04/18 01:20 Blood Blood Culture - Preliminary No growth to date.
[2018-05-05] MEDS ORDERED: ONDANSETRON 4 MG OD TAB PO PRN (13:38)
[2018-05-05] MEDS ORDERED: OXYCODONE HCL IR 5 MG TAB (IMMEDIATE RELEASE) PO PRN (13:38)
[2018-05-05] MEDS: NAPROXEN 250 MG TAB PO SCH (20:29)
[2018-05-05] MEDS: ATORVASTATIN 10 MG TAB PO SCH (20:30)
[2018-05-05] MEDS: PHENAZOPYRIDINE HCL 100 MG TAB PO PRN (21:55)
[2018-05-06] MEDS: cefTRIAXone SODIUM 1,000 MG/50 ML BAG IV SCH (05:23)
[2018-05-06 07:30] LABS: BUN Creatinine Ratio 20.2 (10-20); Calcium 8.3 mg/dl (8.5-10.1); Creatinine Clr Calc Pharmacy 91.9 ml/min; Est GFR (Non-African American) 92.3; Magnesium 2.3 mg/dl (1.8-2.4); Potassium 4.7 mmol/L (3.5-5.1)
[2018-05-06] MEDS: TAMSULOSIN HCL 0.4 MG CAP PO SCH (08:02)
[2018-05-06] MEDS: PHENAZOPYRIDINE HCL 100 MG TAB PO PRN (08:02)
[2018-05-06] MEDS: METOPROLOL SUCC 50MG EXT REL TAB PO SCH (08:02)
[2018-05-06] MEDS: NAPROXEN 250 MG TAB PO SCH (08:02)
[2018-05-06] MEDS: AMLODIPINE BESYLATE 5 MG TAB PO SCH (08:02)
[2018-05-06] MEDS ORDERED: VALSARTAN 80 MG TAB PO SCH (09:00)
[2018-05-06] MEDS ORDERED: CHOLECALCIFEROL 1,000 UNITS TAB PO SCH (09:00)
[2018-05-06] MEDS ORDERED: VIT C S CHERRY CELERY GRAPE SD PO SCH (09:00)
[2018-05-06] MEDS ORDERED: ASCORBIC ACID 500 MG TAB PO SCH (09:00)
--- NOTE | 2018-05-06 12:28 | Anesthesiology Progress Note ---
Date of Service May 06, 2018 Anesthesia Post Procedure Vital Signs Vital Signs: Temp Pulse Pulse Resp BP BP Pulse Ox 05/06/18 11:00 36.6 C 46 L 16 151/83 H 94 05/06/18 07:11 36.7 C 48 L 16 168/76 H 96 05/06/18 04:25 36.5 C 55 L 16 134/80 96 05/05/18 23:17 36.7 C 59 L 16 127/73 94 05/05/18 16:33 36.7 C 60 17 147/80 H 93 05/05/18 15:32 36.7 C 62 17 124/73 93 05/05/18 14:30 57 L 17 140/79 95 05/05/18 14:00 36.7 C 57 L 16 135/80 92 05/05/18 13:30 36.7 C 60 18 131/64 92 05/05/18 13:15 36.6 C 61 18 123/62 94 05/05/18 13:05 58 L 18 121/69 94 05/05/18 12:55 62 18 122/66 97 05/05/18 12:45 61 18 124/69 97 05/05/18 12:39 36.9 C 61 18 94/61 L 94 Pain Intensity Left Flank: Pain Intensity: 4 Pelvic: Pain Intensity: 2 Penis: Pain Intensity: 1 Notes Mental Status: alert / awake / arousable and participated in evaluation Patient Amnestic to Procedure: Yes Nausea / Vomiting: adequately controlled Pain: adequately controlled Airway Patency, RR, SpO2: stable & adequate BP & HR: stable & adequate Hydration State: stable & adequate Anesthetic Complications: no major complications apparent and Pt Satisfied with anesthetic care
[2018-05-06] MEDS ORDERED: cephALEXin 500 MG CAP PO SCH (13:00)
--- NOTE | 2018-05-06 14:47 | Urology Progress Note ---
Date of Service May 06, 2018 Assessment & Plan (1) Kidney stone: S/p Left Stent for obst stone with fevers and hydro POD1 Improving. Will likely need 5-10 days of abx and then plan intervention. Small stone, but impacted with large debris in obstructed urine. Likely home later today or tomorrow. Will call to set up Subjective Improved overall. no severe pain. tolerating diet. no bleeding. no severe issues. Fevers resolved. No major issues. Tolerating stent. Review of Systems All systems reviewed & are unremarkable except as noted in HPI & below Constitutional: + fever; no weight loss Gastrointestinal: + abdominal pain; no hematemesis Genitourinary (Male): + urinary frequency and + flank pain Physical Exam Vital Signs (Past 24 Hours): Last Vital Signs Temp 36.6 C 05/06/18 11:00 Pulse 46 L 05/06/18 11:00 Resp 16 05/06/18 11:00 BP 151/83 H 05/06/18 11:00 Pulse Ox 94 05/06/18 11:00 Constitutional: WD/WN, vitals as above Eyes: eyes not dysmorphic ENMT: Ears: no external ear abnormality Mouth: no TMJ abnormality Mallam irene Class: II Neck: normal visual inspection and trachea midline; no anterior neck swelling Respiratory: no respiratory distress and does not use accessory muscles Auscultation: lungs clear to auscultation bilaterally Cardiovascular: Rate/Rhythm: regular rate and regular rhythm Vessels: + radial pulses abnormal Gastrointestinal (Abdomen): Percussion/Palpation: abdomen soft; abdomen nontender and no guarding Skin: normal turgor Neurologic: CN's II-XI intact bilaterally, moves all extremities and awake; not obtunded Psychiatric: Orientation: alert and oriented x 3 Lymphatic: no lymphadenopathy
--- NOTE | 2018-05-06 17:10 | Discharge Summary ---
Date of Service May 06, 2018 Admission HPI Per Admitting Provider 63 y/o M Hx VT, HTN, HLD, BPH, nephrolithiasis. Presented to the ER 04/29 with L flank pain and was diagnosed with a 4mm ureteral calculus. He was discharged with Flomax, pain medications and Bactrim. He returns with worsening pain, nausea, vomiting and describes a fever as well. He had been sieving his urine and did not notice passage of a stone. He states that his pain travelled from his upper to mid L flank and then persisted in the same area. A f/u ultrasound on return to the ER demonstrates a 1cm stone, 3cm from the L UPJ. This likely represents an imaging disparity rather than an additional stone. Labs are notable for JEFFREY. A UA is negative. PMH: 1) HTN 2) HLD 3) AF 4) VT - Defibrillator - the pt developed VT one year prior leading to a syncopal episode. He awoke spontaneously and did not require CPR. He underwent an extensive workup at both [place] and [facility] and subsequently had a defibrillator placed at [place]. 5) Renal calculus 2003 - passed spontaneously 6) The pt reports an equivocal stress test which was followed by a cardiac cath showing no significant coronary disease 2018. Surgical: Defibrillator 2018 Social: Does not smoke, 1-2 glasses of home made wine HS, avid jogger, manages a hardware store Family: Mother at age 90 CHF Father - CAD/MA Principal Diagnosis no Discharge Data Allergies Allergy/AdvReac Type Severity Reaction Status Date / Time levofloxacin Allergy Unknown DIFFICULTY Verified 05/04/18 01:35 WALKING triamcinolone Allergy Unknown BLEEDING Verified 05/04/18 01:35 Consultations 05/04/18 03:14 ED Decision to Admit Stat 05/04/18 05:58 Consult Urology Routine Procedures Performed Operation Date: 05/05/18 12:00 Actual Procedures p Cystoscopy, Left retrograde pyleogram, Left Stent Insertion(Left) - Nahun Renner II, DO Ordered Studies 05/04/18 01:17 US renal/blad retro comp Stat 05/05/18 11:38 FL retrograde includes kub Routine Hospital Course (1) Kidney stone: (2) HTN (hypertension): 63 y/o M Hx VT, HTN, HLD, BPH, nephrolithiasis admitted on 04/29 with Kidney stone asso with L flank pain Kidney stone with 4mm ureteral calculus. Urology saw patient, cystoscopy was done Has been on IV fluid, pain control, Flomax Continue on ceftriaxone, JEFFREY upon admission, improved/resolved HTN, mild elevated upon discharge today, has told him to follow-up with PCP hx of VT - cont Metoprolol Advised patient to follow-up with urology as instructed Full code - SCDs Subjective upon discharge no more left-sided kidney pain, however has mild dysuria, Currently no fever and chill, no nausea vomiting Review of Systems upon discharge Constitutional: negative weakness, or fatigue Respiratory: no cough, sputum, wheezing, or dyspnea on exertion Cardiac: No chest pain, No orthopnea, No PND, No claudication, No palpitations, Abdomen: See above Musculoskeletal: No joint pain, No muscle pain, No swelling, : No dysuria, No urinary frequency, No incontinence, No hematuria Neurologic: No paralysis, No weakness, No numbness/tingling, Psychiatric: No depression symptoms, No anhedonism, No anxiety, Heme: No abnormal bleeding/bruising, No clotting problems, N Skin: No rash, No itch, No new/changing skin lesions, No color change, No bleeding Physical Exam at discharge General Appearance: Mild anxious, reported pain need to be controlled with pain medicine every 3- 4 hours , WD/WN, no apparent distress, Eyes: normal inspection, PERRL, EOMI, sclerae normal ENT: normal ENT inspection, hearing grossly normal, pharynx normal Neck: supple, no adenopathy, thyroid normal, no JVD, no carotid bruits, trachea midline Respiratory/Chest: chest non-tender, normal breath sounds, no respiratory distress, no accessory muscle use, rales, wheezing Cardiovascular: regular rate, rhythm, no JVD, no murmur Abdomen: Left CVA neg tenderness , normal bowel sounds, non tender, soft, no organomegaly, Extremities: normal range of motion, non-tender, normal inspection, no pedal edema, no calf tenderness, normal capillary refill, pelvis stable, 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 Total Time Total Time Spent Total Time Spent (In Minutes): 31 Total Time Includes: Examination of the Patient, Discharge Planning, Medication Reconciliation and Communication With Other Providers Discharge Plan Discharge Items Patient Disposition: Home - Self-Care Reason For Visit: OBSTRUCTING CALCULUS Discharge Diagnosis: Obstructing Left Ureteral Stone Discharge Goals: Decrease discomfort, Diagnostic testing, Improve disease control, Improve function, Increase independence, Improve nutritional status, Learn about illness, Prevent disease, Specific goals and Therapeutic intervention Activity: Resume your previous activity Non-emergency contact: Primary Care Provider and Urologist Call non-emergency contact if: you have any medication questions Follow-up/Referrals: Christiano Myers MD [Primary Care Provider] - Diet: Regular Addtl Provider Instructions: you have Obstructing Left Ureteral Stone s/p Cystoscopy with left stent placement and retrograde pyelogram. you have acute kidney injury, resolved f/u dr. Nahun Renner as instructed you need to follow up with your primary care physician in 1 week, - take medication as instructed, never overdose or any misuse, or take with alcohol, because misuse of medicine may cause organ damage or , call me, or your primary care physician if have questions of discharge medicaitons. - call your primary care physician, or go to local emergency room if has any fever/chill, chest pain, shortness of breathing, nausea/vomiting/abdominal pain, facial droop/slurry speech/local weakness, or if has any questions. - fall precaution - diet as instructed - you need to follow up with your subspecialist, such as Dr. Nahun Renner as instructed Prescriptions: New phenazopyridine [Pyridium] 100 mg Tablet 100 mg PO BID PRN (Reason: dysuria) 3 Days Qty: 6 RF: 0 cephalexin [Keflex] 500 mg capsule 500 mg PO Q6H 10 Days Qty: 40 RF: 0 Continued atorvastatin 10 mg tablet 10 mg PO QPM RF: 0 metoprolol succinate 100 mg tablet extended release 24 hr 100 mg PO QAM RF: 0 amlodipine 5 mg tablet 5 mg PO QAM RF: 0 valsartan 320 mg tablet 320 mg PO DAILY RF: 0 aspirin 81 mg Tablet,Delayed Release (Dr/Ec) 81 mg PO DAILY RF: 0 ascorbic acid (vitamin C) [Vitamin C] 500 mg Tablet 500 mg PO DAILY RF: 0 cholecalciferol (vitamin D3) [Vitamin D3] 1,000 unit Capsule 1,000 units PO DAILY RF: 0 [place] [id number] mg Capsule 1 cap PO DAILY RF: 0 tamsulosin 0.4 mg capsule 0.4 mg PO DAILY Qty: 20 RF: 0 ondansetron 4 mg tablet,disintegrating 4 mg PO Q6H PRN (Reason: nausea and vomiting) Qty: 10 RF: 0 oxycodone 5 mg tablet 5 mg PO Q6H PRN (Reason: pain) Qty: 12 RF: 0 naproxen 250 mg tablet 250 mg PO BID Qty: 14 RF: 0 Discontinued sulfamethoxazole-trimethoprim 800-160 mg tablet 1 tab PO BID RF: 0 Stand-Alone Forms: Call Back Authorization, [facility]/Other Patient Handouts: Stents Ureteral, Kidney Stones Prevent Discharge Orders: Discharge Order (Routine); Ordered 05/06/18 Ordered By: Daron Reyes Admission Data Admit Date/Time: 05/04/18 04:37 Attending Provider: Daron Reyes Admit Provider: Satinder Pino Primary Care Provider: Christiano Myers Other Providers: Satinder Pino ; Festus Travis I. Service: Medical Other Interventions: Discharge Summary Assessment (RN) Last Done: 05/06/18 15:18 DC Date/Time DO NOT enter until pt leaves facility: 05/06/18 16:10
--- NOTE | 2018-05-09 12:28 | Coding Query ---
CODING QUERY To promote full compliance with coding requirements relating to patient care, provider participation is requested in all cases of taper machine uncertainty. Please assist us with the question(s) below: Please clarify the meaning of JEFFREY. JEFFREY is not a valid abbreviation. Thank you. ( x ) Acute Kidney Injury ( ) Acute Kidney Insufficiency ( ) Other (Specify): Principal Diagnosis: "that condition established after study, to be chiefly responsible for occasioning the admission of the patient to the hospital for care." Co-Existing Principal Diagnosis: "when two or more diagnoses equally meet the criteria for principal diagnosis as determined by the circumstances of admission, diagnostic work up, and/or therapy provided, and the Alphabetic Index, Tabular List, or another coding guideline does not provide sequencing direction, any one of the diagnoses may be sequenced first." "When the physician has documented what appears to be a current diagnosis in the body of the record, but has not included the diagnosis in the final diagnostic statement, the physician should be asked whether the diagnosis should be added." (Source [facility]oding [facility] 2 QTR90. p3-4) PAUL
== END 2018-05-06 16:10 | disposition home or self-care (01) | DRG 661 ==
LOC: ED 01:01 → SUATTDRO 04:37 → 3N 04:37

== ENCOUNTER 2018-06-15 01:28 | Inpatient (IN) ==
--- NOTE | 2018-06-14 16:03 | History & Physical Report ---
Date of Service June 14, 2018 Assessment & Plan (1) S/P ureteral stent placement: (2) Acute UTI: (3) Dysuria: - Admit to med surg - Urology consulted - Dr. Renner - Timeline of events per HPI - U/S retroperitoneal to assess for possibly hydronephrosis or pyelonephrosis, and L ureteral stent placement - Check UA and culture - last culture from 06/13/18 growing gram negative rods, follow for sensitivities - Failed outpatient tx on Keflex started on 06/11 after stent placement, was started on bactrim on 06/13 after ER visit, however took this x 1 day and persisted with intermittent fevers - Start IV imipenum and vancomycin - Follow cbc, labs upon ER visit yesterday showed leukocytosis, 15K, follow am labs - May continue percocet Q6H prn pain (last dose early this morning), toradol 30 mg Q6H prn. - Continue flomax and pyridium (4) Atrial fibrillation with rapid ventricular response: - Hx of such - Currently in NSR - follows closely with [facility] for cardiology s/p episode of vtach and ICD implantation in June 2017. - Obtain EKG 12 lead for completeness (5) HTN (hypertension): - Well controlled, continue on amlodipine 5 mg QAM, metoprolol succinate 100 mg QAM, valsartan 320 mg QAM (6) Hx of ventricular tachycardia: - Stable, as above. (7) Single implantable cardioverter-defibrillator (ICD) in situ: - Set to deploy at 225 bmp (8) DVT prophylaxis: -teds, scds, lovenox pending Cr. function otherwise heparin History of Present Illness Primary Care Provider: Hever Myers MD This is a 63 yo M with PMHx of HTN, recurrent hypokalemia associated with ventricular tachycardia and syncope, CAD s/p ICD insertion on 06/12/2017, who presents after recent L ureteral stone extraction and stent placement with persistent fever. Pt underwent left ureteronephroscopy with laser lithotripsy, extraction of stone, retrograde pyelogram, and exchange of the left stent on 06/11/[address] Renner. Mr. Melara was initially found to have L nephrolithiasis 04/29/18, treated with supportive care and antibiotics. Pt later developed fever and thus was admitted to our facility from 05/04/18-05/06/18 for IV antibiotic and left stent placement, a 1 cm stone above the L UPJ was identified. He then underwent lithotripsy on 05/11/18. At outpatient follow up with urology on 05/23/18, the patient still retained a 4 mm stone upon KUB after lithotripsy. Therefore was set up for stone extraction and stent exchange which occurred on 06/11/18. The procedure was tolerated well, and was sent home with Keflex 500 mg BID x . The patient presented to the ER on 06/13/18 due to fever of 101.3, chills and sweats. Keflex was changed to Bactrim for urine culture growing out gram negative bacilli. Pt has continued to have fever despite antibiotics, therefore was directly admitted to [facility] for intravenous antibiotics. Allergies Allergy/AdvReac Type Severity Reaction Status Date / Time levofloxacin Allergy Unknown DIFFICULTY Verified 06/13/18 15:18 WALKING triamcinolone Allergy Unknown BLEEDING Verified 06/13/18 15:18 Home Medications Home Medications Medication Instructions Recorded Confirmed Type [place] 1 cap PO .HOLD 04/29/18 06/14/18 History amlodipine 5 mg PO QAM 04/29/18 06/14/18 History ascorbic acid (vitamin C) [Vitamin 500 mg PO . HOLD 04/29/18 06/14/18 History C] aspirin 81 mg PO . HOLD 04/29/18 06/14/18 History atorvastatin 10 mg PO QPM 04/29/18 06/14/18 History cholecalciferol (vitamin D3) 1,000 units PO .HOLD 04/29/18 06/14/18 History [Vitamin D3] metoprolol succinate 100 mg PO QAM 04/29/18 06/14/18 History valsartan 320 mg PO QAM 04/29/18 06/14/18 History naproxen 250 mg PO . HOLD PRN 05/09/18 06/14/18 History oxycodone-acetaminophen [Percocet] 1 tab PO Q6H PRN #20 tab 05/11/18 06/14/18 Rx tamsulosin 0.4 mg PO HS 06/04/18 06/14/18 History sulfamethoxazole-trimethoprim 1 tab PO BID 3 Days #6 tab 06/13/18 06/14/18 Rx [Bactrim DS] Pyridium 06/14/18 History Past Med/Surg History Social History Communication Ability: Effective Document Examiner Required: No Beliefs That Will Affect Care: None Current Living Situation: Spouse Other Information That Helps Us Care for You: No Feels Safe at Home: Yes Safety Concerns: Feels Safe At This Time Smoking Status: Never smoker Hx Alcohol Use: Yes Hx Substance Use: No Review of Systems Constitutional: +fever, sweats and chills Eyes: No diplopia, no worsening or blurred vision ENT: normal hearing, no trouble swallowing Respiratory: No cough, sputum, dyspnea at rest or on exertion Cardiovascular: No chest pain, tightness or palpitations Abdomen:+ left flank pain and low back pain, + poor appetite, no nausea, vomiting, diarrhea or constipation Musculoskeletal: No joint pain, calf pain, swelling Neurologic: No weakness, numbness/tingling, or balance problems Psychiatric: No anxiety or depression Skin: No rash or itch Physical Exam Vital Signs (Past 24 Hours): Last Vital Signs Temp 37.8 C H 06/14/18 15:39 Resp 16 06/14/18 15:39 Pulse Ox 91 06/14/18 15:39 Physical Exam: General: awake, alert, no apparent distress Head: Normocephalic, atraumatic ENT: PERRL, EOMI, no pharyngeal exudate, mucous membranes moist Chest: Clear to auscultation, on room air, no adventitious breath sounds Cardiac: Regular rate and rhythm, no murmur, no JVD, normal peripheral pulses, good capillary refill Abdominal: NABS x 4 quadrants, + pain in L flank and L low back, no CVA tenderness. Otherwise abd nontender to palpation, no rebound, guarding or tenderness Extremities: Normal inspection, no peripheral edema or erythema, calfs nontender to palpation Neuro: AAO x 3, strength intact bilaterally and related 5/5, no motor deficits, speech is clear, no peripheral sensory deficits Code Status & VTE Plan Code Status Full
[2018-06-14] MEDS: SODIUM CHLORIDE 0.9% 1000ML 1,000 ML IV SCH (17:31)
--- NOTE | 2018-06-14 17:45 | Ultrasound Report ---
EXAMINATION: RENAL ULTRASOUND CLINICAL HISTORY: Left ureteral stent. Evaluate for hydronephrosis. COMPARISON STUDY: May 04, 2018 FINDINGS: The right kidney measures 12.3 cm. The left kidney measures 13.4 cm. There is no significa nt hydronephrosis. A left-sided nephroureteral stent is visualized. There is a 4 mm upper pole right renal cyst. A 2 mm echogenic nonshadowing focus within the right kidney, likely represents a vascula r reflector Neither ureteral jet was visualized. A nephroureteral stent was delineated IMPRESSION : 1. Indwelling left-sided neck ureteral stent 2. No evidence of significant hydronephrosis. Electronically signed by: Bernard Dela Cruz M.D. 06/14/2018 5:43 PM
[2018-06-14 18:01] LABS: Appearance Urine Slightly Cloudy (Clear); Color Urine Orange
[2018-06-14 18:02] LABS: Protein Urine Negative (Negative); Specific Gravity Urine 1.021 (1.000-1.060)
[2018-06-14 18:04] LABS: Epithelial Cell Urine 0-5 /lpf (0-5); Hyaline Casts Urine 0-5 /lpf (0-5)
[2018-06-14 18:05] LABS: Bacteria Urine Negative (Negative)
[2018-06-14] MEDS: TAMSULOSIN HCL 0.4 MG CAP PO SCH (21:04)
[2018-06-14] MEDS: PHENAZOPYRIDINE HCL 200 MG TAB PO SCH (21:05)
[2018-06-14] MEDS: ATORVASTATIN 10 MG TAB PO SCH (21:05)
[2018-06-14] MEDS: IMIPENEM/CILASTATIN SODIUM 400 MG in DEXTROSE 5% 100 ML IV SCH (23:32)
[~2018-06-15 01:28] MED LIST changes: -AMLO10TA2 PO; -ASCA500 PO; -ASPI-320 PO; -ATOR10TA82 PO; +IMIPENEM/CILASTATIN SODIUM 500 MG in DEXTROSE 5% 100 ML IV ONE; -METO50TA16 PO; -MULT-506 PO; +NAPROXEN 250 MG TAB PO PRN; -OMEG10007 PO; +ONDANSETRON INJ 2 MG/ML 2 ML VIAL IV PRN; +OXYCODONE/APAP 7.5/325MG TAB PO PRN; -POTA10CA28 PO; -VALS320T PO; +VANCOMYCIN CONSULT ACTIVE PRN; +VANCOMYCIN HCL 1,000 MG in SODIUM CHLORIDE 0.9% 250 ML IV SCH; +VIT C S CHERRY CELERY GRAPE SD PO SCH; +cefTRIAXone SODIUM 1,000 MG in DEXTROSE 5% 50 ML IV SCH
[2018-06-15] MEDS: SODIUM CHLORIDE 0.9% 1000ML 1,000 ML IV SCH ×2 (03:44→12:16)
[2018-06-15] MEDS: ACETAMINOPHEN 325 MG TAB PO PRN ×3 (03:49→23:51)
[2018-06-15] MEDS: IMIPENEM/CILASTATIN SODIUM 400 MG in DEXTROSE 5% 100 ML IV SCH ×3 (05:20→18:01)
[2018-06-15 05:50] LABS: Hemoglobin 11.7 g/dL (14.0-18.0); Mean Corpuscular Hgb Conc 34.4 g/dL (32-36); Mean Corpuscular Volume 88.8 fL (80-100); Mean Platelet Volume 9.6 fL (7.4-10.4); Platelet Count 113 K/uL (130-400); RDW Coefficient of Variation 14.2 % (11.5-14.5); RDW Standard Deviation 46.5 fL (36.4-46.3); Red Blood Count 3.83 M/uL (4.7-6.1)
[2018-06-15 06:26] LABS: Albumin Level 2.4 gm/dl (3.4-5.0); BUN Creatinine Ratio 15.1 (10-20); Creatinine Clr Calc Pharmacy 57.9 ml/min; Est GFR (African American) 64.3; Est GFR (Non-African American) 55.5; Potassium 3.7 mmol/L (3.5-5.1)
[2018-06-15 06:29] LABS: Albumin Globulin Ratio 0.8 (0.9-2); Bilirubin,Total 1.9 mg/dl (0.2-1); Globulin 3.2 gm/dl (2.5-4.0); Total Protein 5.6 gm/dl (6.4-8.2)
[2018-06-15] MEDS: PHENAZOPYRIDINE HCL 200 MG TAB PO SCH ×3 (08:33→21:11)
[2018-06-15] MEDS: METOPROLOL SUCC 50MG EXT REL TAB PO SCH (08:33)
[2018-06-15] MEDS: VALSARTAN 80 MG TAB PO SCH (08:33)
[2018-06-15] MEDS: AMLODIPINE BESYLATE 5 MG TAB PO SCH (08:33)
[2018-06-15] MEDS ORDERED: ASPIRIN 81 MG ECTAB PO SCH (09:00)
[2018-06-15] MEDS ORDERED: CHOLECALCIFEROL 1,000 UNITS TAB PO SCH (09:00)
[2018-06-15] MEDS ORDERED: ASCORBIC ACID 500 MG TAB PO SCH (09:00)
--- NOTE | 2018-06-15 10:46 | Urology Progress Note ---
Date of Service June 15, 2018 Assessment & Plan (1) S/P ureteral stent placement: Stent in good position. Will defer to primary team for outpatient antibiotic management due to pseudomonas infection with quinolone allergy. Will arrange outpatient stent pull next week with Dr. Renner. Thanks for allowing us to participate in the care of this patient. Please contact our service with any additional questions/concerns. (2) Acute UTI: Subjective 63YO male POD #4 s/p cysto, L ureteroscopy, laser litho, stent exchange with fevers. Patient was placed on Keflex post op, and reported to the ER on Monday for persistent fever with Tylenol. His antibiotic was changed to Bactrim. He called outpatient URO office with fevers >102F still persisting and was advised to report to hospital for observation/admission, suspected pyelo. He remains on imipenem. UC&S prelim positive pseudomonas. Renal US upon arrival demonstrates stent in good position. Patient reports feeling okay this morning. Still experiencing intermittent fever with associated headache. No nausea/vomiting. Stent tolerable +mild dysuria. Physical Exam Vital Signs (Past 24 Hours): Last Vital Signs Temp 37.5 C 06/15/18 07:08 Pulse 68 06/15/18 07:08 Resp 16 06/15/18 07:08 BP 156/82 H 06/15/18 07:08 Pulse Ox 95 06/15/18 07:08 Physical Exam: WN/WD NAD. Resp effort normal. No JVD, no edema. Abd soft, nontender. A&O x3, appropriate affect.
[2018-06-15] MEDS ORDERED: CALCIUM CARBONATE 500 MG CHEWABLE TAB PO ONE (11:09)
[2018-06-15] MEDS: KETOROLAC 30 MG/ML VIAL IV PRN (16:11)
[2018-06-15] MEDS: TAMSULOSIN HCL 0.4 MG CAP PO SCH (21:11)
[2018-06-15] MEDS: ATORVASTATIN 10 MG TAB PO SCH (21:11)
[2018-06-16] MEDS: IMIPENEM/CILASTATIN SODIUM 400 MG in DEXTROSE 5% 100 ML IV SCH ×3 (00:15→12:01)
[2018-06-16] MEDS: KETOROLAC 30 MG/ML VIAL IV PRN ×2 (01:18→12:04)
[2018-06-16 07:07] LABS: Hematocrit (blood only) 34.4 % (42-52); Hemoglobin 11.7 g/dL (14.0-18.0); Mean Corpuscular Volume 88.9 fL (80-100); Mean Platelet Volume 9.7 fL (7.4-10.4); Platelet Count 120 K/uL (130-400); RDW Coefficient of Variation 14.1 % (11.5-14.5); RDW Standard Deviation 45.9 fL (36.4-46.3); Red Blood Count 3.87 M/uL (4.7-6.1); White Blood Count 10.81 K/uL (4.8-10.8)
[2018-06-16 07:40] LABS: Albumin Globulin Ratio 0.6 (0.9-2); Albumin Level 2.2 gm/dl (3.4-5.0); BUN Creatinine Ratio 14.7 (10-20); Bilirubin,Total 1.1 mg/dl (0.2-1); Calcium 8.4 mg/dl (8.5-10.1); Creatinine Clr Calc Pharmacy 78.1 ml/min; Est GFR (African American) 92.4; Est GFR (Non-African American) 79.7; Globulin 3.6 gm/dl (2.5-4.0); Total Protein 5.8 gm/dl (6.4-8.2)
[2018-06-16] MEDS: VALSARTAN 80 MG TAB PO SCH (10:00)
[2018-06-16] MEDS: AMLODIPINE BESYLATE 5 MG TAB PO SCH (10:01)
[2018-06-16] MEDS: METOPROLOL SUCC 50MG EXT REL TAB PO SCH (10:01)
[2018-06-16] MEDS: PHENAZOPYRIDINE HCL 200 MG TAB PO SCH ×3 (10:01→20:55)
--- NOTE | 2018-06-16 11:15 | Urology Progress Note ---
Date of Service June 16, 2018 Assessment & Plan (1) S/P ureteral stent placement: seems to be progressing appropriately cont abx - outpt f/u for stent management Subjective feels that he has progressed considerably today - sweats overnight Physical Exam Vital Signs (Past 24 Hours): Last Vital Signs Temp 37.0 C 06/16/18 07:10 Pulse 56 L 06/16/18 07:10 Resp 16 06/16/18 07:10 BP 149/76 H 06/16/18 07:10 Pulse Ox 94 06/16/18 07:10 Physical Exam: NAD AAOx3 no resp distress rrr abd soft, non-tender
--- NOTE | 2018-06-16 16:43 | Hospitalist Progress Note ---
Date of Service June 15, 2018 Assessment & Plan (1) S/P ureteral stent placement: (2) Acute UTI: (3) Dysuria: - Admit to med surg - Urology consulted - Dr. Renner - Timeline of events per HPI - U/S retroperitoneal to assess for possibly hydronephrosis or pyelonephrosis, and L ureteral stent placement - Check UA and culture - last culture from 06/13/18 growing gram negative rods, follow for sensitivities - Failed outpatient tx on Keflex started on 06/11 after stent placement, was started on bactrim on 06/13 after ER visit, however took this x 1 day and persisted with intermittent fevers - Start IV imipenum and vancomycin -Cultures show pseudomonas, it appears to be pansensitive -will likely switch patient to PO FQ once he is afebrile. -Patient however 15 years ago did present with tendionopathy from levaquin. -Will continue current antibiotic until patient is afebrile. -FQ induced tendinopathy usually occurs in longer courses , more than 7 days. -Due to repeat dosing of IV drugs, patient is willing to try cipro as an outpatient but will stop if he becomes symptomatic. - May continue percocet Q6H prn pain (last dose early this morning), toradol 30 mg Q6H prn. - Continue flomax and pyridium (4) Atrial fibrillation with rapid ventricular response: - Hx of such - Currently in NSR - follows closely with Devika for cardiology s/p episode of vtach and ICD implantation in June 2017. - Obtain EKG 12 lead for completeness (5) HTN (hypertension): - Well controlled, continue on amlodipine 5 mg QAM, metoprolol succinate 100 mg QAM, valsartan 320 mg QAM (6) Hx of ventricular tachycardia: - Stable, as above. (7) Single implantable cardioverter-defibrillator (ICD) in situ: - Set to deploy at 225 bmp (8) DVT prophylaxis: -teds, scds, lovenox pending Cr. function otherwise heparin Spent 35 minutes in management of patient. Subjective Patient continues to report some fever chillls. Patient also continues to have dysuria. Review of Systems All systems reviewed & are unremarkable except as noted in HPI & below Physical Exam Vital Signs (Past 24 Hours): Last Vital Signs Temp 37.8 C 06/15/18 15:16 Pulse 67 04/12/19 15:16 Resp 17 06/15/18 15:16 BP 144/80 06/15/18 15:16 Pulse Ox 91 06/15/18 15:16 Physical Exam: General: awake, alert, no apparent distress Head: Normocephalic, atraumatic ENT: PERRL, EOMI, no pharyngeal exudate, mucous membranes moist Chest: Clear to auscultation, on room air, no adventitious breath sounds Cardiac: Regular rate and rhythm, no murmur, no JVD, normal peripheral pulses, good capillary refill Abdominal: NABS x 4 quadrants, no CVA tenderness. Otherwise abd nontender to palpation, no rebound, guarding or tenderness Extremities: Normal inspection, no peripheral edema or erythema, calfs nontender to palpation Neuro: AAO x 3, strength intact bilaterally and related 5/5, no motor deficits, speech is clear, no peripheral sensory deficits
[2018-06-16] MEDS ORDERED: PIPERACILL/TAZOBAC CONSULT ACTIVE PRN (16:44)
--- NOTE | 2018-06-16 16:46 | Hospitalist Progress Note ---
Date of Service June 16, 2018 Assessment & Plan (1) S/P ureteral stent placement: (2) Acute UTI: (3) Dysuria: - Admit to med surg - Urology consulted - Dr. Renner - Timeline of events per HPI - U/S retroperitoneal to assess for possibly hydronephrosis or pyelonephrosis, and L ureteral stent placement - Check UA and culture - last culture from 06/13/18 growing gram negative rods, follow for sensitivities - Failed outpatient tx on Keflex started on 06/11 after stent placement, was started on bactrim on 06/13 after ER visit, however took this x 1 day and persisted with intermittent fevers - Started IV imipenum and vancomycin Now on imipenem, will switch to zosyn. -Cultures show pseudomonas, it appears to be pansensitive -will likely switch patient to PO FQ once he is afebrile. -Patient however 15 years ago did present with tendionopathy from levaquin. -Will continue current antibiotic until patient is afebrile. -FQ induced tendinopathy usually occurs in longer courses , more than 7 days. -Due to bid or TID dosing of IV drugs, patient is willing to try cipro as an outpatient but will stop if he becomes symptomatic. Patient will also likely require only a 5 day course of FQ, this will lower chance of FQ tendinopathy. - May continue percocet Q6H prn pain (last dose early this morning), toradol 30 mg Q6H prn. - Continue flomax and pyridium Held discharge on 06/16 as he remains febrile on 06/15. Waiting for 24 hour period of patient being afebrile (4) Atrial fibrillation with rapid ventricular response: - Hx of such - Currently in NSR - follows closely with Devika for cardiology s/p episode of vtach and ICD implantation in June 2017. - Obtain EKG 12 lead for completeness (5) HTN (hypertension): - Well controlled, continue on amlodipine 5 mg QAM, metoprolol succinate 100 mg QAM, valsartan 320 mg QAM (6) Hx of ventricular tachycardia: - Stable, as above. (7) Single implantable cardioverter-defibrillator (ICD) in situ: - Set to deploy at 225 bmp (8) DVT prophylaxis: -teds, scds, lovenox pending Cr. function otherwise heparin Spent 25 minutes in management of patient. Subjective Patient has a fever overninght. Patient today though feels significantly better. And he is close to his baseline. Review of Systems All systems reviewed & are unremarkable except as noted in HPI & below Physical Exam Vital Signs (Past 24 Hours): Last Vital Signs Temp 37.3 C 06/16/18 15:06 Pulse 58 L 06/16/18 15:06 Resp 20 06/16/18 15:06 BP 156/94 H 06/16/18 15:06 Pulse Ox 93 06/16/18 15:06
[2018-06-16] MEDS: PIPERACILLIN/TAZOBACTAM 3.375 GM in DEXTROSE 5% 100 ML IV SCH (18:41)
[2018-06-16] MEDS: TAMSULOSIN HCL 0.4 MG CAP PO SCH (20:55)
[2018-06-16] MEDS: ATORVASTATIN 10 MG TAB PO SCH (20:55)
[2018-06-17] MEDS: PIPERACILLIN/TAZOBACTAM 3.375 GM in DEXTROSE 5% 100 ML IV SCH (01:49)
[2018-06-17 06:22] LABS: Hematocrit (blood only) 33.6 % (42-52); Hemoglobin 11.6 g/dL (14.0-18.0); Mean Corpuscular Hgb Conc 34.5 g/dL (32-36); Mean Platelet Volume 9.2 fL (7.4-10.4); Platelet Count 130 K/uL (130-400); RDW Coefficient of Variation 13.9 % (11.5-14.5); RDW Standard Deviation 44.8 fL (36.4-46.3); Red Blood Count 3.82 M/uL (4.7-6.1); White Blood Count 7.98 K/uL (4.8-10.8)
[2018-06-17 06:52] LABS: Albumin Level 2.2 gm/dl (3.4-5.0); BUN Creatinine Ratio 14.9 (10-20); Calcium 8.3 mg/dl (8.5-10.1); Creatinine Clr Calc Pharmacy 79.7 ml/min; Est GFR (African American) 94.7; Est GFR (Non-African American) 81.7; Potassium 3.8 mmol/L (3.5-5.1)
[2018-06-17 06:55] LABS: Albumin Globulin Ratio 0.6 (0.9-2); Bilirubin,Total 1.1 mg/dl (0.2-1); Globulin 3.6 gm/dl (2.5-4.0); Total Protein 5.8 gm/dl (6.4-8.2)
[2018-06-17] MEDS: VALSARTAN 80 MG TAB PO SCH (08:54)
[2018-06-17] MEDS: METOPROLOL SUCC 50MG EXT REL TAB PO SCH (08:54)
[2018-06-17] MEDS: AMLODIPINE BESYLATE 5 MG TAB PO SCH (08:54)
[2018-06-17] MEDS: PHENAZOPYRIDINE HCL 200 MG TAB PO SCH (08:54)
--- NOTE | 2018-06-17 15:23 | Discharge Summary ---
Date of Service June 17, 2018 Admission HPI Per Admitting Provider This is a 63 yo M with PMHx of HTN, recurrent hypokalemia associated with ventricular tachycardia and syncope, CAD s/p ICD insertion on 06/12/2017, who presents after recent L ureteral stone extraction and stent placement with persistent fever. Pt underwent left ureteronephroscopy with laser lithotripsy, extraction of stone, retrograde pyelogram, and exchange of the left stent on 06/11/[address] Renner. Mr. Melara was initially found to have L nephrolithiasis 04/29/18, treated with supportive care and antibiotics. Pt later developed fever and thus was admitted to our facility from 05/04/18-05/06/18 for IV antibiotic and left stent placement, a 1 cm stone above the L UPJ was identified. He then underwent lithotripsy on 05/11/18. At outpatient follow up with urology on 05/23/18, the patient still retained a 4 mm stone upon KUB after lithotripsy. Therefore was set up for stone extraction and stent exchange which occurred on 06/11/18. The procedure was tolerated well, and was sent home with Keflex 500 mg BID x . The patient presented to the ER on 06/13/18 due to fever of 101.3, chills and sweats. Keflex was changed to Bactrim for urine culture growing out gram negative bacilli. Pt has continued to have fever despite antibiotics, therefore was directly admitted to [facility] for intravenous antibiotics. Admission Exam Per Admitting Provider General: awake, alert, no apparent distress Head: Normocephalic, atraumatic ENT: PERRL, EOMI, no pharyngeal exudate, mucous membranes moist Chest: Clear to auscultation, on room air, no adventitious breath sounds Cardiac: Regular rate and rhythm, no murmur, no JVD, normal peripheral pulses, good capillary refill Abdominal: NABS x 4 quadrants, + pain in L flank and L low back, no CVA tenderness. Otherwise abd nontender to palpation, no rebound, guarding or tenderness Extremities: Normal inspection, no peripheral edema or erythema, calfs nontender to palpation Neuro: AAO x 3, strength intact bilaterally and related 5/5, no motor deficits, speech is clear, no peripheral sensory deficits Principal Diagnosis UTI, pseudomonas Discharge Exam Constitutional WD/WN, vitals as above Eyes PERRL, conjunctivae normal, anicteric sclerae ENMT external ear and nose normal, oropharynx normal Neck trachea midline, no thyromegaly Respiratory normal respiratory effort, lungs clear to auscultation Cardiovascular RRR, no murmur, no edema Gastrointestinal (Abdomen) normal bowel sounds, soft, nontender, no hepatosplenomegaly Musculoskeletal no cyanosis or clubbing, extremities motor strength 5/5 Skin no rashes, warm and dry Neurologic patellar DTR's 2+ bilat, sensation intact and PERRL, EOMI, accommodation nl, no face palsy, no dysarthria Psychiatric A+Ox3, euthymic affect Lymphatic no cervical or axillary lymphadenopathy Discharge Data Allergies Allergy/AdvReac Type Severity Reaction Status Date / Time levofloxacin Allergy Unknown DIFFICULTY Verified 06/13/18 15:18 WALKING triamcinolone Allergy Unknown BLEEDING Verified 06/13/18 15:18 Consultations 06/14/18 15:46 Consult Urology Routine 06/14/18 15:50 Consult Case Management - Discharge Planning Routine Ordered Studies 06/14/18 16:18 US renal/blad retro comp Stat Hospital Course (1) S/P ureteral stent placement: no pain associated with the stent to be removed on 06/[address] Redman (2) Acute UTI: urine culture grew Pseudomonas treated with Zosyn IV while admitted, no fever, WBC normal, no pain appetite now back after adequate treatment of infection oral options were Cipro or Levaquin discussed with patient as he reports having a bad reaction to Levaquin in the past described what sounded like tendinopathy discussed that we could place PICC and get home IV antibiotics he would rather try Cipro, will call his PCP if he has any side effects will only need a short course of Cipro 500mg BID for 5 more days (3) Dysuria: see above (4) Atrial fibrillation with rapid ventricular response: - Hx of such - Currently in NSR - follows closely with Devika for cardiology s/p episode of vtach and ICD implantation in June 2017. - Obtain EKG 12 lead for completeness HR controlled the remainder of the visit (5) HTN (hypertension): - Well controlled, continue on amlodipine 5 mg QAM, metoprolol succinate 100 mg QAM, valsartan 320 mg QAM (6) Hx of ventricular tachycardia: - Stable, as above. (7) Single implantable cardioverter-defibrillator (ICD) in situ: - Set to deploy at 225 bmp (8) DVT prophylaxis: -teds, scds Total Time Total Time Spent Total Time Spent (In Minutes): 35 minutes Total Time Includes: Examination of the Patient, Discharge Planning, Medication Reconciliation and Communication With Other Providers Discharge Plan Discharge Items Patient Disposition: Home - Self-Care Reason For Visit: SUSPECTED PYELO Discharge Diagnosis: UTI, recent ureteral stent Condition: Good Discharge Goals: Improve disease control and Therapeutic intervention Activity: Resume your previous activity Lifting: None Bathing: No limitations Sexual Activity: Wait until after follow-up appointment Exercise/Sports: Gradually increase as tolerated Driving/Machine Use: No limitations Non-emergency contact: Primary Care Provider and Urologist Call non-emergency contact if: you have any medication questions, your symptoms worsen, your pain is not controlled and you have a fever Follow-up/Referrals: Christiano Myesr MD [Primary Care Provider] - Diet: Heart Healthy Addtl Provider Instructions: Medications: - CIPROFLOXACIN: this is to treat Pseudomonas UTI, cultures show that it is sensitive to the Cipro as we discussed, this could cause some tendinopathy as you have experienced in the past the only alternative would be to use intravenous antibiotics as outpatient if you experience side effects you can contact Dr. Myers, discuss alternative treatment UTI in setting of ureteral stent stent comes out on Monday complete 5 more days of Ciprofloxacin, next dose due this evening if you have fever, increased pain then you should contact urology office Prescriptions: New ciprofloxacin HCl 500 mg tablet 500 mg PO Q12H Qty: 10 RF: 0 Continued atorvastatin 10 mg tablet 10 mg PO QPM RF: 0 metoprolol succinate 100 mg tablet extended release 24 hr 100 mg PO QAM RF: 0 amlodipine 5 mg tablet 5 mg PO QAM RF: 0 valsartan 320 mg tablet 320 mg PO QAM RF: 0 aspirin 81 mg Tablet,Delayed Release (Dr/Ec) 81 mg PO . HOLD RF: 0 ascorbic acid (vitamin C) [Vitamin C] 500 mg Tablet 500 mg PO . HOLD RF: 0 cholecalciferol (vitamin D3) [Vitamin D3] 1,000 unit Capsule 1,000 units PO .HOLD RF: 0 [place] [id number] mg Capsule 1 cap PO .HOLD RF: 0 naproxen 250 mg tablet 250 mg PO . HOLD PRN (Reason: Pain) RF: 0 oxycodone-acetaminophen [Percocet] 7.5-325 mg tablet 1 tab PO Q6H PRN (Reason: pain) Qty: 20 RF: 0 tamsulosin 0.4 mg capsule 0.4 mg PO HS RF: 0 Pyridium RF: 0 Stand-Alone Forms: [facility]/Other Patient Handouts: Ciprofloxacin Hydrochloride Oral tablet Discharge Orders: Discharge Order (Routine); Ordered 06/17/18 Ordered By: Christos Alan Admission Data Admit Date/Time: 06/15/18 01:28 Attending Provider: Christos Alan Admit Provider: Waqas Caraballo Primary Care Provider: Christiano Myers Other Providers: Nahun Renner II Service: Medical Other Interventions: Discharge Summary Assessment (RN) Last Done: 06/17/18 09:54 DC Date/Time DO NOT enter until pt leaves facility: 06/17/18 10:20
== END 2018-06-17 10:20 | disposition home or self-care (01) | DRG 690 ==
LOC: 3W → SUATTDRO 01:28

== ENCOUNTER 2023-03-16 09:32 | Inpatient (IN) ==
[2023-03-16 10:21] LABS: Basophils # (auto) 0.04 K/uL (0.00-0.20); Basophils % (auto) 0.3 %; Eosinophils # (auto) 0.06 K/uL (0.00-0.50); Eosinophils % (auto) 0.5 %; Hematocrit (blood only) 43.2 % (42.0-52.0); Hemoglobin 14.6 g/dl (14.0-18.0); Immature Granulocytes # (auto) 0.05 K/uL (0.01-0.20); Immature Granulocytes % (auto) 0.4 %; Lymphocytes # (auto) 1.23 K/uL (1.20-3.40); Lymphocytes % (auto) 9.3 %; Mean Corpuscular Hemoglobin 30.8 pg (25.0-34.0); Mean Corpuscular Hgb Conc 33.8 g/dL (32.0-36.0); Mean Corpuscular Volume 91.1 fL (80.0-100.0); Mean Platelet Volume 9.8 fL (9.4-12.4); Neutrophils # (auto) 10.71 K/uL (1.40-6.50); Neutrophils % (auto) 80.5 %; Platelet Count 194 K/uL (130-400); RDW Coefficient of Variation 12.2 % (11.5-14.5); Red Blood Count 4.74 M/uL (4.70-6.10); White Blood Count 13.29 K/ul (4.8-10.8)
[2023-03-16 10:46] LABS: Albumin Globulin Ratio 1.3 (0.9-2); Albumin Level 4.2 gm/dl (3.4-5.0); BUN Creatinine Ratio 22.1 (10-20); Bilirubin,Total 2.3 mg/dl (0.2-1.0); Calcium 9.8 mg/dl (8.6-10.3); Creatinine Clr Calc Pharmacy 57.5 ml/min; Est GFR (African American) 64.4 ml/min; Est GFR (Non-African American) 55.5 ml/min; Globulin 3.3 gm/dl (2.5-4.0); Potassium 3.7 mmol/L (3.5-5.1); Total Protein 7.5 gm/dl (6.0-8.3)
[2023-03-16 11:06] LABS: Influenza A virus by PCR Negative (Neg); Influenza B virus by PCR Negative (Neg); RSV by PCR Negative (Neg); SARS CoV2 RNA(COVID-19) Ceph NEGATIVE (Negative)
--- NOTE | 2023-03-16 12:05 | Emergency Department Note ---
Impression & Plan Diverticulitis of intestine with perforation and abscess, SBO (small bowel obstruction), Leukocytosis ED Provider Note HISTORY OF PRESENT ILLNESS: Patient is a 68-year-old male presenting with lower abdominal pain and cough. Patient reports that a week ago he started having a cough productive of white- green sputum. Reports low-grade fevers at home. Denies any chest pain or shortness of breath. He has been around someone who recently tested positive for COVID. He states that he called his primary doctor a week ago and they said that they would not start an antibiotic until he has had the symptoms for about a week or more. He states that his symptoms have not resolved in the last week. In the last 48 hours he has had lower abdominal pain and multiple episodes of vomiting in the last 24 hours. He denies any history of abdominal surgeries. Denies any dysuria but does report that his urine appears bloody. He describes the lower abdominal pain as a pressure sensation diffusely across his lower abdomen. Reports that he has had continued diarrhea for the last week. No recent antibiotic or steroid use. ROS: as above PHYSICAL EXAM: Constitutional: Patient appears in no acute distress. HENT: Head: Normocephalic and atraumatic. Eyes: EOMI, PERRL Mouth/Throat: Mucous membranes moist. Neck: Trachea midline. Neck supple. Cardiovascular: RRR, No murmurs, rubs or gallops. Intact distal pulses. Pulmonary/Chest: No respiratory distress. Breath sounds clear and equal bilaterally. No wheezes or rales. Abdominal: Abdomen soft, no tenderness, rebound or guarding. Musculoskeletal: No edema, tenderness or deformity noted. Skin: Warm and dry. No rash, erythema, pallor or cyanosis Psychiatric: Appropriate mood and affect for situation. Neurological: Alert and keenly responsive. CN II-XII grossly intact, moving all extremities equally and fully. MDM: - Vitals signs showed hypertension. - History obtained via patient. Patient presents with lower abdominal pain and cough. Patient reports a week ago he started having cough productive of white- green sputum. Reports low-grade fevers at home. Nuys any chest pain or shortness of breath. He states that over the last few days he has been having pain in his lower abdomen and multiple episodes of vomiting in the last 24 hours. He is also had diarrhea for the last week. Describes lower abdominal pain as a pressure sensation diffusely across his lower abdomen. Denies any abdominal surgical history. - Chronic conditions affecting care: HTN; HLD - Differential diagnoses include, but are not limited to: diverticulitis; small bowel obstruction; viral syndrome; cholecystitis; appendicitis; electrolyte abnormality; dehydration - Order placed for continuous cardiac monitoring. At this time, monitor showed rate of 55 bpm with normal sinus rhythm, per my interpretation. - External medical records reviewed. PCP note dated 09/12/2022 reviewed. Patient follows in their clinic for his hypertension hyperlipidemia. - Laboratory workup interpreted by myself showed leukocytosis (WBC 13.29) with left shift; stable electrolytes - UA negative for infection - CXR negative for pneumonia, per my interpretation - COVID/flu/RSV negative - CT abdomen/pelvis with IV contrast showed acute to subacute sigmoid diverticulitis with a contained perforation. Also noted to have small foci of extraluminal gas adjacent to the sigmoid colon and intramural abscesses are suspected. Also suspicious for developing fistula between the sigmoid colon and a loop of adjacent small bowel. Also noted to have a small bowel obstruction. - Discussed case with JAMARCUS Morel with general surgery service. Plans to come see patient. Recommends admission to medicine for IV antibiotics. No surgical interventions planned at this time, but will follow as consult. - IV zosyn ordered. - Discussion was had with care worker about patient's case and need for admission - Hospitalist consulted for admission - Patient admitted to [facility] hospitalist service for further evaluation and management. ASSESSMENT AND PLAN: Diagnosis: diverticulitis with perforation and abscess; small bowel obstruction; leukocytosis Plan: admit Past Med/Surg History Medical History (Updated 03/16/23 @ 14:24 by Lul Deleon DO) Encounter for pre-operative examination Hypokalemia Single implantable cardioverter-defibrillator (ICD) in situ Hx of ventricular tachycardia Myocardial fibrosis Seen on cardiac MRI, underlying etiology unclear. Preserved LV function. Defibrillator was placed due to this abnormality in the setting of sustained VT. Ventricular tachycardia H/o syncope prompted cardiac workup; "EP study showed triggered VT with multiple morphologies." S/P ICD implantation 06/2017. ICD (implantable cardioverter-defibrillator) in place 06/2017 - [facility] [place] - V. TACH - [employer] - FOLLOWS W/ DR. SINGH, has never been shocked. Was placed after unsuccessful ablation for vtach. Kidney stones Hyperlipemia Atrial fibrillation with rapid ventricular response pt denies hx a.fib HTN (hypertension) Surgical History History of removal of ureteral stent History of radiofrequency ablation (RFA) procedure for cardiac arrhythmia With EP mapping. Unsuccessful ablation. History of lithotripsy 05/2018 [facility] [place] cystoscopy with ureteral stent placement 05/2018 [facility] [place] History of colonoscopy History of cardiac cath 02/2017 X 2 FOR TACHYCARDIA (1ST TO CHECK FOR BLOCKAGES AND 2ND FOR POSSIBLE ABLATION FOR ARRHYTHMIA). UNABLE TO PERFORM ABLATION --> ICD PLACED 06/2017 H/O prostate biopsy Family History Father Diabetes 1.5, managed as type 1 Cardiac abnormality Aunt Family hx of colon cancer Colorectal cancer Other Family history non-contributory Denies family history of Ovarian cancer Prostate cancer Myocardial infarction Breast cancer Social History Smoking Status: Never smoker Second Hand Exposure: No; Do You Dip or Chew Tobacco: No; Hx Alcohol Use: Yes Alcohol type: wine Hx Substance Use: No Preferred Language: Ecuadorean Communication Ability: Effective Visual Impairment: No Limitations Hearing Ability: Normal Vehicle Window Tinter Required: No Beliefs That Will Affect Care: None marital status: Current Living Situation: Spouse current occupational status: retired Feels Safe at Home: Yes Childhood Exposure to Second-Hand Smoke: Yes Dental Care, Regularly: Yes Physical Activity Frequency: Daily Assistive Devices: Glasses Allergies Allergies Allergy/AdvReac Type Severity Reaction Status Date / Time levofloxacin Allergy Unknown DIFFICULTY Verified 11/02/22 16:22 WALKING triamcinolone Allergy Unknown Nose Bleeds Verified 11/02/22 16:22 Home Meds Home Medications Medication Instructions Recorded Confirmed aspirin 81 mg tablet,delayed 81 mg PO 3XWK 04/29/18 03/16/23 release vit C 30 mg-s.branch 250 mg-celery 1 cap PO DAILY 04/29/18 03/16/23 seed 75 mg-grape seed extrt capsule ([place]) acetaminophen 500 mg tablet 1,000 mg PO Q6H PRN Pain 08/14/18 03/16/23 (Tylenol Extra Strength) multivitamin (Daily Multi-Vitamin 1 tab PO QAM 04/14/20 03/16/23 tablet) ascorbic acid (vitamin C) 500 mg 500 mg PO QAM 09/22/20 03/16/23 tablet (Vitamin C) cholecalciferol (vitamin D3) 25 25 mcg PO QAM 09/22/20 03/16/23 mcg (1,000 unit) tablet (Vitamin D3) Previous Rx's Medication Instructions Recorded losartan 100 mg tablet 100 mg PO QAM #90 tabs 05/27/22 tamsulosin 0.4 mg capsule 0.4 mg PO DAILY #30 caps 11/02/22 atorvastatin 10 mg tablet 10 mg PO QPM #90 tabs 01/12/23 metoprolol succinate 100 mg 100 mg PO QAM #90 tabs 01/30/23 tablet,extended release 24 hr amlodipine 10 mg tablet 10 mg PO QAM #90 tabs 03/08/23 Results & Data (ED) Vital Signs Vital Signs - 24 hr 03/16/23 09:46 Temperature 36.8 C Temperature Source Temporal Artery Scan Pulse Rate 52 L Respiratory Rate 16 Respiratory Effort / Characteristics Non-Labored Respiratory Depth Normal Blood Pressure 144/79 H Blood Pressure Mean 100 Pulse Oximetry 95 Oxygen Delivery Method Room Air Sepsis Recent Fever Within 48 Hours No Sepsis New/Unexplained Change in Mental Status No Sepsis Action Taken by Nursing No Action Required Laboratory Data 03/16/23 09:58 03/16/23 09:58 Lab Results 03/16/23 03/16/23 03/16/23 Range/Units 09:48 09:58 11:59 WBC 13.29 H (4.8-10.8) K/ul RBC 4.74 (4.70-6.10) M/uL Hgb 14.6 (14.0-18.0) g/dl Hct 43.2 (42.0-52.0) % MCV 91.1 (80.0-100.0) fL MCH 30.8 (25.0-34.0) pg MCHC 33.8 (32.0-36.0) g/dL RDW Std Deviation 41.0 (36.4-46.3) fL RDW Coeff of Kely 12.2 (11.5-14.5) % Plt Count 194 (130-400) K/uL MPV 9.8 (9.4-12.4) fL Immature Gran % (Auto) 0.4 % Neut % (Auto) 80.5 % Lymph % (Auto) 9.3 % Morris % (Auto) 9.0 % Eos % (Auto) 0.5 % Baso % (Auto) 0.3 % Neut # (Auto) 10.71 H (1.40-6.50) K/uL Lymph # (Auto) 1.23 (1.20-3.40) K/uL Morris # (Auto) 1.20 H (0.11-0.59) K/uL Eos # (Auto) 0.06 (0.00-0.50) K/uL Baso # (Auto) 0.04 (0.00-0.20) K/uL Immature Gran # (Auto) 0.05 (0.01-0.20) K/uL Sodium 134 L (136-145) mmol/L Potassium 3.7 (3.5-5.1) mmol/L Chloride 97 L (98-107) mmol/L Carbon Dioxide 27 (21-32) mmol/L Anion Gap 10 (3-11) BUN 29 H (6-23) mg/dl Creatinine 1.31 (0.6-1.4) mg/dl Est Cr Clr Drug Dosing 57.5 ml/min Est GFR ( Amer) 64.4 ml/min Est GFR (Non-Af Amer) 55.5 ml/min BUN/Creatinine Ratio 22.1 H (10-20) Glucose 137 H (70-99(Fasting)) mg/dl Calcium 9.8 (8.6-10.3) mg/dl Magnesium 2.3 (1.7-2.4) mg/dl Total Bilirubin 2.3 H (0.2-1.0) mg/dl AST 12 L (13-39) U/L ALT 15 (7-52) U/L Alkaline Phosphatase 95 (34-104) U/L Total Protein 7.5 (6.0-8.3) gm/dl Albumin 4.2 (3.4-5.0) gm/dl Globulin 3.3 (2.5-4.0) gm/dl Albumin/Globulin Ratio 1.3 (0.9-2) Urine Color [place] Urine Appearance Cloudy A (Clear) Urine pH 5.5 (4.5-7.5) Ur Specific [place] 1.028 (1.000-1.030) Urine Protein 1+ H (Negative) Urine Glucose (UA) Negative (Negative) Urine Ketones Trace H (Negative) Urine Blood Negative (Negative) Urine Nitrite Negative (Negative) Urine Bilirubin 1+ H (Negative) Urine Urobilinogen Negative (Negative) Ur Leukocyte Esterase Trace H (Negative) Urine WBC (Auto) 1-5 (0-5) /hpf Urine RBC (Auto) 0-4 (0-4) /hpf U Hyaline Cast (Auto) >30 H (0-5) /lpf U Epithel Cells (Auto) >30 H (0-5) /lpf Urine Bacteria (Auto) Negative (Negative) Ur Renal Epithelial Cell Not Reportable Amorphous Sediment Present A (None Prsent) Urine Mucus Present A (None Prsent) SARS-CoV-2 (PCR) NEGATIVE (Negative) Influenza Type A (PCR) Negative (Neg) Influenza Type B (PCR) Negative (Neg) RSV (RT-PCR) Negative (Neg) Administered Medications Discontinued Medications Ioversol (Optiray 320 500ml) 90 ml IV ONCE ONE Stop: 03/16/23 12:41 Last Admin: 03/16/23 12:37 Dose: 90 ml Documented By: [facility] Imaging Data Radiologist's Impression: Abdomen/Pelvis CT 03/16/23 12:02 CT SCAN OF THE ABDOMEN AND PELVIS WITH IV CONTRAST CLINICAL HISTORY: Lower abdominal pain. Hematuria. COMPARISON STUDY: Abdominal CT dated 08/27/2018. Renal ultrasound dated 10/28/2022. TECHNIQUE: Following the IV administration of 90 cc of Optiray 320, CT scan of the abdomen and pelvis is performed from the lung bases to the proximal femora. Images are reviewed in the axial, sagittal, and coronal planes. IV contrast was administered without complication. A dose lowering technique was utilized adhering to the principles of ALARA. CT DOSE: 1270.63 mGy.cm FINDINGS: Lung bases: Implanted device is noted in the left lower chest wall. The lead is located in the presternal tissues. The heart is enlarged and without pericardial effusion. The coronary arteries are densely calcified. There is bibasilar scarring/atelectasis. No airspace consolidation or pleural effusion is identified. There is a small hiatal hernia. The distal esophagus appears thick walled. Liver: The contrast-enhanced liver is normal in size, contour, and attenuation. There is no intrahepatic biliary ductal dilatation. The hepatic veins and portal veins are patent. A 2 cm subcapsular hypodensity in the right lobe on image #98 is unchanged dating back to 2019. Gallbladder: Unremarkable. Spleen: Normal in size and attenuation. Pancreas: Unremarkable. Adrenal glands: Unremarkable. Kidneys: The contrast enhanced kidneys are normal in size and without hydronephrosis. Renal sinus cysts are noted bilaterally. Scattered subcentimeter cortical hypodensities likely represent cysts but are too small for definitive characterization. The kidneys enhance symmetrically. There is a punctate nonobstructing left renal calculus. A circumaortic left renal vein is incidentally noted. Abdominal vasculature: The abdominal aorta is normal in course and caliber noting moderate atherosclerotic calcification. Bowel: There is moderate sigmoid diverticulosis. Wall thickening and pericolonic inflammation is consistent with acute to subacute diverticulitis. There is phlegmonous change around the sigmoid colon. Small intramural fluid collections are suggested along the superior margin of the sigmoid colon on images #283 and image #289. These measure up to 1.7 cm. There is a tiny focus of adjacent peritoneal free air on image #23. There is a small extraluminal collection suggested on image #310 measuring up to 1.9 cm. There is likely a developing fistulous tract between the colon and an adjacent small bowel loop at this site. There are tethered loops of small bowel round inflammatory process in the upper pelvis. The extreme small bowel loops are dilated and fluid-filled, measuring up to 3.7 cm. The distal ileum is decompressed, and this is consistent with a small bowel obstruction. The appendix is well-visualized and normal. A duodenal diverticulum is noted. Peritoneum: No intraperitoneal free air is seen below the diaphragm. Tiny foci of extraluminal gas are noted in the pelvis adjacent to the diverticular disease. No ascites is seen. There is a fat-containing umbilical hernia. Lymphadenopathy: Prominent subcentimeter mesenteric lymph nodes are likely reactive. Pelvic viscera: The prostate gland is enlarged and heterogeneous. The bladder wall is thickened/trabeculated indicating chronic outlet obstruction. Inflamed colon closely approximates the bladder dome and there is pericystic inflammation. A developing colovesicular fistula is not excluded. Skeletal structures: The skeletal structures are osteopenic. There is mild lumbosacral spondylosis. No lytic or blastic lesions are seen. IMPRESSION: 1. There is acute to subacute sigmoid diverticulitis, likely with contained perforation. 2. There are small foci of extraluminal gas adjacent to the sigmoid colon, and small intramural abscesses are suspected which measure less than 2 cm. 3. Findings are suspicious for a developing enterocolic fistula between the sigmoid colon and a loop of adjacent small bowel. There may also be a developing colovesicular fistula. 4. There is tethering of the small bowel loops in the pelvis adjacent to the inflammatory process. The upstream small bowel loops are dilated and fluid- filled, and the distal small bowel/terminal ileum is decompressed. This is consistent with a small bowel obstruction. 5. There is pericystic inflammation. Correlate with clinical findings and urinalysis. 6. Cardiomegaly. 7. Left-sided nephrolithiasis. 8. Additional findings as above. ACT 112: Negative or not required by law. Electronically signed by: Willard Suazo M.D. 03/16/2023 1:11 PM Chest X-Ray 03/16/23 12:02 XR chest 1V portable CLINICAL HISTORY: productive cough COMPARISON STUDY: Chest radiograph May 04, 2018. FINDINGS: Lung volumes are normal. Lungs are clear. There is no pneumothorax or pleural effusion. Cardiomegaly is unchanged. Mediastinal contours are normal. There is no evidence for pulmonary edema. Electronic device within the left chest is noted. IMPRESSION: No acute cardiopulmonary findings. ACT 112: Negative or not required by law. Electronically signed by: Aamir Ponce M.D. 03/16/2023 12:13 PM Discharge Plan Visit Data Chief Complaint: Illness Stated Complaint: POSSIBLE BLOOD IN URINE, ILLNESS FOR 10 DAYS ED Provider: Ruby Coleman Discharge Problem: Diverticulitis of intestine with perforation and abscess, SBO (small bowel obstruction), Leukocytosis Forms Stand Alone Forms: My [facility] Prescriptions Prescriptions: No Action losartan 100 mg tablet 100 mg PO QAM Qty: 90 3RF atorvastatin 10 mg tablet 10 mg PO QPM Qty: 90 3RF metoprolol succinate 100 mg tablet extended release 24 hr 100 mg PO QAM Qty: 90 3RF amlodipine 10 mg tablet 10 mg PO QAM Qty: 90 3RF Rx Instructions: 10 mg PO daily; multivitamin [Daily Multi-Vitamin] Tablet 1 tab PO QAM tamsulosin 0.4 mg capsule 0.4 mg PO DAILY Qty: 30 11RF aspirin 81 mg Tablet,Delayed Release (Dr/Ec) 81 mg PO 3XWK Rx Instructions: MON/WED/FRI [place] [id number] mg Capsule 1 cap PO DAILY acetaminophen [Tylenol Extra Strength] 500 mg Tablet 1,000 mg PO Q6H PRN (Reason: Pain) ascorbic acid (vitamin C) [Vitamin C] 500 mg Tablet 500 mg PO QAM cholecalciferol (vitamin D3) [Vitamin D3] 25 mcg (1,000 unit) Tablet 25 mcg PO QAM Referrals Referrals: Hever Myers MD [Primary Care Provider] -
--- NOTE | 2023-03-16 12:14 | XRay Report ---
XR chest 1V portable CLINICAL HISTORY: productive cough COMPARISON STUDY: Chest radiograph May 04, 2018. FINDINGS: Lung volumes are normal. Lungs are clear. There is no pneumothorax or pleural effusion. Car diomegaly is unchanged. Mediastinal contours are normal. There is no evidence for pulmonary edema. El ectronic device within the left chest is noted. IMPRESSION: No acute cardiopulmonary findings. ACT 112: Negative or not required by law. Electronically signed by: Aamir Ponce M.D. 03/16/2023 12:13 PM
[2023-03-16 12:15] LABS: Appearance Urine Cloudy (Clear); Bacteria Urine Automated Negative (Negative); Blood Urine Negative (Negative); Color Urine Orange; Epithelial Cell Urine Auto >30 /lpf (0-5); Glucose Urine UA Negative (Negative); Ketones Urine Trace (Negative); Leukocyte Esterase Urine Trace (Negative); Nitrite Urine Negative (Negative); Protein Urine 1+ (Negative); RBC Urine Automated 0-4 /hpf (0-4); Specific Gravity Urine 1.028 (1.000-1.030); Urobilinogen Urine Negative (Negative); pH Urine 5.5 (4.5-7.5)
[2023-03-16 12:18] LABS: Bilirubin Urine 1+ (Negative)
[2023-03-16 12:27] LABS: Magnesium 2.3 mg/dl (1.7-2.4)
[2023-03-16] MEDS ORDERED: OPTIRAY 320 500ml IV ONE (12:40)
[2023-03-16 12:54] LABS: Cast Urine Automated >30 /lpf (0-5)
[2023-03-16 12:55] LABS: Amorphous Sediment Urine Present (None Prsent); Mucus Urine Present (None Prsent)
--- OUTSIDE RECORDS SUMMARY | 2023-03-16 13:07 | External Medical Summary | Continuity of Care Document ---
Author Name Unknown Organization [facility] [address] [facility] [[email or web address]] [address] [id number] Care Team Providers Care Tobacco Feeder Catcher Name Role Phone Hever Myers Primary Care Physician [phone] [facility]counter [facility] [id number] Date(s): 02/24/23 - 02/24/23 [facility] [address] [facility] [[email or web address]] [address] [id number] Encounter Diagnosis SK (seborrheic keratosis)(Discharge Diagnosis) - 02/24/23 Discharge Disposition: Home or Self Care Attending Physician: MD Tay David L Referring Physician: MD Tay David L Allergies, Adverse Reactions, Alerts Substance Reaction Severity Status Nasacort Severe nose bleeds Active Levaquin Rips tendons Active Dust gagging Active Mold Gagging Active Assessment and Plan Extracted from: Title:Clinical Document Author:MD Tay David L Date:02/24/23 OUTPATIENT NOTE Name: FLORIN GAUTHIER Patient Number:1 [id number] : 1955 Date of Service: 02/24/2023 _ Mr Gauthier is in for a recheck of his skin. 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 He does like to be outside. He is no prior issue of skin cancer. Note some lesions on the trunk. Physical examination: Is a well-developed well-nourished white male type II skin. He is alert and oriented x 3 peer examination of scalp face ears neck back chest abdomen hands and arms reveal several layne verruca hyperkeratotic papules on the flank right forehead and left dorsal hand. Has multiple hills angiomas on the trunk. Impression: #1 seborrheic keratosis of trunk and right forehead and left dorsal hand. #2 no evidence for atypical nevi or skin cancer. Plan: Reassurance. Sun protection was stressed. Return for recheck on a as needed basis. Medications amLODIPine 5 mg oral tablet Start: 02/24/17 13:44:00, 1 tab, PO, Daily, Disp# 30 tab, Refills: 5, Pharmacy: [facility] Start Date: 02/24/17 Stop Date: 08/23/17 Status: Ordered aspirin 81 mg oral delayed release tablet Start: 02/24/17 13:34:00 EST, 1 tab, PO, q48h, Disp# 15 tab, Refills: 5, Pharmacy: [facility] Start Date: 02/24/17 Stop Date: 08/23/17 Status: Ordered atorvastatin 10 mg oral tablet Start: 02/21/17 14:05:00, 1 tab, PO, qhs Start Date: 02/21/17 Status: Ordered metoprolol succinate 50 mg oral tablet, extended release Start: 02/24/17 13:33:00 EST, 1 tab, PO, Daily, Disp# 30 tab, Refills: 5, Pharmacy: [facility] Start Date: 02/24/17 Stop Date: 08/23/17 Status: Ordered multivitamin Start: 04/08/21 9:45:00 EST, 1 tab, PO, Daily Start Date: 04/08/21 Status: Ordered valsartan 160 mg oral tablet Start: 02/24/17 14:27:00 EST, 1 tab, PO, Daily Start Date: 02/24/17 Status: Ordered Mental Status 02/24/23 Barriers to Learning one year None evide nt Mandatory Health Literacy Documentation Yes Health Literacy Communication Barriers N ever Primary Language Macedonian Problem List Condition Confirmation Course Effective Dates Status Health Status Informant Nonocclusive coronary atherosclerosis of [place] coronary artery Confirmed Active Myocardial fibrosis Confirmed Active Hyperlipidemia Confirmed Active Hypertension Confirmed Active History of electrophysiologic study Confirmed Active Sustained ventricular tachycardia Confirmed Active Syncope Confirmed Active Diagnosis Diagnosis Type Effective Dates Health Status Cl inical Service Informant SK (seborrheic keratosis) Discharge Diagnosis 02/24/23 Procedures Procedure Date Related Diagnosis Body Site Status None Completed Social History Social History Type Response Smoking Status Never smoked cigaret marvin Sex Male Outpatient Note * MD Maggi, Quentin Herman: PERFORM Event Display: .Outpt Note Authored Date: [id number] OUTPATIENT NOTE Name: FLORIN GAUTHIER Patient Number:[id number] : 1955 Date of Service: 02/24/2023 _ Mr Gauthier is in for a recheck of his skin. 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 He does like to be outside. He is no prior issue of skin cancer. Note some lesions on the trunk. Physical examination: Is a well-developed well-nourished white male type II skin. He is alert and oriented x 3 peer examination of scalp face ears neck back chest abdomen hands and arms reveal several layne verruca hyperkeratotic papules on the flank right forehead and left dorsal hand. Has multiple hills angiomas on the trunk. Impression: #1 seborrheic keratosis of trunk and right forehead and left dorsal hand. #2 no evidence for atypical nevi or skin cancer. Plan: Reassurance. Sun protection was stressed. Return for recheck on a as needed basis. Electronic Signature on File Electronically Reviewed/Signed by: Quentin Tay MD Author Signature Dt/Tm:02/24/2023 08:57 AM Department of Dermatology DLS Patient Care team information Care Team Personnel Name: MD Myers Christopher E Position: Referring DIRECT Member Role: Primary Care Provider Address: Address: [address] [place] [address] [place] [address] Care Team Related Persons Name: JOSE A GAUTHIER Address: home [address] [place] [id number] Name: JOSE A GAUTHIER Address: [facility] Address: home [address] [place] [id number]
--- OUTSIDE RECORDS SUMMARY | 2023-03-16 13:07 | External Medical Summary | Continuity of Care Document ---
Author Name Unknown Organization [place] [address] [facility] Address [address] [place], [place] [id number] Care Team Providers Care Manager Diabetes Name Role Phone Lucia Hever Ashok Primary Care Physician [phone] [phone] Date(s): 10/20/22 - 10/20/22 [place] [address], [address] [place] [address] [phone] Discharge Disposition: Home or Self Care Attending Physician: MD Solano Soraya M Referring Physician: MD Solano Soraya M Allergies, Adverse Reactions, Alerts Substance Reaction Severity Status Nasacort Severe nose bleeds Active Levaquin Rips tendons Active Dust gagging Active Mold Gagging Active Medications amLODIPine 5 mg oral tablet Start: 02/24/17 13:44:00, 1 tab, PO, Daily, Disp# 30 tab, Refills: 5, Pharmacy: [facility] Start Date: 02/24/17 Stop Date: 08/23/17 Status: Ordered aspirin 81 mg oral delayed release tablet Start: 02/24/17 13:34:00 EST, 1 tab, PO, q48h, Disp# 15 tab, Refills: 5, Pharmacy: [facility] Start Date: 02/24/17 Stop Date: 08/23/17 Status: Ordered atorvastatin 10 mg oral tablet Start: 02/21/17 14:05:00, 1 tab, PO, qhs Start Date: 02/21/17 Status: Ordered finasteride 5 mg oral tablet Start: 02/23/22 8:12:00 EST, 1 tab, PO, Daily Start Date: 02/23/22 Status: Ordered metoprolol succinate 50 mg oral tablet, extended release Start: 02/24/17 13:33:00 EST, 1 tab, PO, Daily, Disp# 30 tab, Refills: 5, Pharmacy: [facility] Start Date: 02/24/17 Stop Date: 08/23/17 Status: Ordered multivitamin Start: 04/08/21 9:45:00 EST, 1 tab, PO, Daily Start Date: 04/08/21 Status: Ordered valsartan 160 mg oral tablet Start: 02/24/17 14:27:00 EST, 1 tab, PO, Daily Start Date: 02/24/17 Status: Ordered Problem List Condition Confirmation Course Effective Dates Status Health Status Informant 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 Active Myocardial fibrosis Confirmed Active Hyperlipidemia Confirmed Active Hypertension Confirmed Active History of electrophysiologic study Confirmed Active Sustained ventricular tachycardia Confirmed Active Syncope Confirmed Active Procedures Procedure Date Related Diagnosis Body Site Status None Completed Social History Social History Type Response Smoking Status Never smoked cigaret marvin Sex Male Patient Care team information Care Team Personnel Name: MD Lucia, Hever Pulido Position: Referring DIRECT Member Role: Primary Care Provider Address: Address: [address] [place] [address] [place] [address] Care Team Related Persons Name: JOSE A GAUTHIER Address: home [address] [place], [phone] Name: JOSE A GAUTHIER Address: [facility] Address: home [address] [place] [id number]
--- NOTE | 2023-03-16 13:13 | CT Scan Report ---
CT SCAN OF THE ABDOMEN AND PELVIS WITH IV CONTRAST CLINICAL HISTORY: Lower abdominal pain. Hematuria. COMPARISON STUDY: Abdominal CT dated 08/27/2018. Renal ultrasound dated 10/28/2022. TECHNIQUE: Following the IV administration of 90 cc of Optiray 320, CT scan of the abdomen and pelvi s is performed from the lung bases to the proximal femora. Images are reviewed in the axial, sagittal , and coronal planes. IV contrast was administered without complication. A dose lowering technique wa s utilized adhering to the principles of ALARA. CT DOSE: 1270.63 mGy.cm FINDINGS: Lung bases: Implanted device is noted in the left lower chest wall. The lead is located in the preste rnal tissues. The heart is enlarged and without pericardial effusion. The coronary arteries are dense ly calcified. There is bibasilar scarring/atelectasis. No airspace consolidation or pleural effusion is identified. There is a small hiatal hernia. The distal esophagus appears thick walled. Liver: The contrast-enhanced liver is normal in size, contour, and attenuation. There is no intrahepa tic biliary ductal dilatation. The hepatic veins and portal veins are patent. A 2 cm subcapsular hypo density in the right lobe on image #98 is unchanged dating back to 2019. Gallbladder: Unremarkable. Spleen: Normal in size and attenuation. Pancreas: Unremarkable. Adrenal glands: Unremarkable. Kidneys: The contrast enhanced kidneys are normal in size and without hydronephrosis. Renal sinus cys ts are noted bilaterally. Scattered subcentimeter cortical hypodensities likely represent cysts but a re too small for definitive characterization. The kidneys enhance symmetrically. There is a punctate nonobstructing left renal calculus. A circumaortic left renal vein is incidentally noted. Abdominal vasculature: The abdominal aorta is normal in course and caliber noting moderate atheroscle rotic calcification. Bowel: There is moderate sigmoid diverticulosis. Wall thickening and pericolonic inflammation is cons istent with acute to subacute diverticulitis. There is phlegmonous change around the sigmoid colon. S mall intramural fluid collections are suggested along the superior margin of the sigmoid colon on marisel ges #283 and image #289. These measure up to 1.7 cm. There is a tiny focus of adjacent peritoneal fr ee air on image #23. There is a small extraluminal collection suggested on image #310 measuring up to 1.9 cm. There is likely a developing fistulous tract between the colon and an adjacent small bowel l oop at this site. There are tethered loops of small bowel round inflammatory process in the upper pel vis. The extreme small bowel loops are dilated and fluid-filled, measuring up to 3.7 cm. The distal i leum is decompressed, and this is consistent with a small bowel obstruction. The appendix is well-vi sualized and normal. A duodenal diverticulum is noted. Peritoneum: No intraperitoneal free air is seen below the diaphragm. Tiny foci of extraluminal gas ar e noted in the pelvis adjacent to the diverticular disease. No ascites is seen. There is a fat-contai faustino umbilical hernia. Lymphadenopathy: Prominent subcentimeter mesenteric lymph nodes are likely reactive. Pelvic viscera: The prostate gland is enlarged and heterogeneous. The bladder wall is thickened/trabe culated indicating chronic outlet obstruction. Inflamed colon closely approximates the bladder dome a nd there is pericystic inflammation. A developing colovesicular fistula is not excluded. Skeletal structures: The skeletal structures are osteopenic. There is mild lumbosacral spondylosis. N o lytic or blastic lesions are seen. IMPRESSION: 1. There is acute to subacute sigmoid diverticulitis, likely with contained perforation. 2. There are small foci of extraluminal gas adjacent to the sigmoid colon, and small intramural absce sses are suspected which measure less than 2 cm. 3. Findings are suspicious for a developing enterocolic fistula between the sigmoid colon and a loop of adjacent small bowel. There may also be a developing colovesicular fistula. 4. There is tethering of the small bowel loops in the pelvis adjacent to the inflammatory process. Th e upstream small bowel loops are dilated and fluid-filled, and the distal small bowel/terminal ileum is decompressed. This is consistent with a small bowel obstruction. 5. There is pericystic inflammation. Correlate with clinical findings and urinalysis. 6. Cardiomegaly. 7. Left-sided nephrolithiasis. 8. Additional findings as above. ACT 112: Negative or not required by law. Electronically signed by: Willard Suazo M.D. 03/16/2023 1:11 PM
[2023-03-16] MEDS ORDERED: PIPERACILLIN/TAZOBACTAM 4.5 GM/100 ML BAG IV ONE (13:16)
--- NOTE | 2023-03-16 13:34 | Surgery Consultation ---
<Statement entered by Rudolph Robles DO - 03/16/23 21:53> This case was discussed with the surgical PA. I agree with this plan. Date of Consultation March 16, 2023 Assessment & Plan (1) Diverticulitis of intestine with abscess: This is a 68yM with a PMH of ICD, HLD, HTN who presents to the [facility] ED on 03/16/23 with complaints of abdominal pain. Patient reports the pain started a little over 1 week ago. His pain continued in addition to developing episodes of nausea/vomiting yesterday, therefore he decided to come into the ER today for evaluation. He underwent a CT a/p that revealed acute to subacute sigmoid diverticulitis, likely with contained perforation with small intramural abscesses are suspected which measure less than 2 cm. There is also findings suspicious fo a developing enterocolic fistula between the sigmoid colon and a loop of adjacent small bowel. There may also be a developing colovesicular fistula. There is tethering of the small bowel loops in the pelvis adjacent to the inflammatory process with concern for SBO. The patient states his abdominal pain is mostly located across the bilateral lower abdomen. He has had no n/v today thus far. Labs reveal WBC 13, Hbg 14.6, Cr 1.3, K 3.7. Vitals are stable and patient is afebrile, HRs 50s. Abdomen is softly distended with discomfort to palpation across the lower abdomen. Patient's symptoms have been present for >1 wk. He will benefit from admission with bowel rest (ice okay), NPO/IVF, and IV abx initiation. No indication for acute surgical intervention at this time. We will follow closely for any changes in patient's condition. Hopefully we can get him through this episode and he can follow up with GI as an outpatient for repeat colonoscopy and consider f/u with colorectal given findings concerning for fistula formation on CT scan. History of Present Illness History of Present Illness This is a 68yM with a PMH of ICD, HLD, HTN who presents to the [facility] ED on 03/16/23 with complaints of abdominal pain. Patient reports the pain started a little over 1 week ago. He was concerned for possible UTI vs. covid. As his pain continued and he developed episodes of nausea/vomiting yesterday, he decided to come into the ER today for evaluation. He underwent a CT a/p that revealed acute to subacute sigmoid diverticulitis, likely with contained perforation with small intramural abscesses are suspected which measure less than 2 cm. There is also findings suspicious fo a developing enterocolic fistula between the sigmoid colon and a loop of adjacent small bowel. There may also be a developing colovesicular fistula. There is tethering of the small bowel loops in the pelvis adjacent to the inflammatory process with concern for SBO. The patient states his abdominal pain is mostly located across the bilateral lower abdomen. He reports nausea with 4x emesis yesterday, but none today. Developed chills 2 days ago, low grade temps but no true fevers. Some diarrhea yesterday, but no flatus or BM today. Denies CP/SOB. Reports history of colonoscopy a few years ago and awareness of diverticulosis, but never had any episodes of diverticulitis prior to this. Has had prostate biopsy and some urologic procedures, otherwise no other abdominal surgical history. Last ate 1/2 banana and some water this Am for breakfast without issues. Allergies Allergy/AdvReac Type Severity Reaction Status Date / Time levofloxacin Allergy Unknown DIFFICULTY Verified 11/02/22 16:22 WALKING triamcinolone Allergy Unknown Nose Bleeds Verified 11/02/22 16:22 Home Medications Medication Instructions Recorded Confirmed Type aspirin 81 mg tablet,delayed 81 mg PO 3XWK 04/29/18 03/16/23 History release vit C 30 mg-s.branch 250 mg-celery 1 cap PO DAILY 04/29/18 03/16/23 History seed 75 mg-grape seed extrt capsule ([place]) acetaminophen 500 mg tablet 1,000 mg PO Q6H PRN Pain 08/14/18 03/16/23 History (Tylenol Extra Strength) multivitamin (Daily Multi-Vitamin 1 tab PO QAM 04/14/20 03/16/23 History tablet) ascorbic acid (vitamin C) 500 mg 500 mg PO QAM 09/22/20 03/16/23 History tablet (Vitamin C) cholecalciferol (vitamin D3) 25 25 mcg PO QAM 09/22/20 03/16/23 History mcg (1,000 unit) tablet (Vitamin D3) losartan 100 mg tablet 100 mg PO QAM #90 tabs 05/27/22 03/16/23 Rx tamsulosin 0.4 mg capsule 0.4 mg PO DAILY #30 caps 11/02/22 03/16/23 Rx atorvastatin 10 mg tablet 10 mg PO QPM #90 tabs 01/12/23 03/16/23 Rx metoprolol succinate 100 mg 100 mg PO QAM #90 tabs 01/30/23 03/16/23 Rx tablet,extended release 24 hr amlodipine 10 mg tablet 10 mg PO QAM #90 tabs 03/08/23 03/16/23 Rx Patient History Medical History Hypokalemia Single implantable cardioverter-defibrillator (ICD) in situ Hx of ventricular tachycardia Myocardial fibrosis Seen on cardiac MRI, underlying etiology unclear. Preserved LV function. Defibrillator was placed due to this abnormality in the setting of sustained VT. Ventricular tachycardia H/o syncope prompted cardiac workup; "EP study showed triggered VT with multiple morphologies." S/P ICD implantation 06/2017. ICD (implantable cardioverter-defibrillator) [place] [facility] [place] [employer] [place] FOLLOWS W/ DR. SINGH, has never been shocked. Was placed after unsuccessful ablation for vtach. Kidney stones Hyperlipemia Atrial fibrillation with rapid ventricular response pt denies hx a.fib HTN (hypertension) Surgical History History of removal of ureteral stent History of radiofrequency ablation (RFA) procedure for cardiac arrhythmia With EP mapping. Unsuccessful ablation. History of lithotripsy 05/2018 [facility] [place]oscopy with ureteral stent placement 05/2018 [facility] History of colonoscopy History of cardiac cath 02/2017 X 2 FOR TACHYCARDIA (1ST TO CHECK FOR BLOCKAGES AND 2ND FOR POSSIBLE ABLATION FOR ARRHYTHMIA). UNABLE TO PERFORM ABLATION --> ICD PLACED 06/2017 H/O prostate biopsy Family History Father Diabetes 1.5, managed as type 1 Cardiac abnormality Aunt Family hx of colon cancer Colorectal cancer Other Family history non-contributory Denies family history of Ovarian cancer Prostate cancer Myocardial infarction Breast cancer Social History Smoking Status: Never smoker Second Hand Exposure: No; Do You Dip or Chew Tobacco: No; Hx Alcohol Use: Yes Alcohol type: wine Hx Substance Use: No Preferred Language: Lao Communication Ability: Effective Visual Impairment: No Limitations Hearing Ability: Normal Press Set Up Required: No Beliefs That Will Affect Care: None marital status: Current Living Situation: Spouse current occupational status: retired Feels Safe at Home: Yes Childhood Exposure to Second-Hand Smoke: Yes Dental Care, Regularly: Yes Physical Activity Frequency: Daily Assistive Devices: Glasses Review of Systems Constitutional: + fever (low grade temps) and + chills Respiratory: no dyspnea Cardiovascular: no chest pain Gastrointestinal: + abdominal pain (across lower abdomen), + bloating, + nausea, + vomiting (yesterday) and + diarrhea/loose stools (yesterday) Physical Exam Physical Exam: awake/alert, no distress Constitutional: well developed, well nourished and comfortable Respiratory: normal respiratory effort Gastrointestinal (Abdomen): Inspection/Auscultation: + abdomen distended (mild) Percussion/Palpation: + abdomen tender (discomfort to palpation across bilateral lower abdomen) and abdomen soft Results & Data Vital Signs (Past 12 Hours) Vital Signs Temp Pulse Resp BP Pulse Ox O2 Del Method 03/16/23 09:46 36.8 C 52 L 16 144/79 H 95 Room Air Diagnostic Findings CT SCAN OF THE ABDOMEN AND PELVIS WITH IV CONTRAST CLINICAL HISTORY: Lower abdominal pain. Hematuria. COMPARISON STUDY: Abdominal CT dated 08/27/2018. Renal ultrasound dated 10/28/2022. TECHNIQUE: Following the IV administration of 90 cc of Optiray 320, CT scan of the abdomen and pelvis is performed from the lung bases to the proximal femora. Images are reviewed in the axial, sagittal, and coronal planes. IV contrast was administered without complication. A dose lowering technique was utilized adhering to the principles of ALARA. CT DOSE: 1270.63 mGy.cm FINDINGS: Lung bases: Implanted device is noted in the left lower chest wall. The lead is located in the presternal tissues. The heart is enlarged and without pericardial effusion. The coronary arteries are densely calcified. There is bibasilar scarr ing/atelectasis. No airspace consolidation or pleural effusion is identified. There is a small hiatal hernia. The distal esophagus appears thick walled. Liver: The contrast-enhanced liver is normal in size, contour, and attenuation. There is no intrahepatic biliary ductal dilatation. The hepatic veins and portal veins are patent. A 2 cm subcapsular hypodensity in the right lobe on image #98 is unchanged dating back to 2019. Gallbladder: Unremarkable. Spleen: Normal in size and attenuation. Pancreas: Unremarkable. Adrenal glands: Unremarkable. Kidneys: The contrast enhanced kidneys are normal in size and without hydronephrosis. Renal sinus cysts are noted bilaterally. Scattered subcentimeter cortical hypodensities likely represent cysts but are too small for definitive characterization. The kidneys enhance symmetrically. There is a punctate nonobstructing left renal calculus. A circumaortic left renal vein is incidentally noted. Abdominal vasculature: The abdominal aorta is normal in course and caliber noting moderate atherosclerotic calcification. Bowel: There is moderate sigmoid diverticulosis. Wall thickening and pericolonic inflammation is consistent with acute to subacute diverticulitis. There is phlegmonous change around the sigmoid colon. Small intramural fluid collections are suggested along the superior margin of the sigmoid colon on images #283 and image #289. These measure up to 1.7 cm. There is a tiny focus of adjacent peritoneal free air on image #23. There is a small extraluminal collection suggested on image #310 measuring up to 1.9 cm. There is likely a developing fistulous tract between the colon and an adjacent small bowel loop at this site. There are tethered loops of small bowel round inflammatory process in the upper pelvis. The extreme small bowel loops are dilated and fluid-filled, measuring up to 3.7 cm. The distal ileum is decompressed, and this is consistent with a small bowel obstruction. The appendix is well-visualized and normal. A duodenal diverticulum is noted. Peritoneum: No intraperitoneal free air is seen below the diaphragm. Tiny foci of extraluminal gas are noted in the pelvis adjacent to the diverticular disease. No ascites is seen. There is a fat-containing umbilical hernia. Lymphadenopathy: Prominent subcentimeter mesenteric lymph nodes are likely reactive. Pelvic viscera: The prostate gland is enlarged and heterogeneous. The bladder wall is thickened/trabeculated indicating chronic outlet obstruction. Inflamed colon closely approximates the bladder dome and there is pericystic inflammation. A developing colovesicular fistula is not excluded. Skeletal structures: The skeletal structures are osteopenic. There is mild lumbosacral spondylosis. No lytic or blastic lesions are seen. IMPRESSION: 1. There is acute to subacute sigmoid diverticulitis, likely with contained perforation. 2. There are small foci of extraluminal gas adjacent to the sigmoid colon, and small intramural abscesses are suspected which measure less than 2 cm. 3. Findings are suspicious for a developing enterocolic fistula between the sigmoid colon and a loop of adjacent small bowel. There may also be a developing colovesicular fistula. 4. There is tethering of the small bowel loops in the pelvis adjacent to the inflammatory process. The upstream small bowel loops are dilated and fluid- filled, and the distal small bowel/terminal ileum is decompressed. This is consistent with a small bowel obstruction. 5. There is pericystic inflammation. Correlate with clinical findings and urinalysis. 6. Cardiomegaly. 7. Left-sided nephrolithiasis. 8. Additional findings as above. ACT 112: Negative or not required by law. Electronically signed by: Willard Suazo M.D. 03/16/2023 1:11 PM PG Care Time/CCT Total # of Minutes Spent Total Time Spent with Patient: Total time spent is greater than 50% in coordination of care (as documented) at patient's floor/unit and/or counseling patient: Coding Level of Care Code 99061 OFFICE CONSULT LVL M Diagnoses Diverticulitis of large intestine with abscess without bleeding K57.20 Diverticulitis site: large intestine Diverticulitis bleeding: without bleeding (1) Diverticulitis of intestine with abscess Diverticulitis site: large intestine Diverticulitis bleeding: without bleeding Qualified Code(s): K57.20 - Diverticulitis of large intestine with perforation and abscess without bleeding
--- NOTE | 2023-03-16 14:17 | History & Physical Report ---
Date of Service March 16, 2023 Assessment & Plan (1) Diverticulitis of intestine with abscess: Plan: 68 yo male with a PMH of ventricular tachycardia s/p ICD, HLD, BPH, and HTN presents with abdominal pain. #Diverticulitis with Abscess #Small Bowel Obstruction -presented with 3 wks progressively worsening abdominal pain. Leukocytosis 13. CXR unremarkable. UA without infection. -CT A/P: Acute to subacute sigmoid diverticulitis, likely with contained perfor ation. Small foci of extraluminal gas adjacent to the sigmoid colon, and small intramural abscesses. 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 There may also be a developing colovesicular fistula. Upstream small bowel loops are dilated and fluid-filled, and the distal small bowel/terminal ileum is decompressed which is consistent with a small rafa l obstruction. -gen surg consulted -conservative management for now -strict NPO, IVF, IV abx- zosyn -consider outpatient GI follow up for colonoscopy -consider outpatient colorectal follow up for developing fistulas #H/o ventricular tachycardia s/p ICD -on metoprolol succinate 100mg daily at home -while NPO, will cover with Lopressor IV 5mg q6h -consider dose reduction in outpatient setting as patient seems to have HRs in the 50s at his current home dose, asymptomatic #HTN -resume losartan, amlodipine, metoprolol when able #HLD -resume statin when able #BPH -resume flomax when able DVT ppx: SCDs/ambulation; avoid chemical in case of procedure FEN/GI: strict NPO, IVF Code Status: full Dispo: med tele (2) SBO (small bowel obstruction): (3) BPH w urinary obs/LUTS: (4) Hx of ventricular tachycardia: (5) Single implantable cardioverter-defibrillator (ICD) in situ: (6) HTN (hypertension): (7) Hyperlipidemia: (8) GERD (gastroesophageal reflux disease): History of Present Illness Chief Complaint: abdominal pain Primary Care Provider: Hever Myers MD 68 yo male with a PMH of ventricular tachycardia s/p ICD, HLD, BPH, and HTN presents with abdominal pain. 3 weeks ago patient had mild lower abdominal pain which has progressively worsened since. Last night he notes the abdominal pain to be a 9/10 and had associated nausea, nonbloody vomiting and diarrhea. Of note 1 week ago he did begin having a productive cough with some fatigue which has been improving but still has this lingering cough. At that time he was near someone with COVID. Also had a low-grade fever of 100.4 with chills two nights ago. Denies chest pain, sob, dysuria, extremity weakness/numbness/tingling. No history of abdominal surgeries. Has been able to tolerate food and liquids this past week and has been staying well hydrated. Allergies Allergy/AdvReac Type Severity Reaction Status Date / Time levofloxacin Allergy Unknown DIFFICULTY Verified 11/02/22 16:22 WALKING triamcinolone Allergy Unknown Nose Bleeds Verified 11/02/22 16:22 Home Medications Medication Instructions Recorded Confirmed Type aspirin 81 mg tablet,delayed 81 mg PO 3XWK 04/29/18 03/16/23 History release vit C 30 mg-s.branch 250 mg-celery 1 cap PO DAILY 04/29/18 03/16/23 History seed 75 mg-grape seed extrt capsule ([place]) acetaminophen 500 mg tablet 1,000 mg PO Q6H PRN Pain 08/14/18 03/16/23 History (Tylenol Extra Strength) multivitamin (Daily Multi-Vitamin 1 tab PO QAM 04/14/20 03/16/23 History tablet) ascorbic acid (vitamin C) 500 mg 500 mg PO QAM 09/22/20 03/16/23 History tablet (Vitamin C) cholecalciferol (vitamin D3) 25 25 mcg PO QAM 09/22/20 03/16/23 History mcg (1,000 unit) tablet (Vitamin D3) losartan 100 mg tablet 100 mg PO QAM #90 tabs 05/27/22 03/16/23 Rx tamsulosin 0.4 mg capsule 0.4 mg PO DAILY #30 caps 11/02/22 03/16/23 Rx atorvastatin 10 mg tablet 10 mg PO QPM #90 tabs 01/12/23 03/16/23 Rx metoprolol succinate 100 mg 100 mg PO QAM #90 tabs 01/30/23 03/16/23 Rx tablet,extended release 24 hr amlodipine 10 mg tablet 10 mg PO QAM #90 tabs 03/08/23 03/16/23 Rx Past Med/Surg History Medical History (Updated 03/17/23 @ 08:15 by Fredis Morales MD) Encounter for pre-operative examination Hypokalemia Single implantable cardioverter-defibrillator (ICD) in situ Hx of ventricular tachycardia Myocardial fibrosis Seen on cardiac MRI, underlying etiology unclear. Preserved LV function. Defibrillator was placed due to this abnormality in the setting of sustained VT. Ventricular tachycardia H/o syncope prompted cardiac workup; "EP study showed triggered VT with multiple morphologies." S/P ICD implantation 06/2017. ICD (implantable cardioverter-defibrillator) in place 06/2017 - C - V. TACH - [employer] - FOLLOWS W/ DR. SINGH, has never been shocked. Was placed after unsuccessful ablation for vtach. Kidney stones Hyperlipemia Atrial fibrillation with rapid ventricular response pt denies hx a.fib HTN (hypertension) Surgical History History of removal of ureteral stent History of radiofrequency ablation (RFA) procedure for cardiac arrhythmia With EP mapping. Unsuccessful ablation. [place] [facility] [place]oscopy with ureteral stent placement 05/2018 [facility] History of colonoscopy History of cardiac cath 02/2017 X 2 FOR TACHYCARDIA (1ST TO CHECK FOR BLOCKAGES AND 2ND FOR POSSIBLE ABLATION FOR ARRHYTHMIA). UNABLE TO PERFORM ABLATION --> ICD PLACED 06/2017 H/O prostate biopsy Family History Father Diabetes 1.5, managed as type 1 Cardiac abnormality Aunt Family hx of colon cancer Colorectal cancer Other Family history non-contributory Denies family history of Ovarian cancer Prostate cancer Myocardial infarction Breast cancer Social History Smoking Status: Never smoker Second Hand Exposure: No; Do You Dip or Chew Tobacco: No; Hx Alcohol Use: Yes Alcohol type: wine Hx Substance Use: No Preferred Language: Finnish Communication Ability: Effective Visual Impairment: No Limitations Hearing Ability: Normal 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 AOx3. Vitals as above. HEENT: No scleral injection or discharge. Moist mucous membranes. Neck: Supple without lymphadenopathy. Trachea midline. Lungs: Clear to auscultation bilaterally with good effort. No wheezes/rales/rhonchi. Cardiac: Regular rate and rhythm. No murmurs. No lower extremity edema. 2+ distal peripheral pulses. Abdomen: Bowel sounds present. Soft. Distended. Diffusely tender to deep palpation greater in lower quadrants.No significant guarding. MSK: No cyanosis or clubbing. Extremities motor strength 5/5. Skin: No rashes, warm, dry. Neurologic: no focal deficits Results & Data Results & Data Vital Signs (Past 12 Hours) Vital Signs Temp Pulse Resp BP Pulse Ox O2 Del Method 03/16/23 09:46 36.8 C 52 L 16 144/79 H 95 Room Air Laboratory Results Laboratory Results WBC 13.29 K/ul (4.8-10.8) H 03/16/23 09:58 RBC 4.74 M/uL (4.70-6.10) 03/16/23 09:58 Hgb 14.6 g/dl (14.0-18.0) 03/16/23 09:58 Hct 43.2 % (42.0-52.0) 03/16/23 09:58 MCV 91.1 fL (80.0-100.0) 03/16/23 09:58 MCH 30.8 pg (25.0-34.0) 03/16/23 09:58 MCHC 33.8 g/dL (32.0-36.0) 03/16/23 09:58 RDW Std Deviation 41.0 fL (36.4-46.3) 03/16/23 09:58 RDW Coeff of Kely 12.2 % (11.5-14.5) 03/16/23 09:58 Plt Count 194 K/uL (130-400) 03/16/23 09:58 MPV 9.8 fL (9.4-12.4) 03/16/23 09:58 Immature Gran % (Auto) 0.4 % 03/16/23 09:58 Neut % (Auto) 80.5 % 03/16/23 09:58 Lymph % (Auto) 9.3 % 03/16/23 09:58 [place] % (Auto) 9.0 % 03/16/23 09:58 Eos % (Auto) 0.5 % 03/16/23 09:58 Baso % (Auto) 0.3 % 03/16/23 09:58 Neut # (Auto) 10.71 K/uL (1.40-6.50) H 03/16/23 09:58 Lymph # (Auto) 1.23 K/uL (1.20-3.40) 03/16/23 09:58 [place] # (Auto) 1.20 K/uL (0.11-0.59) H 03/16/23 09:58 Eos # (Auto) 0.06 K/uL (0.00-0.50) 03/16/23 09:58 Baso # (Auto) 0.04 K/uL (0.00-0.20) 03/16/23 09:58 Immature Gran # (Auto) 0.05 K/uL (0.01-0.20) 03/16/23 09:58 Sodium 134 mmol/L (136-145) L 03/16/23 09:58 Potassium 3.7 mmol/L (3.5-5.1) 03/16/23 09:58 Chloride 97 mmol/L (98-107) L 03/16/23 09:58 Carbon Dioxide 27 mmol/L (21-32) 03/16/23 09:58 Anion Gap 10 (3-11) 03/16/23 09:58 BUN 29 mg/dl (6-23) H 03/16/23 09:58 Creatinine 1.31 mg/dl (0.6-1.4) 03/16/23 09:58 Est Cr Clr Drug Dosing 57.5 ml/min 03/16/23 09:58 Est GFR ( Amer) 64.4 ml/min 03/16/23 09:58 Est GFR (Non-Af Amer) 55.5 ml/min 03/16/23 09:58 BUN/Creatinine Ratio 22.1 (10-20) H 03/16/23 09:58 Glucose 137 mg/dl (70-99(Fasting)) H 03/16/23 09:58 Calcium 9.8 mg/dl (8.6-10.3) 03/16/23 09:58 Magnesium 2.3 mg/dl (1.7-2.4) 03/16/23 09:58 Total Bilirubin 2.3 mg/dl (0.2-1.0) H 03/16/23 09:58 AST 12 U/L (13-39) L 03/16/23 09:58 ALT 15 U/L (7-52) 03/16/23 09:58 Alkaline Phosphatase 95 U/L (34-104) 03/16/23 09:58 Total Protein 7.5 gm/dl (6.0-8.3) 03/16/23 09:58 Albumin 4.2 gm/dl (3.4-5.0) 03/16/23 09:58 Globulin 3.3 gm/dl (2.5-4.0) 03/16/23 09:58 Albumin/Globulin Ratio 1.3 (0.9-2) 03/16/23 09:58 Urine Color Bibb 03/16/23 11:59 Urine Appearance Cloudy (Clear) A 03/16/23 11:59 Urine pH 5.5 (4.5-7.5) 03/16/23 11:59 Ur Specific [place] 1.028 (1.000-1.030) 03/16/23 11:59 Urine Protein 1+ (Negative) H 03/16/23 11:59 Urine Glucose (UA) Negative (Negative) 03/16/23 11:59 Urine Ketones Trace (Negative) H 03/16/23 11:59 Urine Blood Negative (Negative) 03/16/23 11:59 Urine Nitrite Negative (Negative) 03/16/23 11:59 Urine Bilirubin 1+ (Negative) H 03/16/23 11:59 Urine Urobilinogen Negative (Negative) 03/16/23 11:59 Ur Leukocyte Esterase Trace (Negative) H 03/16/23 11:59 Urine WBC (Auto) 1-5 /hpf (0-5) 03/16/23 11:59 Urine RBC (Auto) 0-4 /hpf (0-4) 03/16/23 11:59 U Hyaline Cast (Auto) >30 /lpf (0-5) H 01/11/24 11:59 U Epithel Cells (Auto) >30 /lpf (0-5) H 03/16/23 11:59 Urine Bacteria (Auto) Negative (Negative) 03/16/23 11:59 Ur Renal Epithelial Cell Not Reportable 03/16/23 11:59 Amorphous Sediment Present (None Prsent) A 03/16/23 11:59 Urine Mucus Present (None Prsent) A 03/16/23 11:59 SARS-CoV-2 (PCR) NEGATIVE (Negative) 03/16/23 09:48 Influenza Type A (PCR) Negative (Neg) 03/16/23 09:48 Influenza Type B (PCR) Negative (Neg) 03/16/23 09:48 RSV (RT-PCR) Negative (Neg) 03/16/23 09:48 Impressions Abdomen/Pelvis CT 03/16/23 12:02 CT SCAN OF THE ABDOMEN AND PELVIS WITH IV CONTRAST CLINICAL HISTORY: Lower abdominal pain. Hematuria. COMPARISON STUDY: Abdominal CT dated 08/27/2018. Renal ultrasound dated 10/28/2022. TECHNIQUE: Following the IV administration of 90 cc of Optiray 320, CT scan of the abdomen and pelvis is performed from the lung bases to the proximal femora. Images are reviewed in the axial, sagittal, and coronal planes. IV contrast was administered without complication. A dose lowering technique was utilized adhering to the principles of ALARA. CT DOSE: 1270.63 mGy.cm FINDINGS: Lung bases: Implanted device is noted in the left lower chest wall. The lead is located in the presternal tissues. The heart is enlarged and without pericardial effusion. The coronary arteries are densely calcified. There is bibasilar scarring/atelectasis. No airspace consolidation or pleural effusion is identified. There is a small hiatal hernia. The distal esophagus appears thick walled. Liver: The contrast-enhanced liver is normal in size, contour, and attenuation. There is no intrahepatic biliary ductal dilatation. The hepatic veins and portal veins are patent. A 2 cm subcapsular hypodensity in the right lobe on image #98 is unchanged dating back to 2019. Gallbladder: Unremarkable. Spleen: Normal in size and attenuation. Pancreas: Unremarkable. Adrenal glands: Unremarkable. Kidneys: The contrast enhanced kidneys are normal in size and without hydronephrosis. Renal sinus cysts are noted bilaterally. Scattered subcentimeter cortical hypodensities likely represent cysts but are too small for definitive characterization. The kidneys enhance symmetrically. There is a punctate nonobstructing left renal calculus. A circumaortic left renal vein is incidentally noted. Abdominal vasculature: The abdominal aorta is normal in course and caliber noting moderate atherosclerotic calcification. Bowel: There is moderate sigmoid diverticulosis. Wall thickening and pericolonic inflammation is consistent with acute to subacute diverticulitis. There is phlegmonous change around the sigmoid colon. Small intramural fluid collections are suggested along the superior margin of the sigmoid colon on images #283 and image #289. These measure up to 1.7 cm. There is a tiny focus of adjacent peritoneal free air on image #23. There is a small extraluminal collection suggested on image #310 measuring up to 1.9 cm. There is likely a developing fistulous tract between the colon and an adjacent small bowel loop at this site. There are tethered loops of small bowel round inflammatory process in the upper pelvis. The extreme small bowel loops are dilated and fluid-filled, measuring up to 3.7 cm. The distal ileum is decompressed, and this is consistent with a small bowel obstruction. The appendix is well-visualized and normal. A duodenal diverticulum is noted. Peritoneum: No intraperitoneal free air is seen below the diaphragm. Tiny foci of extraluminal gas are noted in the pelvis adjacent to the diverticular disease. No ascites is seen. There is a fat-containing umbilical hernia. Lymphadenopathy: Prominent subcentimeter mesenteric lymph nodes are likely reactive. Pelvic viscera: The prostate gland is enlarged and heterogeneous. The bladder wall is thickened/trabeculated indicating chronic outlet obstruction. Inflamed colon closely approximates the bladder dome and there is pericystic inflammation. A developing colovesicular fistula is not excluded. Skeletal structures: The skeletal structures are osteopenic. There is mild lumbosacral spondylosis. No lytic or blastic lesions are seen. IMPRESSION: 1. There is acute to subacute sigmoid diverticulitis, likely with contained perforation. 2. There are small foci of extraluminal gas adjacent to the sigmoid colon, and small intramural abscesses are suspected which measure less than 2 cm. 3. Findings are suspicious for a developing enterocolic fistula between the sigmoid colon and a loop of adjacent small bowel. There may also be a developing colovesicular fistula. 4. There is tethering of the small bowel loops in the pelvis adjacent to the inflammatory process. The upstream small bowel loops are dilated and fluid- filled, and the distal small bowel/terminal ileum is decompressed. This is consistent with a small bowel obstruction. 5. There is pericystic inflammation. Correlate with clinical findings and urinalysis. 6. Cardiomegaly. 7. Left-sided nephrolithiasis. 8. Additional findings as above. ACT 112: Negative or not required by law. Electronically signed by: Willard Suazo M.D. 03/16/2023 1:11 PM Chest X-Ray 03/16/23 12:02 XR chest 1V portable CLINICAL HISTORY: productive cough COMPARISON STUDY: Chest radiograph May 04, 2018. FINDINGS: Lung volumes are normal. Lungs are clear. There is no pneumothorax or pleural effusion. Cardiomegaly is unchanged. Mediastinal contours are normal. There is no evidence for pulmonary edema. Electronic device within the left chest is noted. IMPRESSION: No acute cardiopulmonary findings. ACT 112: Negative or not required by law. Electronically signed by: Aamir Ponce M.D. 03/16/2023 12:13 PM Code Status & VTE Plan VTE Prophylaxis Plan VTE Prophylaxis will be ordered: Yes Supervising Physician Co-Signing Physician Notes I personally saw and examined the patient. I verified all haney points and agree with resident physician Dr uLl Deleon, with the following exceptions and/or additions: 68 year old male presents to the ER with 1 month of lower abdominal pain, generalized weakness, chills and cough. Much worse over the last week and he thought he had a respiratory infection. No prior diverticulitis. Last colonoscopy in 2018. O/E HS RRR, no murmurs, Chest CTAB, Lower abdominal mild pain on palpation without guarding or rebound tenderness A/P Acute diverticulitis with contained perforation / SBO - NPO, IV Zosyn, IV fluids (2L NSS ordered, further IV fluids pending repeat labs in AM). Follow up colonoscopy discussed with the patient in 4-6 weeks. GERD - famotidine 20mg IV daily added Otherwise as above Resident Activity Tracking Resident Involvement: Resident Care Provided Care Provided: Adult Hospital Medicine (1) Diverticulitis of intestine with abscess Diverticulitis bleeding: without bleeding Diverticulitis site: large intestine Qualified Code(s): K57.20 - Diverticulitis of large intestine with perforation and abscess without bleeding
[2023-03-16] MEDS ORDERED: ONDANSETRON INJ 2 MG/ML 2 ML VIAL IV PRN (15:35)
[2023-03-16] MEDS: SODIUM CHLORIDE 0.9% 1,000 ML IV SCH (16:20)
--- NOTE | 2023-03-16 16:47 | Billing Data ---
Date of Service March 16, 2023 Coding Level of Care Code 54772 INT INP/OBS CARE
[2023-03-16] MEDS: FAMOTIDINE 20 MG in SYRINGE 3 ML IV SCH (17:06)
[2023-03-16] MEDS: ACETAMINOPHEN 1,000 MG/100 ML VIAL IV PRN (17:06)
[2023-03-16] MEDS: PIPERACILLIN/TAZOBACTAM 4.5 GM in DEXTROSE 5% MINI-B 100 ML IV SCH (19:30)
[2023-03-17] MEDS: SODIUM CHLORIDE 0.9% 1,000 ML IV SCH (00:55)
[2023-03-17] MEDS: ACETAMINOPHEN 1,000 MG/100 ML VIAL IV PRN ×2 (02:50→21:04)
[2023-03-17] MEDS: PIPERACILLIN/TAZOBACTAM 4.5 GM in DEXTROSE 5% MINI-B 100 ML IV SCH ×3 (04:00→20:59)
[2023-03-17] MEDS: METOPROLOL TARTRATE 1 MG/ML VIAL IV SCH ×3 (05:22→17:45)
[2023-03-17 07:19] LABS: Basophils # (auto) 0.03 K/uL (0.00-0.20); Basophils % (auto) 0.3 %; Eosinophils # (auto) 0.15 K/uL (0.00-0.50); Eosinophils % (auto) 1.4 %; Hematocrit (blood only) 38.3 % (42.0-52.0); Hemoglobin 13.4 g/dl (14.0-18.0); Immature Granulocytes # (auto) 0.04 K/uL (0.01-0.20); Immature Granulocytes % (auto) 0.4 %; Lymphocytes # (auto) 1.41 K/uL (1.20-3.40); Lymphocytes % (auto) 12.9 %; Mean Corpuscular Volume 88.7 fL (80.0-100.0); Mean Platelet Volume 9.6 fL (9.4-12.4); Monocytes # (auto) 1.18 K/uL (0.11-0.59); Monocytes % (auto) 10.8 %; Neutrophils # (auto) 8.14 K/uL (1.40-6.50); Neutrophils % (auto) 74.2 %; Platelet Count 190 K/uL (130-400); RDW Coefficient of Variation 12.3 % (11.5-14.5); RDW Standard Deviation 40.3 fL (36.4-46.3); Red Blood Count 4.32 M/uL (4.70-6.10); White Blood Count 10.95 K/ul (4.8-10.8)
[2023-03-17] MEDS: FAMOTIDINE 20 MG in SYRINGE 3 ML IV SCH (08:15)
[2023-03-17 08:34] LABS: BUN Creatinine Ratio 22.3 (10-20); Calcium 8.6 mg/dl (8.6-10.3); Est GFR (African American) 96.2 ml/min; Magnesium 2.4 mg/dl (1.7-2.4); Potassium 3.9 mmol/L (3.5-5.1)
--- NOTE | 2023-03-17 08:56 | Surgery Progress Note ---
Date of Service March 17, 2023 Assessment & Plan (1) Diverticulitis of intestine with abscess: Plan: Complicated diverticulitis with less than 2 cm abscess as well as suspicion for enterocolic and colovesical fistulas. He remains hemodynamically stable and af ebrile on IV antibiotics. Patient's symptoms are improving. Continue n.p.o. status for now with IV fluids. Ambulate May have chemical DVT prophylaxis Admission and Anticipated Discharge Date Admission Date: March 16, 2023 Subjective Patient was seen and examined this a.m. he states that he is feeling improved with decreased abdominal pain. He denies nausea vomiting fevers chills overnight. Physical Exam Constitutional: healthy appearing; not ill appearing, not in distress and not diaphoretic Respiratory: normal respiratory effort; no respiratory distress, no labored breathing and does not use accessory muscles Gastrointestinal (Abdomen): Abdomen is soft, nontender, no rebound. Results & Data Vital Signs (Past 12 Hours) Vital Signs Temp Pulse Pulse Resp BP BP Pulse Ox 03/17/23 08:39 67 03/17/23 07:23 36.8 C 64 18 147/82 H 93 03/17/23 05:42 66 129/70 03/17/23 05:22 67 135/71 03/17/23 04:09 37.0 C 61 18 152/82 H 93 03/17/23 00:04 37.1 C 54 L 18 146/68 H 94 O2 Del Method 03/17/23 08:39 03/17/23 07:23 Room Air 03/17/23 05:42 03/17/23 05:22 03/17/23 04:09 Room Air 03/17/23 00:04 Room Air PG Care Time/CCT Total # of Minutes Spent Total Time Spent with Patient: Total time spent is greater than 50% in coordination of care (as documented) at patient's floor/unit and/or counseling patient: Coding Level of Care Code 99403 SUB INP/OBS CARE 03/30MIN Diagnoses Diverticulitis of large intestine with abscess without bleeding K57.20 Diverticulitis site: large intestine Diverticulitis bleeding: without bleeding (1) Diverticulitis of intestine with abscess Diverticulitis site: large intestine Diverticulitis bleeding: without bleeding Qualified Code(s): K57.20 - Diverticulitis of large intestine with perforation and abscess without bleeding
--- NOTE | 2023-03-17 19:35 | Hospitalist Progress Note ---
Date of Service March 17, 2023 Assessment & Plan (1) Diverticulitis of intestine with abscess: Plan: 68 yo male with a PMH of ventricular tachycardia s/p ICD, HLD, BPH, and HTN presents with abdominal pain. #Diverticulitis with Abscess #Small Bowel Obstruction -presented with 3 wks progressively worsening abdominal pain. Leukocytosis 13. CXR unremarkable. UA without infection. -CT A/P: Acute to subacute sigmoid diverticulitis, likely with contained perforation. Small foci of extraluminal gas adjacent to the sigmoid colon, and small intramural abscesses. 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 There may also be a developing colovesicular fistula. Upstream small bowel loops are dilated and fluid-filled, and the distal small bowel/terminal ileum is decompressed which is consistent with a small bowel obstruction. -Abx management for now, appreciate surgical backup, anticipate improvement with abx and conservative care #H/o ventricular tachycardia s/p ICD -on metoprolol succinate 100mg daily at home -while NPO, will cover with Lopressor IV 5mg q6h -consider dose reduction in outpatient setting as patient seems to have HRs in the 50s at his current home dose, asymptomatic #HTN -resume losartan, amlodipine, metoprolol when able #HLD -resume statin when able #BPH -resume flomax when able DVT ppx: SCDs/ambulation; currently avoiding chemical in case of procedure FEN/GI: strict NPO, IVF Code Status: full Dispo: med tele (2) SBO (small bowel obstruction): (3) BPH w urinary obs/LUTS: (4) Hx of ventricular tachycardia: (5) Single implantable cardioverter-defibrillator (ICD) in situ: (6) HTN (hypertension): (7) Hyperlipidemia: (8) GERD (gastroesophageal reflux disease): Admission and Anticipated Discharge Date Admission Date: March 16, 2023 Subjective pain under control. no new complaints. updated on plan of care, he expressed understanding. surgery input appreciated as well Review of Systems Review of Systems: All systems reviewed & are unremarkable except as noted in HPI & below Physical Exam Physical Exam: gen aao pleasant nad heent nc at mmm breathing unlabored no accessory muscles good effort skin no rashes no pallor or icterus neuro no focal deficits abd soft nd mild tenderness no guarding no rebound nonfocal exam Results & Data Results & Data Vital Signs (Past 12 Hours) Vital Signs Temp Pulse Pulse Resp BP BP Pulse Ox 03/17/23 18:08 66 149/90 H 03/17/23 17:45 69 155/83 H 03/17/23 17:35 66 03/17/23 15:28 98.8 F 75 18 151/83 H 95 03/17/23 13:39 63 143/72 H 03/17/23 12:59 67 130/77 03/17/23 11:55 98.4 F 66 18 163/80 H 92 03/17/23 08:39 67 O2 Del Method 03/17/23 18:08 03/17/23 17:45 03/17/23 17:35 03/17/23 15:28 Room Air 03/17/23 13:39 03/17/23 12:59 03/17/23 11:55 Room Air 03/17/23 08:39 PG Care Time/CCT Total # of Minutes Spent Total Time Spent with Patient: Total time spent is greater than 50% in coordination of care (as documented) at patient's floor/unit and/or counseling patient: Coding Level of Care Code 09139 SUB INP/OBS CARE 3/50MIN Diagnoses Diverticulitis of large intestine with abscess without bleeding K57.20 Diverticulitis site: large intestine Diverticulitis bleeding: without bleeding SBO (small bowel obstruction) K56.609 BPH w urinary obs/LUTS N40.1; N13.8 Hx of ventricular tachycardia Z86.79 Single implantable cardioverter-defibrillator (ICD) in situ Z95.810 HTN (hypertension) I10 Hyperlipidemia E78.5 GERD (gastroesophageal reflux disease) K21.9 (1) Diverticulitis of intestine with abscess Diverticulitis site: large intestine Diverticulitis bleeding: without bleeding Qualified Code(s): K57.20 - Diverticulitis of large intestine with perforation and abscess without bleeding
[2023-03-18] MEDS: METOPROLOL TARTRATE 1 MG/ML VIAL IV SCH ×5 (01:04→23:48)
[2023-03-18] MEDS: LACTATED RINGER'S 1,000 ML IV SCH ×2 (01:05→10:45)
[2023-03-18] MEDS: PIPERACILLIN/TAZOBACTAM 4.5 GM in DEXTROSE 5% MINI-B 100 ML IV SCH ×3 (05:44→21:39)
[2023-03-18 06:53] LABS: Basophils # (auto) 0.04 K/uL (0.00-0.20); Basophils % (auto) 0.5 %; Eosinophils # (auto) 0.27 K/uL (0.00-0.50); Eosinophils % (auto) 3.2 %; Hematocrit (blood only) 39.4 % (42.0-52.0); Immature Granulocytes # (auto) 0.03 K/uL (0.01-0.20); Immature Granulocytes % (auto) 0.4 %; Lymphocytes # (auto) 1.55 K/uL (1.20-3.40); Lymphocytes % (auto) 18.4 %; Mean Corpuscular Hemoglobin 30.4 pg (25.0-34.0); Mean Corpuscular Volume 92.3 fL (80.0-100.0); Mean Platelet Volume 9.4 fL (9.4-12.4); Monocytes # (auto) 0.91 K/uL (0.11-0.59); Monocytes % (auto) 10.8 %; Neutrophils # (auto) 5.61 K/uL (1.40-6.50); Neutrophils % (auto) 66.7 %; Platelet Count 188 K/uL (130-400); RDW Coefficient of Variation 12.2 % (11.5-14.5); RDW Standard Deviation 41.1 fL (36.4-46.3); Red Blood Count 4.27 M/uL (4.70-6.10); White Blood Count 8.41 K/ul (4.8-10.8)
[2023-03-18 07:13] LABS: BUN Creatinine Ratio 23.4 (10-20); Calcium 8.6 mg/dl (8.6-10.3); Creatinine Clr Calc Pharmacy 96.7 ml/min; Est GFR (African American) 108.1 ml/min; Est GFR (Non-African American) 93.2 ml/min; Potassium 3.7 mmol/L (3.5-5.1)
[2023-03-18] MEDS: ACETAMINOPHEN 1,000 MG/100 ML VIAL IV PRN (08:11)
--- NOTE | 2023-03-18 10:03 | Surgery Progress Note ---
Date of Service March 18, 2023 Assessment & Plan (1) Diverticulitis of intestine with abscess: Plan: con't IV abx begin clears slowly WBC nL Admission and Anticipated Discharge Date Admission Date: March 16, 2023 Subjective pain improved no fevers passing some flatus sips Review of Systems Constitutional: + anorexia; no fever and no chills Respiratory: no cough and no dyspnea Cardiovascular: no chest pain Gastrointestinal: + abdominal pain; no nausea, no vomiting and no change in bowel habits Genitourinary: no dysuria Physical Exam Constitutional: WD/WN, vitals as above Respiratory: normal respiratory effort, lungs clear to auscultation Cardiovascular: RRR, no murmur, no edema Gastrointestinal (Abdomen): Inspection/Auscultation: abdomen normal to inspection and normal bowel sounds; abdomen not distended Percussion/Palpation: + abdomen tender and abdomen soft; no guarding and abdomen not rigid Skin: no rashes, warm and dry Results & Data Vital Signs (Past 12 Hours) Vital Signs Temp Pulse Pulse Resp BP BP Pulse Ox 03/18/23 07:51 37.1 C 55 L 18 141/83 H 93 03/18/23 06:47 71 03/18/23 05:43 65 122/78 03/18/23 03:12 65 122/78 03/18/23 03:09 37.1 C 54 L 18 138/85 95 03/18/23 01:04 64 150/68 H 03/17/23 23:13 37.2 C 64 18 150/78 H 95 O2 Del Method 03/18/23 07:51 Room Air 03/18/23 06:47 03/18/23 05:43 03/18/23 03:12 03/18/23 03:09 Room Air 03/18/23 01:04 03/17/23 23:13 Room Air (1) Diverticulitis of intestine with abscess Diverticulitis site: large intestine Diverticulitis bleeding: without bleeding Qualified Code(s): K57.20 - Diverticulitis of large intestine with perforation and abscess without bleeding
[2023-03-18] MEDS: FAMOTIDINE 20 MG in SYRINGE 3 ML IV SCH (10:43)
--- NOTE | 2023-03-18 15:15 | Hospitalist Progress Note ---
Date of Service March 18, 2023 Assessment & Plan (1) Diverticulitis of intestine with abscess: Plan: 68 yo male with a PMH of ventricular tachycardia s/p ICD, HLD, BPH, and HTN presents with abdominal pain. #Diverticulitis with Abscess #Small Bowel Obstruction -presented with 3 wks progressively worsening abdominal pain. Leukocytosis 13. CXR unremarkable. UA without infection. -CT A/P: Acute to subacute sigmoid diverticulitis, likely with contained perforation. Small foci of extraluminal gas adjacent to the sigmoid colon, and small intramural abscesses. 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 There may also be a developing colovesicular fistula. Upstream small bowel loops are dilated and fluid-filled, and the distal small bowel/terminal ileum is decompressed which is consistent with a small bowel obstruction. -Abx management for now, appreciate surgical backup, anticipate improvement with abx and conservative care On 03/18 diet was added. started on a clear liquid diet. #H/o ventricular tachycardia s/p ICD -on metoprolol succinate 100mg daily at home -while NPO, will cover with Lopressor IV 5mg q6h -consider dose reduction in outpatient setting as patient seems to have HRs in the 50s at his current home dose, asymptomatic #HTN -resume losartan, amlodipine, metoprolol when able #HLD -resume statin when able #BPH -resume flomax when able DVT ppx: SCDs/ambulation; currently avoiding chemical in case of procedure FEN/GI: strict NPO, IVF Code Status: full Dispo: med tele (2) SBO (small bowel obstruction): (3) BPH w urinary obs/LUTS: (4) Hx of ventricular tachycardia: (5) Single implantable cardioverter-defibrillator (ICD) in situ: (6) HTN (hypertension): (7) Hyperlipidemia: (8) GERD (gastroesophageal reflux disease): Admission and Anticipated Discharge Date Admission Date: March 16, 2023 Subjective Patient reports tolerating liquid diet. Review of Systems Review of Systems: All systems reviewed & are unremarkable except as noted in HPI & below Physical Exam Physical Exam: gen aao pleasant nad heent nc at mmm breathing unlabored no accessory muscles neuro no focal deficits abd soft nd mild tenderness no guarding no rebound nonfocal exam Results & Data Results & Data Vital Signs (Past 12 Hours) Vital Signs Temp Pulse Pulse Resp BP BP Pulse Ox 03/18/23 14:18 72 176/92 H 03/18/23 11:40 36.7 C 52 L 18 151/88 H 93 03/18/23 08:00 60 03/18/23 07:51 37.1 C 55 L 18 141/83 H 93 03/18/23 06:47 71 03/18/23 05:43 65 122/78 O2 Del Method 03/18/23 14:18 03/18/23 11:40 Room Air 03/18/23 08:00 03/18/23 07:51 Room Air 03/18/23 06:47 03/18/23 05:43 PG Care Time/CCT Total # of Minutes Spent Total Time Spent with Patient: Total time spent is greater than 50% in coordination of care (as documented) at patient's floor/unit and/or counseling patient: Coding Level of Care Code 90886 SUB INP/OBS CARE 235MIN Diagnoses Diverticulitis of large intestine with abscess without bleeding K57.20 Diverticulitis site: large intestine Diverticulitis bleeding: without bleeding SBO (small bowel obstruction) K56.609 BPH w urinary obs/LUTS N40.1; N13.8 Hx of ventricular tachycardia Z86.79 Single implantable cardioverter-defibrillator (ICD) in situ Z95.810 HTN (hypertension) I10 Hyperlipidemia E78.5 GERD (gastroesophageal reflux disease) K21.9 (1) Diverticulitis of intestine with abscess Diverticulitis site: large intestine Diverticulitis bleeding: without bleeding Qualified Code(s): K57.20 - Diverticulitis of large intestine with perforation and abscess without bleeding
[2023-03-19] MEDS ORDERED: COUGH DROP (SUGAR FREE) LOZ 24 LOZ/1 BOX BUCCAL PRN (00:31)
[2023-03-19] MEDS: PIPERACILLIN/TAZOBACTAM 4.5 GM in DEXTROSE 5% MINI-B 100 ML IV SCH ×3 (05:57→20:28)
[2023-03-19] MEDS: METOPROLOL TARTRATE 1 MG/ML VIAL IV SCH ×2 (05:57→12:24)
[2023-03-19 06:00] LABS: Hemoglobin 12.5 g/dl (14.0-18.0); Mean Corpuscular Hgb Conc 32.9 g/dL (32.0-36.0); Mean Corpuscular Volume 91.1 fL (80.0-100.0); Mean Platelet Volume 9.2 fL (9.4-12.4); Platelet Count 214 K/uL (130-400); RDW Coefficient of Variation 12.1 % (11.5-14.5); RDW Standard Deviation 40.5 fL (36.4-46.3); Red Blood Count 4.17 M/uL (4.70-6.10); White Blood Count 6.61 K/ul (4.8-10.8)
[2023-03-19 06:16] LABS: BUN Creatinine Ratio 11.4 (10-20); Calcium 8.7 mg/dl (8.6-10.3); Creatinine Clr Calc Pharmacy 84.7 ml/min; Est GFR (African American) 102.3 ml/min; Est GFR (Non-African American) 88.3 ml/min; Potassium 3.7 mmol/L (3.5-5.1)
[2023-03-19] MEDS: FAMOTIDINE 20 MG in SYRINGE 3 ML IV SCH (08:06)
--- NOTE | 2023-03-19 10:00 | Surgery Progress Note ---
Date of Service March 19, 2023 Assessment & Plan (1) Diverticulitis of intestine with abscess: Plan: clinically improving IV abx advance diet as tolerated good progress Admission and Anticipated Discharge Date Admission Date: March 16, 2023 Subjective feels better taking liquids no fevers Review of Systems Constitutional: no fever and no chills Respiratory: no cough and no dyspnea Cardiovascular: no chest pain Gastrointestinal: + abdominal pain (mild); no nausea and n o vomiting Genitourinary: no dysuria Neurologic: no localized weakness and no generalized weakness Psychiatric: no behavioral changes Physical Exam Constitutional: WD/WN, vitals as above Respiratory: normal respiratory effort, lungs clear to auscultation Cardiovascular: RRR, no murmur, no edema Gastrointestinal (Abdomen): Inspection/Auscultation: abdomen normal to inspection and normal bowel sounds; abdomen not distended Percussion/Palpation: + abdomen tender and abdomen soft; no guarding and abdomen not rigid Musculoskeletal: Head/Neck/Chest: normocephalic and head atraumatic Skin: no rashes, warm and dry Results & Data Vital Signs (Past 12 Hours) Vital Signs Temp Pulse Pulse Resp BP BP Pulse Ox 03/19/23 07:46 37.1 C 56 L 18 163/89 H 96 03/19/23 07:29 60 03/19/23 06:27 56 L 03/19/23 05:57 61 170/87 H 03/19/23 03:08 36.8 C 61 18 170/87 H 97 03/19/23 00:25 58 L 03/18/23 23:54 37.0 C 62 18 170/102 H 97 03/18/23 23:48 62 162/88 H 03/18/23 22:34 65 O2 Del Method 03/19/23 07:46 Room Air 03/19/23 07:29 03/19/23 06:27 03/19/23 05:57 03/19/23 03:08 Room Air 03/19/23 00:25 03/18/23 23:54 Room Air 03/18/23 23:48 03/18/23 22:34 (1) Diverticulitis of intestine with abscess Diverticulitis site: large intestine Diverticulitis bleeding: without bleeding Qualified Code(s): K57.20 - Diverticulitis of large intestine with perforation and abscess without bleeding
--- NOTE | 2023-03-19 12:23 | Hospitalist Progress Note ---
Date of Service March 19, 2023 Assessment & Plan (1) Diverticulitis of intestine with abscess: Plan: 68 yo male with a PMH of ventricular tachycardia s/p ICD, HLD, BPH, and HTN presents with abdominal pain. #Diverticulitis with Abscess #Small Bowel Obstruction -presented with 3 wks progressively worsening abdominal pain. Leukocytosis 13. CXR unremarkable. UA without infection. -CT A/P: Acute to subacute sigmoid diverticulitis, likely with contained perforation. Small foci of extraluminal gas adjacent to the sigmoid colon, and small intramural abscesses. 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 There may also be a developing colovesicular fistula. Upstream small bowel loops are dilated and fluid-filled, and the distal small bowel/terminal ileum is decompressed which is consistent with a small bowel obstruction. -Abx management for now, appreciate surgical backup, anticipate improvement with abx and conservative care On 03/18 diet was added. started on a clear liquid diet. On 03/19 will switch lunch to full liquid diet, #H/o ventricular tachycardia s/p ICD -on metoprolol succinate 100mg daily at home -will resume his home meds at a lower dose given his acute infection. -consider dose reduction in outpatient setting as patient seems to have HRs in the 50s at his current home dose, asymptomatic #HTN -resumed losartan, amlodipine, metoprolol on 03/19 #HLD -resumed statin on 03/19 #BPH -resume flomax on 03/19 DVT ppx: SCDs/ambulation; currently avoiding chemical in case of procedure FEN/GI: full liquid Code Status: full Dispo: med tele (2) SBO (small bowel obstruction): (3) BPH w urinary obs/LUTS: (4) Hx of ventricular tachycardia: (5) Single implantable cardioverter-defibrillator (ICD) in situ: (6) HTN (hypertension): (7) Hyperlipidemia: (8) GERD (gastroesophageal reflux disease): Admission and Anticipated Discharge Date Admission Date: March 16, 2023 Subjective 68 yo male reports no new symptoms. He states his pain has improved, he had a good nights sleep. He even has been ambulating the halls. He was concerned about his telemonitor going to 300 beats when he was brushing his teeth, but he stated he had no symptoms and EKG was also normal. Review of Systems Review of Systems: All systems reviewed & are unremarkable except as noted in HPI & below Physical Exam Physical Exam: gen aao pleasant nad heent nc at mmm breathing unlabored no accessory muscles neuro no focal deficits Results & Data Results & Data Vital Signs (Past 12 Hours) Vital Signs Temp Pulse Pulse Resp BP BP Pulse Ox 03/19/23 11:14 36.8 C 66 18 163/91 H 96 03/19/23 07:46 37.1 C 56 L 18 163/89 H 96 03/19/23 07:29 60 03/19/23 06:27 56 L 03/19/23 05:57 61 170/87 H 03/19/23 03:08 36.8 C 61 18 170/87 H 97 03/19/23 00:25 58 L O2 Del Method 03/19/23 11:14 Room Air 03/19/23 07:46 Room Air 03/19/23 07:29 03/19/23 06:27 03/19/23 05:57 03/19/23 03:08 Room Air 03/19/23 00:25 PG Care Time/CCT Total # of Minutes Spent Total Time Spent with Patient: Total time spent is greater than 50% in coordination of care (as documented) at patient's floor/unit and/or counseling patient: Coding Level of Care Code 72018 SUB INP/OBS CARE 350MIN Diagnoses Diverticulitis of large intestine with abscess without bleeding K57.20 Diverticulitis site: large intestine Diverticulitis bleeding: without bleeding SBO (small bowel obstruction) K56.609 BPH w urinary obs/LUTS N40.1; N13.8 Hx of ventricular tachycardia Z86.79 Single implantable cardioverter-defibrillator (ICD) in situ Z95.810 HTN (hypertension) I10 Hyperlipidemia E78.5 GERD (gastroesophageal reflux disease) K21.9 (1) Diverticulitis of intestine with abscess Diverticulitis site: large intestine Diverticulitis bleeding: without bleeding Qualified Code(s): K57.20 - Diverticulitis of large intestine with perforation and abscess without bleeding
[2023-03-19] MEDS: LOSARTAN POTASSIUM 50 MG TAB PO SCH (12:48)
[2023-03-19] MEDS: TAMSULOSIN HCL 0.4 MG CAP PO SCH (12:49)
[2023-03-19] MEDS: METOPROLOL SUCC 50MG EXT REL TAB PO SCH (12:49)
[2023-03-19] MEDS: amLODIPine BESYLATE 5 MG TAB PO SCH (14:10)
[2023-03-19] MEDS: guaiFENesin 600 MG TABCR PO SCH (20:28)
[2023-03-19] MEDS: ATORVASTATIN 10 MG TAB PO SCH (20:28)
--- NOTE | 2023-03-19 21:03 | Electrocardiogram Report ---
Test Reason : Blood Pressure : / mmHG Vent. Rate : 069 BPM Atrial Rate : 069 BPM P-R Int : 176 ms QRS Dur : 084 ms QT Int : 394 ms P-R-T Axes : 050 -15 -57 degrees QTc Int : 422 ms Sinus rhythm with frequent Premature ventricular complexes Inferior infarct (cited on or before 14-JUN-2018) Abnormal ECG When compared with ECG of 14-JUN-2018 17:35, Premature ventricular complexes are now Present Nonspecific T wave abnormality, worse in Anterior leads Confirmed by Akhil Vincent ([id number]) on 03/19/2023 9:03:24 PM Referred By: REFERRED SELF Confirmed By:Akhil Vincent
[2023-03-20] MEDS: PIPERACILLIN/TAZOBACTAM 4.5 GM in DEXTROSE 5% MINI-B 100 ML IV SCH ×3 (04:15→20:02)
--- NOTE | 2023-03-20 08:14 | Surgery Progress Note ---
<Statement entered by Rudolph Robles, - 03/21/23 15:57> This case was discussed with the surgical PA. I agreed with the plan. Date of Service March 20, 2023 Assessment & Plan (1) Diverticulitis of intestine with abscess: Plan: Patient reports feeling well Denies Abdominal pain, fever, chills, n/v Having diarrhea tolerating diet Abdomen soft , non distended, mildly TTP 1/10 LLQ VSS Labs not drawn yet Encouraged ambulation Improving Admission and Anticipated Discharge Date Admission Date: March 16, 2023 Subjective Patient reports feeling well Denies Abdominal pain, fever, chills, n/v Having diarrhea tolerating diet Review of Systems Constitutional: no fever and no chills Eyes: + corrective lenses Respiratory: no dyspnea Cardiovascular: no chest pain Gastrointestinal: + diarrhea/loose stools; no abdominal pa in, no nausea and no vomiting Genitourinary: no dysuria Musculoskeletal: no muscle weakness Integumentary: no rash Physical Exam Physical Exam: alert oriented Constitutional: well developed, cooperative and comfortable; no acute distress ENMT: external ear and nose normal, oropharynx normal Neck: trachea midline, no thyromegaly Respiratory: normal respiratory effort and able to speak in complete sentences; no respiratory distress and no labored breathing Cardiovascular: Rate/Rhythm: regular rate Gastrointestinal (Abdomen): Inspection/Auscultation: abdomen not distended Percussion/Palpation: + abdomen tender (mild TTP LLQ 1/10) and abdomen soft; no guarding Musculoskeletal: no cyanosis or clubbing, extremities motor strength 5/5 Skin: no rashes, warm and dry Neurologic: awake; not confused Psychiatric: A+Ox3, euthymic affect Results & Data Vital Signs (Past 12 Hours) Vital Signs Temp Pulse Pulse Resp BP Pulse Ox O2 Del Method 03/20/23 07:54 98.6 F 63 18 164/84 H 92 Room Air 03/20/23 03:42 97.3 F L 53 L 16 165/90 H 96 Room Air 03/19/23 23:20 98.6 F 59 L 18 144/77 H 97 Room Air 03/19/23 21:54 54 L PG Care Time/CCT Total # of Minutes Spent Total Time Spent with Patient: Total time spent is greater than 50% in coordination of care (as documented) at patient's floor/unit and/or counseling patient: Coding Level of Care Code 71529 Post Operative Follow-Up Diagnoses Diverticulitis of large intestine with abscess without bleeding K57.20 Diverticulitis site: large intestine Diverticulitis bleeding: without bleeding (1) Diverticulitis of intestine with abscess Diverticulitis site: large intestine Diverticulitis bleeding: without bleeding Qualified Code(s): K57.20 - Diverticulitis of large intestine with perforation and abscess without bleeding
[2023-03-20] MEDS: METOPROLOL SUCC 50MG EXT REL TAB PO SCH (08:45)
[2023-03-20] MEDS: FAMOTIDINE 20 MG in SYRINGE 3 ML IV SCH (08:45)
[2023-03-20] MEDS: amLODIPine BESYLATE 5 MG TAB PO SCH (08:45)
[2023-03-20] MEDS: TAMSULOSIN HCL 0.4 MG CAP PO SCH (08:45)
[2023-03-20] MEDS: LOSARTAN POTASSIUM 50 MG TAB PO SCH (08:45)
[2023-03-20] MEDS: guaiFENesin 600 MG TABCR PO SCH ×2 (12:22→20:01)
[2023-03-20] MEDS: ATORVASTATIN 10 MG TAB PO SCH (20:02)
--- NOTE | 2023-03-20 21:12 | Hospitalist Progress Note ---
Date of Service March 20, 2023 Assessment & Plan (1) Diverticulitis of intestine with abscess: Plan: 68 yo male with a PMH of ventricular tachycardia s/p ICD, HLD, BPH, and HTN presents with abdominal pain. #Diverticulitis with Abscess #Small Bowel Obstruction -presented with 3 wks progressively worsening abdominal pain. Leukocytosis 13. CXR unremarkable. UA without infection. -CT A/P: Acute to subacute sigmoid diverticulitis, likely with contained perforation. Small foci of extraluminal gas adjacent to the sigmoid colon, and small intramural abscesses. 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 There may also be a developing colovesicular fistula. Upstream small bowel loops are dilated and fluid-filled, and the distal small bowel/terminal ileum is decompressed which is consistent with a small bowel obstruction. -Abx management for now, appreciate surgical backup, anticipate improvement with abx and conservative care On 03/18 diet was added. started on a clear liquid diet. On 03/19 will switch lunch to full liquid diet, On 03/20 advanced to a low fiber diet. #H/o ventricular tachycardia s/p ICD -on metoprolol succinate 100mg daily at home -will resume his home meds at a lower dose given his acute infection. -consider dose reduction in outpatient setting as patient seems to have HRs in the 50s at his current home dose, asymptomatic #HTN -resumed losartan, amlodipine, metoprolol on 03/19 #HLD -resumed statin on 03/19 #BPH -resume flomax on 03/19 DVT ppx: SCDs/ambulation; currently avoiding chemical in case of procedure FEN/GI: full liquid Code Status: full Dispo: med tele (2) SBO (small bowel obstruction): (3) BPH w urinary obs/LUTS: (4) Hx of ventricular tachycardia: (5) Single implantable cardioverter-defibrillator (ICD) in situ: (6) HTN (hypertension): (7) Hyperlipidemia: (8) GERD (gastroesophageal reflux disease): Admission and Anticipated Discharge Date Admission Date: March 16, 2023 Subjective Patient reports no new symptoms. Patient is tolerating diet. Review of Systems Review of Systems: All systems reviewed & are unremarkable except as noted in HPI & below Physical Exam Physical Exam: gen aao pleasant nad heent nc at mmm breathing unlabored no accessory muscles neuro no focal deficits Results & Data Results & Data Vital Signs (Past 12 Hours) Vital Signs Temp Pulse Pulse Resp BP Pulse Ox O2 Del Method 03/20/23 19:00 36.8 C 57 L 18 167/84 H 94 Room Air 03/20/23 15:02 37.1 C 64 18 138/81 97 Room Air 03/20/23 14:00 72 03/20/23 11:39 36.4 C L 69 20 165/84 H 96 Room Air PG Care Time/CCT Total # of Minutes Spent Total Time Spent with Patient: Total time spent is greater than 50% in coordination of care (as documented) at patient's floor/unit and/or counseling patient: Coding Level of Care Code 23460 SUB INP/OBS CARE 235MIN Diagnoses Diverticulitis of large intestine with abscess without bleeding K57.20 Diverticulitis site: large intestine Diverticulitis bleeding: without bleeding SBO (small bowel obstruction) K56.609 BPH w urinary obs/LUTS N40.1; N13.8 Hx of ventricular tachycardia Z86.79 Single implantable cardioverter-defibrillator (ICD) in situ Z95.810 HTN (hypertension) I10 Hyperlipidemia E78.5 GERD (gastroesophageal reflux disease) K21.9 (1) Diverticulitis of intestine with abscess Diverticulitis site: large intestine Diverticulitis bleeding: without bleeding Qualified Code(s): K57.20 - Diverticulitis of large intestine with perforation and abscess without bleeding
[2023-03-21] MEDS: PIPERACILLIN/TAZOBACTAM 4.5 GM in DEXTROSE 5% MINI-B 100 ML IV SCH ×2 (03:43→11:52)
[2023-03-21] MEDS: amLODIPine BESYLATE 5 MG TAB PO SCH (09:00)
[2023-03-21] MEDS: guaiFENesin 600 MG TABCR PO SCH (09:01)
[2023-03-21] MEDS: TAMSULOSIN HCL 0.4 MG CAP PO SCH (09:02)
[2023-03-21] MEDS: METOPROLOL SUCC 50MG EXT REL TAB PO SCH (09:02)
[2023-03-21] MEDS: LOSARTAN POTASSIUM 50 MG TAB PO SCH (09:02)
[2023-03-21] MEDS: FAMOTIDINE 20 MG in SYRINGE 3 ML IV SCH (09:04)
--- NOTE | 2023-03-21 13:34 | Discharge Summary ---
Date of Service March 21, 2023 Admission HPI Per Admitting Provider 68 yo male with a PMH of ventricular tachycardia s/p ICD, HLD, BPH, and HTN presents with abdominal pain. 3 weeks ago patient had mild lower abdominal pain which has progressively worsened since. Last night he notes the abdominal pain to be a 9/10 and had associated nausea, nonbloody vomiting and diarrhea. Of note 1 week ago he did begin having a productive cough with some fatigue which has been improving but still has this lingering cough. At that time he was near someone with COVID. Also had a low-grade fever of 100.4 with chills two nights ago. Denies chest pain, sob, dysuria, extremity weakness/numbness/tingling. No history of abdominal surgeries. Has been able to tolerate food and liquids this past week and has been staying well hydrated. Discharge Exam gen [facility] at mmm breathing unlabored no accessory muscles neuro no focal deficits Discharge Data Allergies Allergy/AdvReac Type Severity Reaction Status Date / Time levofloxacin Allergy Unknown DIFFICULTY Verified 11/02/22 16:22 WALKING triamcinolone Allergy Unknown Nose Bleeds Verified 11/02/22 16:22 Consultations 03/16/23 13:30 Consult General Surgery Stat 03/16/23 13:46 ED Decision to Admit Stat Ordered Studies 03/16/23 12:02 CT Abd and Pelvis [CT abd pelvis IV con only] Stat Hospital Course (1) Diverticulitis of intestine with abscess: 68 yo male with a PMH of ventricular tachycardia s/p ICD, HLD, BPH, and HTN presents with abdominal pain. #Diverticulitis with Abscess #Small Bowel Obstruction -presented with 3 wks progressively worsening abdominal pain. Leukocytosis 13. CXR unremarkable. UA without infection. -CT A/P: Acute to subacute sigmoid diverticulitis, likely with contained perforation. Small foci of extraluminal gas adjacent to the sigmoid colon, and small intramural abscesses. 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 There may also be a developing colovesicular fistula. Upstream small bowel loops are dilated and fluid-filled, and the distal small bowel/terminal ileum is decompressed which is consistent w ith a small bowel obstruction. -Abx management for now, appreciate surgical backup, anticipate improvement with abx and conservative care On 03/18 diet was added. started on a clear liquid diet. On 03/19 will switch lunch to full liquid diet, On 03/20 advanced to a low fiber diet. #H/o ventricular tachycardia s/p ICD -on metoprolol succinate 100mg daily at home -will resume his home meds at a lower dose given his acute infection. -consider dose reduction in outpatient setting as patient seems to have HRs in the 50s at his current home dose, asymptomatic #HTN -resumed losartan, amlodipine, metoprolol on 03/19 #HLD -resumed statin on 03/19 #BPH -resume flomax on 03/19 DVT ppx: SCDs/ambulation; currently avoiding chemical in case of procedure FEN/GI: full liquid Code Status: full Dispo: med tele (2) SBO (small bowel obstruction): (3) BPH w urinary obs/LUTS: (4) Hx of ventricular tachycardia: (5) Single implantable cardioverter-defibrillator (ICD) in situ: (6) HTN (hypertension): (7) Hyperlipidemia: (8) GERD (gastroesophageal reflux disease): Discharge Plan Discharge Items Patient Disposition: Home - Self-Care Reason For Visit: ABDOMINAL PAIN Discharge Diagnosis: abdominal pain Activity: Resume your previous activity Non-emergency contact: Primary Care Provider Call non-emergency contact if: you have any medication questions Follow-up/Referrals: Hever Myers MD [Primary Care Provider] - Diet: Low Fiber Addtl Attending Provider Instructions: A low fiber diet is typically recommended for individuals with certain medical conditions or as a temporary measure to relieve digestive symptoms. Here is some basic information about a low fiber diet: 1. Purpose: A low fiber diet limits the intake of foods high in dietary fiber to reduce the workload on the digestive system and ease symptoms like diarrhea, abdominal pain, or cramping. 2. Foods to limit or avoid: - Whole grains (e.g., whole wheat, whole oats, brown rice) - Legumes (e.g., lentils, beans, chickpeas) - Nuts and seeds - Raw fruits and vegetables (except for some cooked or peeled options) - High-fiber cereals or breads 3. Foods generally allowed: - Refined grains (e.g., white bread, white rice, refined cereals) - Cooked and peeled fruits and vegetables (e.g., applesauce, canned fruits, cooked carrots) - Lean meats, poultry, and fish - Dairy products (unless lactose intolerant) - Eggs 4. Cooking and preparation methods: - Choose peeled or cooked fruits and vegetables instead of raw ones. - Remove seeds and skin from fruits and vegetables. - Opt for refined grain products instead of whole grains. - Cook or soak legumes to reduce their fiber content. Pending Studies at Discharge: No Stand-Alone Forms: My [facility], Smoking Cessation Medications and DC Order Prescriptions: New guaifenesin [Mucinex] 600 mg Tablet Extended Release 12hr 1,200 mg PO Q12 Qty: 28 0RF amoxicillin-pot clavulanate 875-125 mg tablet 1 tab PO BID Qty: 18 0RF Continued losartan 100 mg tablet 100 mg PO QAM Qty: 90 3RF atorvastatin 10 mg tablet 10 mg PO QPM Qty: 90 3RF metoprolol succinate 100 mg tablet extended release 24 hr 100 mg PO QAM Qty: 90 3RF amlodipine 10 mg tablet 10 mg PO QAM Qty: 90 3RF Rx Instructions: 10 mg PO daily; multivitamin [Daily Multi-Vitamin] Tablet 1 tab PO QAM tamsulosin 0.4 mg capsule 0.4 mg PO DAILY Qty: 30 11RF [place] 72-138-42-75-20 mg Capsule 1 cap PO DAILY acetaminophen [Tylenol Extra Strength] 500 mg Tablet 1,000 mg PO Q6H PRN (Reason: Pain) ascorbic acid (vitamin C) [Vitamin C] 500 mg Tablet 500 mg PO QAM cholecalciferol (vitamin D3) [Vitamin D3] 25 mcg (1,000 unit) Tablet 25 mcg PO QAM Held aspirin 81 mg Tablet,Delayed Release (Dr/Ec) 81 mg PO 3XWK Hold Instructions: Resume on 04/04/23. Rx Instructions: MON/WED/FRI Discharge Orders: Discharge Order (Routine); Ordered 03/21/23 Ordered By: Mina Meadows Admission Data Admit Date/Time: 03/16/23 14:08 Attending Provider: Mina Meadows Admit Provider: Lul Deleon Primary Care Provider: Hever Myers Other Providers: Rudolph Robles; Fredis Morales Coding Diagnoses Diverticulitis of large intestine with abscess without bleeding K57.20 Diverticulitis site: large intestine Diverticulitis bleeding: without bleeding SBO (small bowel obstruction) K56.609 BPH w urinary obs/LUTS N40.1; N13.8 Hx of ventricular tachycardia Z86.79 Single implantable cardioverter-defibrillator (ICD) in situ Z95.810 HTN (hypertension) I10 Hyperlipidemia E78.5 GERD (gastroesophageal reflux disease) K21.9
== END 2023-03-21 15:15 | disposition home or self-care (01) | DRG 392 ==
LOC: ED 09:32 → EDINP 14:08 → SUATTDRO 14:08 → 2N 15:04